=== PATIENT | female | born 1960 | race Caucasian/White ===

== ENCOUNTER 2018-01-21 18:16 | Outpatient (REF) | payer OTHER, SELFPAY ==
[2018-01-21 20:45] LABS: HCT 40.7 % (36.0-46.0); HGB 13.5 g/dL (12.0-15.5)
[2018-01-21 21:31] LABS: ALT 74 U/L (12-78); AST 50 U/L (15-37); Albumin 3.4 g/dL (3.4-5.0); Alkaline Phosphatase 134 U/L (46-116); Anion Gap 12.1 mmol/L (3-11); BUN 15 mg/dL (7-18); Bilirubin, Total 0.3 mg/dL (0.2-1.0); CO2 22.9 mmol/L (21.0-32.0); CREATININE 0.81 mg/dL (0.55-1.02); Calcium 9.1 mg/dL (8.5-10.1); Chloride 105 mmol/L (98-107); Glucose 96 mg/dL (70-100); Magnesium 1.9 mg/dL (1.8-2.4); Potassium 4.1 mmol/L (3.5-5.1); Sodium 140 mmol/L (136-145); TSH (W/Ref FT4) 0.01 uIU/mL (0.358-3.74); Total Protein 7.2 g/dL (6.4-8.2)
[2018-01-21 22:15] LABS: FREE T4 1.67 ng/dL (0.76-1.46)
[2018-01-21 22:29] LABS: Cholesterol 142 mg/dL (50-200); HDL Cholesterol 44 mg/dL (40-60); LDL CHOLESTEROL 87 mg/dL (<100); Triglyceride 107 mg/dL (30-150)
== END 2018-01-21 18:17 ==
LOC: NCHCN 18:16
PROVIDERS: PCP Specialist/Technologist Athletic Trainer; Visit Provider Specialist/Technologist Athletic Trainer
DX: R10.13 Epigastric pain (principal); K21.9 Gastro-esophageal reflux disease without esophagitis
CPT/HCPCS: 80053; 80061; 83721; 83735; 84439; 84443; 85014; 85018

== ENCOUNTER 2018-02-04 15:07 | Outpatient (REF) | payer OTHER, SELFPAY ==
[2018-02-09 14:08] LABS: Helicobacter pylori Ag, Feces Positive (NEGAT)
== END 2018-02-04 15:27 ==
LOC: NCHCN 15:07
PROVIDERS: PCP Specialist/Technologist Athletic Trainer; Visit Provider Specialist/Technologist Athletic Trainer
DX: K21.9 Gastro-esophageal reflux disease without esophagitis (principal)
CPT/HCPCS: 87338

== ENCOUNTER 2018-03-09 00:46 | Outpatient (CLI) | payer OTHER, SELFPAY ==
--- NOTE | 2018-03-09 12:30 | DI.MAMMO_ITS ---
SYMPTOM/DIAGNOSIS: SCREENING, [facility], Z00.00 MAMMOGRAMS: Mammograms were interpreted according to the usual protocol including computer analysis with CAD system, tomosynthesis and C view imaging. Comparison is with the prior examinations. No masses or microcalcifications are seen. There is nothing to suggest malignancy. IMPRESSION: Negative mammogram. Routine screening is recommended. Category 1 , breast density A. MQSA ASSESSMENT OF FINDINGS: Negative. Category 1. Patient will receive a letter notifying them of these results. BI-RAD category A. The breasts are almost entirely fatty.
--- NOTE | 2018-03-09 13:05 | DI.DEXA_ITS ---
SYMPTOM/DIAGNOSIS: [facility], Z00.00, SCREENING FOR OSTEOPOROSIS DEXA SCAN: Routine examination. Evaluation of the spine shows no compression deformities. Evaluation of the left hip shows a total T score of -1.3 and a Z score of -0.4 , this is consistent with osteopenia and an increased fracture risk. Evaluation of the lumbar spine shows a total T score of -0.5 and a Z score of 1.0 which is within normal limits. No evidence of osteoporosis is seen. IMPRESSION: No evidence of osteoporosis.
== END 2018-03-09 01:06 ==
PROVIDERS: PCP Specialist/Technologist Athletic Trainer; Visit Provider Specialist/Technologist Athletic Trainer
DX: Z12.31 Encounter for screening mammogram for malignant neoplasm of breast (principal); Z00.00 Encounter for general adult medical examination without abnormal findings; M85.88 Other specified disorders of bone density and structure, other site
CPT/HCPCS: 77063; 77067; 77080

== ENCOUNTER 2018-11-12 19:35 | Outpatient (REF) | payer OTHER, SELFPAY ==
[2018-11-12 20:12] LABS: TSH 0.04 uIU/mL (0.358-3.74)
== END 2018-11-12 19:55 ==
LOC: NCHCN 19:35
PROVIDERS: PCP Specialist/Technologist Athletic Trainer; Visit Provider Family Medicine
DX: E03.9 Hypothyroidism, unspecified (principal)
CPT/HCPCS: 84443

== ENCOUNTER 2018-12-22 22:42 | Outpatient (REF) | payer OTHER, SELFPAY | END 2018-12-22 23:02 | LOC: NCHCN 22:42 | PROVIDERS: PCP Specialist/Technologist Athletic Trainer; Visit Provider Physician Assistant Medical | DX: R10.9 Unspecified abdominal pain (principal) | CPT/HCPCS: 87086 ==

== ENCOUNTER 2019-02-03 09:55 | Outpatient (REF) | payer OTHER, SELFPAY ==
[2019-02-03 19:47] LABS: Hemoglobin A1C 6.1 % (4.5-6.2)
[2019-02-03 20:01] LABS: ALT 41 U/L (14-59); AST 31 U/L (15-37); FREE T4 1.03 ng/dL (0.76-1.46); TSH 0.78 uIU/mL (0.36-3.74)
[2019-02-07 11:24] LABS: Hepatitis C Ab w Rflx HCV PCR Negative (NEGAT)
== END 2019-02-03 10:15 ==
LOC: NCHCN 09:55
PROVIDERS: PCP Specialist/Technologist Athletic Trainer; Visit Provider Family Medicine
DX: Z00.00 Encounter for general adult medical examination without abnormal findings (principal); R73.09 Other abnormal glucose; E03.9 Hypothyroidism, unspecified; R79.89 Other specified abnormal findings of blood chemistry; Z11.59 Encounter for screening for other viral diseases
CPT/HCPCS: 86803; 83036; 84439; 84443; 84450; 84460

== ENCOUNTER 2019-04-20 00:37 | Outpatient (CLI) | payer OTHER, SELFPAY ==
--- NOTE | 2019-04-20 17:04 | DI.MAMMO_ITS ---
EXAM: MG MAMMO SCREENING CLINICAL HISTORY: [facility], Z00.00, SCREENING TECHNIQUE: Bilateral full field digital CC and MLO mammographic images were obtained with 3D tomosyn thesis and utilizing computer aided detection (CAD). COMPARISON: Available for comparison. FINDINGS: Masses/Architectural Distortion: None seen. Microcalcifications: No suspicious pleomorphic-type are seen. Skin Thickening/Nipple Retraction: None. IMPRESSION: 1. No significant interval change with no specific features of malignancy noted. 2. Unless there is more urgent need, screening mammography is recommended, as per [place] [employer] guidelines. ACR BI-RAD Category- 1 Negative Breast Density - Category A - Almost entirely fatty A negative radiographic report should not delay biopsy if a dominant or clinically suspicious mass is present. Up to ten percent of cancers are not identified on mammography. A negative report may reinforce clinical impression. Adenosis and dense breasts may obscure an underlying neoplasm. False positive reports average 6 to 10%. Patient will receive a letter notifying them of these results.
== END 2019-04-20 00:57 ==
PROVIDERS: PCP Family Medicine; Visit Provider Family Medicine
DX: Z00.00 Encounter for general adult medical examination without abnormal findings (principal); Z12.31 Encounter for screening mammogram for malignant neoplasm of breast
CPT/HCPCS: 77063; 77067

== ENCOUNTER 2020-01-13 12:35 | Outpatient (REF) | payer OTHER, SELFPAY ==
[2020-01-13 19:21] LABS: Hemoglobin A1C 6.4 % (3.8-5.6)
[2020-01-13 19:30] LABS: ALT 42 U/L (14-59); AST 35 U/L (15-37); Albumin 3.6 g/dL (3.4-5.0); Alkaline Phosphatase 143 U/L (46-116); Anion Gap 8.1 mmol/L (3-11); BUN 10 mg/dL (7-18); Bilirubin, Total 0.3 mg/dL (0.2-1.0); CO2 26.9 mmol/L (21.0-32.0); CREATININE 0.88 mg/dL (0.55-1.02); Calcium 9.1 mg/dL (8.5-10.1); Chloride 105 mmol/L (98-107); Glucose 112 mg/dL (74-106); Potassium 4.3 mmol/L (3.5-5.1); Sodium 140 mmol/L (136-145); TSH (W/Ref FT4) 1.05 uIU/mL (0.36-3.74); Total Protein 7.4 g/dL (6.4-8.2)
[2020-01-13 20:02] LABS: Calculated LDL 102 mg/dL (<100); Cholesterol 181 mg/dL (<200); HDL Cholesterol 49 mg/dL (40-60); Triglyceride 152 mg/dL (<150)
== END 2020-01-13 12:55 ==
LOC: NCHCN 12:35
PROVIDERS: PCP Family Medicine; Visit Provider Family Medicine
DX: Z00.00 Encounter for general adult medical examination without abnormal findings (principal); R79.89 Other specified abnormal findings of blood chemistry; C73 Malignant neoplasm of thyroid gland
CPT/HCPCS: 80053; 80061; 83036; 84443; 87086

== ENCOUNTER 2020-01-30 02:18 | Outpatient (CLI) | payer OTHER, SELFPAY ==
--- NOTE | 2020-01-30 | DI.US_ITS ---
EXAM: US ABDOMEN CLINICAL HISTORY: ELEVATED LFT'S, R79.89 TECHNIQUE: Ultrasound abdomen performed using standard protocol. COMPARISON: No exams were available for comparison FINDINGS: ABDOMINAL AORTA AND IVC: Visualized portions normal caliber. PANCREAS: Normal where visualized. LIVER: Limited visualization. Increased echogenicity consistent with fatty infiltration. 17 cm in l ength. Hepatopedal flow in the Portal Vein. GALLBLADDER: No evidence of cholelithiasis. No evidence of wall thickening. No pericholecystic fluid identified. BILIARY SYSTEM: Common bile duct measures 3.5 mm. No intrahepatic biliary ductal dilation. ROSSI'S SIGN: Negative. KIDNEYS: Kidneys are symmetric in size. Mild bilateral renal cortical atrophy. No evidence of renal calculi. No evidence of hydronephrosis. No renal mass or cyst identified. SPLEEN: Not enlarged. ASCITES: None seen. IMPRESSION: 1. Fatty liver. 2. Mild bilateral renal cortical atrophy. DATA REPOSITORY:
== END 2020-01-30 02:38 ==
PROVIDERS: PCP Family Medicine; Visit Provider Family Medicine
DX: K76.0 Fatty (change of) liver, not elsewhere classified (principal); N26.1 Atrophy of kidney (terminal)
CPT/HCPCS: 76700

== ENCOUNTER 2020-02-10 08:13 | Outpatient (REF) | payer OTHER, SELFPAY ==
[2020-02-10 10:53] LABS: Creatinine,Urine 84.58 mg/dL
[2020-02-10 10:55] LABS: Creatinine,24hr Ur 1.27 g/24hr (0.60-1.80); Total Volume 1560 ml
== END 2020-02-10 08:33 ==
LOC: NCHCN 08:13
PROVIDERS: PCP Family Medicine; Visit Provider Family Medicine
DX: N26.1 Atrophy of kidney (terminal) (principal)
CPT/HCPCS: 81050; 82570; 84155

== ENCOUNTER 2020-04-23 01:26 | Outpatient (CLI) | payer OTHER, SELFPAY ==
--- NOTE | 2020-04-23 | DI.MAMMO_ITS ---
EXAM: MAMMO SCREENING CLINICAL HISTORY: [facility], [facility] TECHNIQUE: Mammograms were interpreted according to the usual protocol including computer analysis w [employer] CAD system, tomosynthesis and C-view imaging. COMPARISON: 2012 through 2018 FINDINGS: The breasts are composed of mainly fatty density , Breast Density category A. No suspicious masses or suspicious microcalcifications are seen. No skin thickening or abnormal axillary lymph nodes are seen. There has been no significant change from prior exams. IMPRESSION: BI-RADS Category 1, Negative mammogram Yearly screening mammography is recommended. Breast Density - Category A, fatty density. A negative radiographic report should not delay biopsy if a dominant or clinically suspicious mass is present. Up to ten percent of cancers are not identified on mammography. A negative report may reinforce clinical impression. Adenosis and dense breasts may obscure an underlying neoplasm. False positive reports average 6 to 10%. Patient will receive a letter notifying them of these results.
== END 2020-04-23 01:46 ==
PROVIDERS: PCP Family Medicine; Visit Provider Family Medicine
DX: Z00.00 Encounter for general adult medical examination without abnormal findings (principal); Z12.31 Encounter for screening mammogram for malignant neoplasm of breast
CPT/HCPCS: 77063; 77067

== ENCOUNTER 2020-07-13 13:26 | Outpatient (REF) | payer OTHER, SELFPAY ==
[2020-07-13 17:07] LABS: Hemoglobin A1C 6.5 % (<5.7)
[2020-07-13 17:08] LABS: BUN 14 mg/dL (7-18); CREATININE 0.9 mg/dL (0.55-1.02); Chloride 106 mmol/L (98-107); Glucose 89 mg/dL (74-106); Potassium 4.1 mmol/L (3.5-5.1); Sodium 141 mmol/L (136-145); TSH 0.87 uIU/mL (0.36-3.74)
== END 2020-07-13 13:27 | disposition home or self-care (01) ==
LOC: NCHCN 13:26
PROVIDERS: PCP Family Medicine; Visit Provider Family Medicine
DX: E03.9 Hypothyroidism, unspecified (principal); R73.03 Prediabetes; N26.1 Atrophy of kidney (terminal)
CPT/HCPCS: 80048; 83036; 84439; 84443

== ENCOUNTER 2020-09-10 03:18 | Outpatient (CLI) | payer OTHER, SELFPAY ==
[2020-09-10 11:47] LABS: Source Nasal/Nares
[2020-09-10 19:02] LABS: COVID-19 PCR Negative (Negative)
== END 2020-09-10 03:19 | disposition home or self-care (01) ==
LOC: LBO 03:18
PROVIDERS: PCP Family Medicine; Visit Provider Student in an Organized Health Care Education/Training Program
DX: Z20.822 Contact with and (suspected) exposure to COVID-19 (principal); Z01.818 Encounter for other preprocedural examination
CPT/HCPCS: 87635

== ENCOUNTER 2020-09-11 12:25 | Day surgery (SDC) | payer OTHER, SELFPAY ==
[2020-09-11 12:56] VITALS: BP 133/89; PULSE 74; RESP 16; TEMP 36.9; O2SAT 100
[2020-09-11] MEDS: Lactated Ringers 1,000 ML 80 ML IV (13:24)
[2020-09-11] MEDS: CLINDAMYCIN 900 MG/50 ML BAG 50 MG IVPB (13:36)
--- NOTE | 2020-09-11 13:38 | W.PM.DSUDISC ---
Discharge Plan Disposition Patient Disposition: HOME Condition: Good Discharge Details Reason For Visit: Right Ganglion Cyst Excision Attending Provider: Sebas Lindsey Primary Care Provider: Génesis Mann V Home Meds and New Rx's Prescriptions: New acetaminophen [Tylenol Extra Strength] 500 mg tablet 500 mg PO Q6H PRNQty: 90 RF: 0 ibuprofen 600 mg tablet 600 mg PO TID Qty: 90 RF: 0 Continued methocarbamol 500 mg tablet 500 mg PO DAILY PRNRF: 0 levothyroxine 175 mcg tablet 175 mcg PO DAILY RF: 0 omeprazole 40 mg capsule,delayed release(DR/EC) 40 mg PO DAILY RF: 0 losartan 25 mg tablet 25 mg PO DAILY RF: 0 gabapentin 300 mg capsule 300 mg PO BID RF: 0 estradiol 0.5 mg tablet 0.5 mg PO DAILY RF: 0 bupropion HCl 150 mg tablet extended release 24 hr 150 mg PO DAILY RF: 0 Victoza 2-Wali 0.6 mg/0.1 mL (18 mg/3 mL) pen injector 1.2 mg SUBCUT DAILY RF: 0 loratadine [Claritin] 10 mg Tablet 10 mg PO DAILY RF: 0 Discharge Instructions Additional Instructions: Wrist Instructions Activity: You should keep the hand/wrist elevated as much as possible for the first few days. You may use the other fingers as tolerated but avoid trying to do too much too soon. You may perform light activities with the dressing in place. Dressing/Cast: Your dressing should stay in place for 72 hours. Do NOT get it wet. You may loosen the HIMA wrap if you feel it is too tight and then rewrap more loosely. Medications: - You should take Tylenol and Ibuprofen for baseline pain control. - You may apply ice over the wrist, just double bag so it doesn't get wet. Follow-up: 10-14 days Referrals: Sebas Lindsey MD [ [facility] STAFF PHYSICIAN] - Activity:: Activity as Tolerated Remove Dressings/Wound Care:: 72 hours Shower/Bathe:: 72 hours Diet:: As Tolerated Discharge Orders Discharge Orders: Discharge Order (Routine); Ordered 09/11/20 Ordered By: Génesis Doty DS: Diagnosis Discharge Diagnosis (1) Ganglion cyst of volar aspect of right wrist: Status: Acute
[2020-09-11] MEDS: Sodium Bicarbonate 50 MEQ/50 ML VIAL (14:19)
[2020-09-11 14:56] VITALS: BP 126/81; PULSE 86; RESP 18; TEMP 36.3; O2SAT 94
--- NOTE | 2020-09-11 20:01 | W.PM.OP ---
Date of service: 09/11/20 Time of Service: 13:36 Operative Note Operative Note DATE OF PROCEDURE: 09/11/20 PRE-OP DIAGNOSIS: Right Volar Wrist Ganglion Cyst POST-OP DIAGNOSIS: same PROCEDURE: Excision of Right Volar Wrist Ganglion Cyst SURGEON: Sebas Lindsey ANESTHESIA TYPE: MAC Refer to Anesthesia Record ESTIMATED BLOOD LOSS: 0 PATHOLOGY: none sent TOURNIQUET TIME: 0 COMPLICATIONS: None Patient was transported to: PACU Patient's condition: stable Indications: Marcelina is a 60 year old female who I have seen for a volar wrist ganglion cyst. It has continued to be bothersome despite some conservative options. Its size and interference with activities continues to cause problems. Therefore, I offered excision of the volar wrist cyst. I discussed the risks to include bleeding, infection, pain, stiffness, damage to nerve and vessels, recurrence. Despite these risks, she elects to proceed. Findings: There was an ellipitical ganglion cyst (approximately [id number]) arising from the radio-scaphoid joint between FCR and radial artery. Some inflammatory capsule was adhesed to an arterial branch. Procedure Description: Marcelina was greeted in the preoperative holding area. Identity was confirmed and the correct site was identified and marked. Consent was reviewed the patient and signed. History and physical was updated. The patient to take not to the operating room placed in supine position. All bony prominences were well-padded. A nonsterile tourniquet was placed high up onto the right arm but not used. The arm was prepped with ChloraPrep and draped in a standard fashion. The surgical site was marked on the skin and injected with 1% lidocaine with epinephrine buffered with sodium bicarbonate. The skin was incised sharply. Deeper dissection was carried out with tenotomy scissors and careful attention to vascular branches in this area. The mass was identified and protected with dissection carried around. The cyst capsul was entered easily on the proximal and ulnar aspect. However, there was notable adherence between the radial aspect of the cyst and the radial artery brance. I had difficulty teasing it off completely, so I deflated the cyst leaving a small aspect of capsul from the cyst attached. I then identified the stalk and followed down to the carpus. The cyst structure was resected and its origin from the carpus was opened with tenotomy scissors and rongeur. The wound was then thoroughly irrigated. There is no major arterial bleeding. The wound was dry. The deep layer was reapproximated with a 3-0 Vicryl. The skin was closed with a running 4-0 Monocryl followed by skin glue, gauze, and Feliciano wrap. The wrist was placed into a removable wrist brace. At the end the case all counts were correct. The patient was awakened from anesthesia and taken to the PACU in stable condition. There were no noted complications.
== END 2020-09-11 15:40 | disposition home or self-care (01) ==
PROVIDERS: PCP Family Medicine; Visit Provider Student in an Organized Health Care Education/Training Program
PROC: (CPT 25111; principal; 2020-09-11 14:45)
DX: M67.431 Ganglion, right wrist (principal); E11.9 Type 2 diabetes mellitus without complications; K21.9 Gastro-esophageal reflux disease without esophagitis
CPT/HCPCS: 25111; J1885; J2001; J2704

== ENCOUNTER 2020-10-25 13:32 | Outpatient (CLI) | payer OTHER, SELFPAY ==
--- NOTE | 2020-10-25 11:30 | DI.RAD_ITS ---
Exam(s) XR WRIST RT COMPL NAVICULAR EXAM: XR WRIST RT COMPL NAVICULAR CLINICAL HISTORY: eval R thumb pain. TECHNIQUE: 2D digital imaging was performed. COMPARISON: No exams were available for comparison FINDINGS: There is no evidence of fracture or carpal dislocation. No significant ulnar variance. Scaphoid vie ws unremarkable. Small benign bone island is noted in the distal radius. Bone density is normal. IMPRESSION: No fracture evident. DATA REPOSITORY: RADIATION DOSE DELIVERED:
== END 2020-10-25 13:33 | disposition home or self-care (01) ==
LOC: DIORS 13:32
PROVIDERS: PCP Family Medicine; Referring Provider Family Medicine; Visit Provider Student in an Organized Health Care Education/Training Program
DX: M79.644 Pain in right finger(s) (principal); M89.8X3 Other specified disorders of bone, forearm
CPT/HCPCS: 73110

== ENCOUNTER 2020-11-19 12:12 | Outpatient (REF) | payer OTHER, SELFPAY ==
[2020-11-20 12:47] LABS: Helicobacter pylori Ag, Feces Positive (Negative)
== END 2020-11-19 12:13 | disposition home or self-care (01) ==
LOC: LBN 12:12
PROVIDERS: PCP Family Medicine; Visit Provider Family Medicine
DX: A04.8 Other specified bacterial intestinal infections (principal)
CPT/HCPCS: 87338

== ENCOUNTER 2020-12-05 01:57 | Outpatient (CLI) | payer OTHER, SELFPAY ==
--- NOTE | 2020-12-05 | DI.CT_ITS ---
Exam(s) CT NECK W EXAM: CT NECK W CLINICAL HISTORY: RT SIDED NECK MASS, R22.1, H/O THYROID CA. TECHNIQUE: Imaging Protocol: Axial computed tomography images with coronal and sagittal reformatted images were created and reviewed CONTRAST MATERIAL: Intravenous: Omnipaque 350 Contrast volume:structured data in ml Contrast route:I V - Oral: yes / no COMPARISON: No exams were available for comparison FINDINGS: Parotids/submandibular/: Normal. Thyroid: Status post thyroidectomy. No recurrence mass. Lymphadenopathy: There are scattered lymph nodes seen along the level one to level three all measuri ng less than 8 mm in short axis diameter which are physiologic in nature. Carotids/Jugular: Within normal limits. Soft tissues: The epiglottis and vocal cords are within normal limits. Images through both lung apic es are unremarkable. Orbits are unremarkable where visualized. Bones: Degenerative disc changes at C5-6. Facet degenerative changes are also present. Sinuses: Visualized portions of the sinuses and mastoid air cells appear clear. IMPRESSION: Status post thyroidectomy. No visible neck mass or evidence of adenopathy. RADIATION DOSE DELIVERED: 457.01mGy.cm Total DLP DATA REPOSITORY: All CT scans at this facility are submitted to the National Radiology Data Registry (NRDR) Dose Index Registry (DIR) with the [employer] (ACR). RADIATION OPTIMIZATION: All CT scans at this facility use at least one of these dose optimization te chniques: automated exposure control; mA and/or kV adjustment per patient size (includes targeted exa ms where dose is matched to clinical indication); or iterative reconstruction.
[2020-12-05 15:03] LABS: CREATININE 0.9 mg/dL (0.55-1.02)
[2020-12-05] MEDS: Normal Saline - Diluent 50 ML VIAL IV (15:33)
[2020-12-05] MEDS: Omnipaque 350 MG/ML 100 ML BTL IJ (15:34)
[2020-12-06 18:47] LABS: Thyroglobulin Antibody <1.8 IU/mL (<1.8); Thyroglobulin Tumor Marker <0.1 ng/mL
== END 2020-12-05 02:17 ==
PROVIDERS: PCP Family Medicine; Visit Provider Family Medicine
DX: Z85.850 Personal history of malignant neoplasm of thyroid (principal); Z90.89 Acquired absence of other organs
CPT/HCPCS: 70491; 82565; 84432; 86800; J3490

== ENCOUNTER 2021-03-04 13:33 | Outpatient (CLI) | payer OTHER, SELFPAY ==
[2021-03-04 15:41] LABS: Source Nasal/Nares
[2021-03-04 18:57] LABS: COVID-19 PCR Negative (Negative)
== END 2021-03-04 13:34 | disposition home or self-care (01) ==
LOC: LBO 13:33
PROVIDERS: PCP Family Medicine; Visit Provider Nurse Practitioner Family
DX: Z20.822 Contact with and (suspected) exposure to COVID-19 (principal); Z01.818 Encounter for other preprocedural examination
CPT/HCPCS: 87635

== ENCOUNTER 2021-03-05 02:33 | Outpatient (CLI) | payer OTHER, SELFPAY ==
--- NOTE | 2021-03-05 | DI.RAD_ITS ---
Exam(s) XR KNEE LT 3V AP,LAT,ASH EXAM: XR KNEE LT 3V AP,LAT,ASH CLINICAL HISTORY: LT KNEE PAIN, M25.562. TECHNIQUE: 2D digital imaging was performed of the left knee. Three images were obtained. AP, late ral and AP tunnel views were obtained. COMPARISON: No exams were available for comparison FINDINGS: BONES: No acute fracture is present. No bony destructive lesion is seen. There is a small enthesophy te at the superior patella. JOINTS: The knee is normally aligned. No joint effusion is seen. SOFT TISSUE: Normal. IMPRESSION: Normal radiographs of the left knee. DATA REPOSITORY: RADIATION DOSE DELIVERED:
== END 2021-03-05 02:53 ==
PROVIDERS: PCP Family Medicine; Visit Provider Family Medicine
DX: M25.562 Pain in left knee (principal)
CPT/HCPCS: 73562

== ENCOUNTER 2021-05-03 00:11 | Outpatient (CLI) | payer OTHER, SELFPAY ==
--- NOTE | 2021-05-03 07:40 | DI.MAMMO_ITS ---
Exam(s) MAMMO SCREENING EXAM: MAMMO SCREENING CLINICAL HISTORY: [facility] Z00.00. SCREENING MAMMO FOR BREAST CANCER TECHNIQUE: Bilateral full field digital CC and MLO mammographic images were obtained with 3D tomosyn thesis and utilizing computer aided detection (CAD). COMPARISON: Available for comparison. FINDINGS: Masses/Architectural Distortion: None seen. Microcalcifications: No suspicious pleomorphic-type are seen. Skin Thickening/Nipple Retraction: None. IMPRESSION: 1. No significant interval change with no specific features of malignancy noted. 2. Unless there is more urgent need, screening mammography is recommended, as per [place] [employer] guidelines. BI-RADS Category 1 - Negative Breast Density - Category A - Almost entirely fatty Breast density category C or D implies that the patient has dense breast tissue. Dense breast tissue is very common and is not abnormal but dense breast tissue can make it harder to find cancer on a ma mmogram. Also, dense breast tissue may increase their breast cancer risk. This information about the result of the mammogram report was provided to the patient to raise their awareness. Use this report when you speak with the patient about their risks for breast cancer, which includes their family hist ory. At that time, you may recommend for more screening tests (Ultrasound or MRI) as they might be us eful based on their risk. A negative radiographic report should not delay biopsy if a dominant or clinically suspicious mass is present. Up to ten percent of cancers are not identified on mammography. A negative report may reinforce clinical impression. Adenosis and dense breasts may obscure an underlying neoplasm. False positive reports average 6 to 10%. Patient will receive a letter notifying them of these results.
--- NOTE | 2021-05-03 08:00 | DI.DEXA_ITS ---
Exam(s) XR DEXA BONE DENSITY W/WO BENITO EXAM: XR DEXA BONE DENSITY W/WO BENITO CLINICAL HISTORY: [facility] Z00.00, SCREENING FOR OSTEOPOROSIS TECHNIQUE: COMPARISON: Comparison examination is 03/09/2018. FINDINGS: Lateral Spine Image: Unremarkable. No compression deformities identified. Left hip: Total T-Score: -1.2. This compares to -1.3 on the prior examination. Total Z-Score: -0.1 T- and Z-scores: Findings consistent with osteopenia. Lumbar Spine: Total T-Score: -0.4. This compares to -0.5 on the prior examination. Total Z-Score: 1.3 T- and Z-scores: Within normal limits. IMPRESSION: 1. No evidence of osteoporosis. 2. Osteopenia in the left hip.
== END 2021-05-03 00:31 ==
PROVIDERS: PCP Family Medicine; Visit Provider Family Medicine
DX: Z12.31 Encounter for screening mammogram for malignant neoplasm of breast (principal); Z13.820 Encounter for screening for osteoporosis; M85.88 Other specified disorders of bone density and structure, other site
CPT/HCPCS: 77063; 77067; 77080

== ENCOUNTER 2021-08-21 02:41 | Outpatient (CLI) | payer OTHER, SELFPAY ==
[2021-08-21 10:22] LABS: Hemoglobin A1C 6.3 % (<5.7)
[2021-08-21 11:05] LABS: Anion Gap 8.6 mmol/L (3-11); BUN 13 mg/dL (7-18); CO2 27.4 mmol/L (21.0-32.0); CREATININE 0.8 mg/dL (0.55-1.02); Calcium 8.8 mg/dL (8.5-10.1); Calculated LDL 105 mg/dL (<100); Chloride 106 mmol/L (98-107); Cholesterol 186 mg/dL (<200); Glucose 100 mg/dL (74-106); HDL Cholesterol 59 mg/dL (40-60); Potassium 4.3 mmol/L (3.5-5.1); Sodium 142 mmol/L (136-145); TSH 2.37 uIU/mL (0.36-3.74); Triglyceride 113 mg/dL (<150)
== END 2021-08-21 02:42 | disposition home or self-care (01) ==
LOC: LBO 02:43
PROVIDERS: PCP Family Medicine; Visit Provider Family Medicine
DX: E03.9 Hypothyroidism, unspecified (principal); R73.03 Prediabetes
CPT/HCPCS: 36415; 80048; 80061; 83036; 84443

== ENCOUNTER → 2021-12-03 00:41 | Outpatient (CLI) | payer OTHER, SELFPAY ==
--- NOTE | 2021-12-03 08:45 | DI.NM_ITS ---
APPROVED REPORT Exam: Exercise Treadmill Patient Location: Out-Patient Room/Bed: Stress Nurse: Екатерина Patel RN Ordering Provider:DARYL DAVIES, Contact Number: [phone] BMI: 30.86 Baseline Rhythm: Sinus Bradycardia Indications: DYSPNEA ON EXERTION Medical History Medical History: Peripheral neuropathy, BALBIR, GERD, Hiatal hernia, HTN, Carcinoma of thyroid gland, hy pothyroidism, PCOS, pre DM Cardiac Medications: Losartan, Omeprazole Allergies: PCN, Keflex, Belladonna, Lactose, Gluten, Flagyl, Tape, Teluin Cardiac Risk Factors: FHX of CAD, HTN, DM Previous Cardiac Procedures: None Pretest Chest Pain Characteristics: None Exercise History: Physically active Physical Disabilities: None Lung Sounds: Clear to auscultation Heart Sounds: Regular Stress Test Details Test: Exercise stress testing was performed using a Manuelito protocol, modified in stage 4. Nuclear Acquisition: Rest Tc-99m/Stress Tc-99m 1 day Rest Isotope: Tc-99m Sestamibi. Dose: 11.5 Date: 12/03/2021 Injection Time: 0850 Stress Isotope: Tc-99m Sestamibi. Dose: 36.0 Date: 12/03/2021 Injection Time: 1031 HR Resting HR Supine: 57 bpm Max Heart Rate (APMHR): 157.493057 bpm Resting HR Standin bpm Target HR (85% APMHR): 133.253711 bpm Max HR Achieved: 145 bpm % of APMHR: 92.36 Recovery HR: 77 bpm HR response to stress: Normal HR response to stress BP Resting BP Supine: 168/90 mmHg Resting BP Standin/88 mmHg Max BP: 170/82 mmHg Recovery BP: 150/80 mmHg BP response to stress: Normal blood pressure response to stress. ECG Resting ECG: Sinus Bradycardia Ectopy: None Stress ECG: Sinus Tachycardia ST Change: No significant ST segment changes noted Arrhythmia: None Recovery ECG: Sinus Rhythm Recovery ST Change: No significant ST segment changes noted Recovery Arrhythmia: None Clinical Reason for Termination: Fatigue, Dyspnea Stress Symptoms: Dyspnea, General Fatigue Exercise duration: 10 min20 sec Highest Stage Reached: Stage 4: 4.2 mph at 16% grade. Exercise capacity: 11.23 METs Elliott Treadmill Score: 9.7 Rate Pressure Product: 18405 Stress ECG Conclusion 1. Resting electrocardiogram was within normal limits 2. Patient exercised on the Manuelito protocol and completed a workload of 11.23 METS, limited by fatigue 3. Normal heart rate and blood pressure response to exercise. The patient achieved 92 percent of pre dicted heart rate for age 4. There was no electrocardiographic evidence of myocardial ischemia 5. There were no significant dysrhythmias 6. See MPI report Elliott Treadmill Score is 9.7 which is Low risk. Stress Test Summary STAGE Time (mins) Speed (mph) Grade (%) HR BP SYMPTOMS METS Supine 57 168/90 SpO2 98% Standing 75 158/88 1 3 1.7 10 92 158/88 4.6 2 6 2.5 12 106 164/84 7 3 9 3.4 14 132 170/82 10.2 1 min recovery 120 160/60 SpO2 96% 3 min recovery 86 170/80 6 min recovery 77 150/80 Speed modified in the fourth stage to encourage continuation of exercise following tracer injection. MPI Conclusion Normal myocardial perfusion without evidence of ischemia or prior infarction EF is 55%, normal wall motion Radiologist Interpretation Radiologist agrees with Commercial Real Estate Agent's Interpretation. Radiologist Interpretation by: Miguel Angel Jean Baptiste MD Interpretation Date/Time: 12/05/2021 15:33:18
== END ==
PROVIDERS: PCP Family Medicine; Visit Provider Family Medicine
DX: R06.09 Other forms of dyspnea (principal)
CPT/HCPCS: 78452; 93017

== ENCOUNTER 2022-04-01 15:01 | Outpatient (REF) | payer OTHER, SELFPAY ==
--- NOTE | 2022-04-01 11:00 | PAPFT_PTH ---
PATIENT: Marcelina Hanna LOC: [facility]#:[id number] AGE/SX: 61/F ROOM: RE04/01/[address]: Génesis Mann V : 1960 BED: DIS: 04/01/2022 SPEC #: [id number] RECD: 04/01/22 17:50 STATUS: KATHERIN REBarbara #: [id number] ISATU: 04/01/22 11:[address]: Génesis Mann V DEPT: [facility] Cytology RECD BY: Izzy Green Tissues: 1 - CX/ENDOCX FOR PAP SMEARS Procedures: PAP THIN PREP/[facility] Screening HPV DNA PROBE Comments: [id number]
[2022-04-01 15:55] LABS: ALT 44 U/L (14-59); AST 39 U/L (15-37); Alkaline Phosphatase 121 U/L (46-116); Anion Gap 7.4 mmol/L (3-11); BUN 17 mg/dL (7-18); Bilirubin, Total 0.3 mg/dL (0.2-1.0); CO2 27.6 mmol/L (21.0-32.0); Calcium 9.2 mg/dL (8.5-10.1); Chloride 105 mmol/L (98-107); FREE T4 1.27 ng/dL (0.76-1.46); Glucose 108 mg/dL (74-106); Magnesium 2.3 mg/dL (1.8-2.4); Potassium 4.4 mmol/L (3.5-5.1); Sodium 140 mmol/L (136-145); TSH 3.91 uIU/mL (0.36-3.74); Total Protein 8.3 g/dL (6.4-8.2)
== END 2022-04-01 15:02 | disposition home or self-care (01) ==
LOC: NCHCN 15:01
PROVIDERS: PCP Family Medicine; Visit Provider Family Medicine
DX: Z12.4 Encounter for screening for malignant neoplasm of cervix (principal); Z11.51 Encounter for screening for human papillomavirus (HPV); R25.2 Cramp and spasm; E03.9 Hypothyroidism, unspecified; Z00.00 Encounter for general adult medical examination without abnormal findings
CPT/HCPCS: 80053; 88142; 83735; 84439; 84443; 87624

== ENCOUNTER → 2022-05-05 03:23 | Outpatient (CLI) | payer OTHER, SELFPAY ==
--- NOTE | 2022-05-05 | DI.MAMMO_ITS ---
Exam(s) MAMMO SCREENING EXAM: MAMMO SCREENING CLINICAL HISTORY: SCREENING, Z12.31 TECHNIQUE: Mammograms were interpreted according to the usual protocol including computer analysis w [employer] CAD system, tomosynthesis and C-view imaging. COMPARISON: 2012 through 2020 FINDINGS: The breasts are composed of mainly fatty density , Breast Density category A. No suspicious masses or suspicious microcalcifications are seen. No skin thickening or abnormal axillary lymph nodes are seen. There has been no significant change from prior exams. IMPRESSION: BI-RADS Category 1, Negative mammogram Yearly screening mammography is recommended. Breast Density - Category A, fatty density. A negative radiographic report should not delay biopsy if a dominant or clinically suspicious mass is present. Up to ten percent of cancers are not identified on mammography. A negative report may reinforce clinical impression. Adenosis and dense breasts may obscure an underlying neoplasm. False positive reports average 6 to 10%. Patient will receive a letter notifying them of these results.
== END ==
PROVIDERS: PCP Family Medicine; Visit Provider Family Medicine
DX: Z12.31 Encounter for screening mammogram for malignant neoplasm of breast (principal)
CPT/HCPCS: 77063; 77067

== ENCOUNTER 2022-10-01 15:56 | Outpatient (REF) | payer OTHER, SELFPAY ==
[2022-10-02 09:46] LABS: Lyme Ab w Rflx to Lyme Confirm Negative (Negative)
[2022-10-04 16:22] LABS: Anaplasma phagocytophilum Negative (Negative); B. miyamotoi PCR Negative (Negative); Babesia divergens/MO-1 Negative (Negative); Babesia duncani Negative (Negative); Babesia microti Negative (Negative); Ehrlichia chaffeensis Negative (Negative); Ehrlichia ewingii/canis Negative (Negative); Ehrlichia muris eauclairensis Negative (Negative)
== END 2022-10-01 15:57 | disposition home or self-care (01) ==
LOC: LBN 15:56
PROVIDERS: PCP Family Medicine; Visit Provider Physician Assistant Medical
DX: R50.9 Fever, unspecified (principal); Z11.8 Encounter for screening for other infectious and parasitic diseases
CPT/HCPCS: 87798; 86618

== ENCOUNTER 2023-04-13 20:54 | Outpatient (CLI) | payer OTHER, SELFPAY ==
[2023-04-13 09:30] LABS: Hemoglobin A1C 6.1 % (<5.7)
[2023-04-13 10:07] LABS: ALT 54 U/L (14-59); AST 49 U/L (15-37); Albumin 3.6 g/dL (3.4-5.0); Alkaline Phosphatase 128 U/L (46-116); Anion Gap 10.7 mmol/L (3-11); BUN 14 mg/dL (7-18); Bilirubin, Total 0.3 mg/dL (0.2-1.0); CO2 26.3 mmol/L (21.0-32.0); CREATININE 0.9 mg/dL (0.55-1.02); Calcium 9.2 mg/dL (8.5-10.1); Calculated LDL 139 mg/dL (<100); Chloride 104 mmol/L (98-107); Cholesterol 225 mg/dL (<200); Estimated GFR 71.39 (mL/min/1.73m2); Glucose 114 mg/dL (74-106); HDL Cholesterol 56 mg/dL (40-60); Potassium 4.2 mmol/L (3.5-5.1); Sodium 141 mmol/L (136-145); TSH (W/Ref FT4) 2.09 uIU/mL (0.36-3.74); Total Protein 7.7 g/dL (6.4-8.2); Triglyceride 154 mg/dL (<150)
== END 2023-04-13 20:55 | disposition home or self-care (01) ==
LOC: LBO 20:54
PROVIDERS: PCP Family Medicine; Visit Provider Family Medicine
DX: R79.89 Other specified abnormal findings of blood chemistry (principal); Z00.00 Encounter for general adult medical examination without abnormal findings; R73.03 Prediabetes; E03.9 Hypothyroidism, unspecified
CPT/HCPCS: 36415; 80053; 80061; 83036; 84443

== ENCOUNTER → 2023-05-07 02:55 | Outpatient (CLI) | payer OTHER, SELFPAY ==
--- NOTE | 2023-05-07 | DI.MAMMO_ITS ---
Exam(s) MAMMO SCREENING EXAM: MAMMO SCREENING CLINICAL HISTORY: Z12.31 Screening TECHNIQUE: Mammograms were interpreted according to the usual protocol including computer analysis w [employer] CAD system, tomosynthesis and C-view imaging. COMPARISON: 2013 through 2021 FINDINGS: The breasts are composed of mainly fatty density , Breast Density category A. No suspicious masses or suspicious microcalcifications are seen. No skin thickening or abnormal axillary lymph nodes are seen. There has been no significant change from prior exams. IMPRESSION: BI-RADS Category 1, Negative mammogram Yearly screening mammography is recommended. Breast Density - Category A, fatty density. A negative radiographic report should not delay biopsy if a dominant or clinically suspicious mass is present. Up to ten percent of cancers are not identified on mammography. A negative report may reinforce clinical impression. Adenosis and dense breasts may obscure an underlying neoplasm. False positive reports average 6 to 10%. Patient will receive a letter notifying them of these results.
== END ==
PROVIDERS: PCP Family Medicine; Visit Provider Family Medicine
DX: Z12.31 Encounter for screening mammogram for malignant neoplasm of breast (principal); R92.313 Mammographic fatty tissue density, bilateral breasts
CPT/HCPCS: 77063; 77067

== ENCOUNTER 2023-09-08 04:34 | Outpatient (CLI) | payer OTHER, SELFPAY ==
[2023-09-08 08:07] LABS: ALT 39 U/L (14-59); AST 29 U/L (15-37); Calculated LDL 91 mg/dL (<100); Cholesterol 167 mg/dL (<200); HDL Cholesterol 54 mg/dL (40-60); Triglyceride 113 mg/dL (<150)
[2023-09-08 08:21] LABS: Creatine Kinase 130 U/L (26-192)
== END 2023-09-08 04:35 | disposition home or self-care (01) ==
LOC: LBO 04:34
PROVIDERS: PCP Family Medicine; Visit Provider Family Medicine
DX: R79.89 Other specified abnormal findings of blood chemistry (principal); Z00.00 Encounter for general adult medical examination without abnormal findings; E03.9 Hypothyroidism, unspecified; R73.03 Prediabetes
CPT/HCPCS: 36415; 80061; 82550; 84450; 84460

== ENCOUNTER 2024-02-15 15:04 | Outpatient (REF) | payer OTHER, SELFPAY ==
--- OUTSIDE RECORDS SUMMARY | 2024-02-15 15:06 | XMS_ITS | Encounter Summary ---
Author Organization [facility] [place] [address] Care Team Providers Care Animal Sitter Name Role Phone Génesis Mann MD Primary Care Provider [phone] Encounter Details Date Type Department Care Team (Latest Contact Info) Description 09/22/2023 1:00 PM EDT [place] [address] Teodora Churchill MD [facility] [address] [facility] [place] [address] Penicillin allergy; Adverse effect of penicillin, initial encounter; Angioedema, initial encounter; Allergy to cephalosporin Social History Tobacco Use Types Packs/Day Years Used Date Smoking Tobacco: Former Cigarettes Q uit: 09/26/1986 Smokeless Tobacco: Never Comments:quit 1986 Alcohol Use Standard Drinks/Week Comments Yes 7 (1 standard drink = 0.6 oz pur e alcohol) Sex and Gender Information Value Date Recorded Sex Assigned at Not on file Gender Identity Not on file Sexual Orientation Not on file documented as of this encounter Last Filed Vital Signs Vital Sign Reading Time Taken Comments Blood Pressure 132/88 09/22/2023 3:54 PM EDT Pulse 65 09/22/2023 3:54 PM EDT Temperature - - Respiratory Rate - - Oxygen Saturation 98% 09/22/2023 3:54 PM EDT Inhaled Oxygen Concentration - - Weight 96.3 kg (212 lb 6.4 oz) 09/22/2023 1:10 P M EDT Height - - Body Mass Index 31.35 04/24/2021 1:56 PM EST documented in this encounter Progress Notes * Cait Romero RN - 09/22/2023 1:00 PM EDT Patient in clinic for skin testing. Prior to skin test assessment lungs clear to ausculation, HR WNL, no rash, hives noted. Patient denies use of antihistamine in last week. Procedure explained to patient. No signs and symptoms of allergic reaction present. Consent signed. SPT placed by nurse at 13:30. Post 15 minutes observation. Results read by provider. Proceeded to next dose. IDT first set placed by nurse at 14:00. Post 15 minutes observation. Results read by provider. Proceeded to oral drug challenge. Patient in Clinic for Oral Drug Challenge to Amoxicillin 500 mg. Medication provided by office. Oral Drug challenge procedure reviewed with patient. Patient verbalized understanding. Prior to onset of challenge, the patient is well appearing with normal vital signs and without rhinorrhea, conjunctival injection, oropharyngeal angioedema, or rash. Lungs are clear to auscultation and heart has regular rate and rhythm. VSS : BP: 122/80 HR: 80 bpm spO2: 96% RA At 14:23, Amoxicillin 50 mg given, post 30 mins observation no report or symptoms of reaction. Proceeded to next dose. At 14:53, Amoxicillin 450 mg given, post 60 mins observation no report or symptoms of reaction. VSS : BP: 132/88 HR: 65 bpm spO2: 98% RA Post observation no report of reaction, nursing observation completed at 15:57. Patient awaiting tosee provider. At completion of challenge, the patient is stable, well appearing with VSS. No rash/hives noted andwithout rhinorrhea, conjunctival injection, oropharyngeal angioedema. The patient left the clinic without signs or symptoms of allergic. * Teodora Churchill MD - 09/22/2023 1:00 PM EDT CC: allergy testing HPI: Marcelina Hanna is a 63 y.o. female with PMH hearing loss presenting for follow up of penicillin allergy. 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 pylori resistant to treatment requiring penicillin allergy testing or desensitization. I initially saw her on August 10, 2023 at which time we discussed her history of angioedema with penicillin, which was a remote reaction at 15 years of age with swelling of her throat and face and she also had facial swelling and hives with oral cephalosporins in 1990 when she was treated for endometritis. PENICILLIN TESTING SPT: Saline (-) Histamine (-) PCN G 10,000 units/mL (-) PRE PEN full strength (-) Cefazolin 2mg/mL (-) ID: Saline (-) Histamine (13, 40) PCN G 10,000 units/mL (-) PRE PEN full strength (-) Cefazolin 2mg/mL Amoxicillin Challenge: 50mg amoxicillin given at 1423. Reaction after 30 minutes: none 450mg amoxicillin given at 1453. Reaction after 60 minutes: none Total dose of 500mg amoxicillin given. No evidence of a Type I (immediate) reaction to amoxicillin. Time of discharge: 1601 ASSESSMENT/PLAN: 63 y.o. female with remote history of angioedema with penicillin and oral cephalosporins in need ofaccess to penicillins for treatment of H. pylori. Allergy skin testing today was negative to penicillin and cefazolin. This was followed up with a drug challenge to amoxicillin which the patient passed. PENICILLIN ALLERGY The patient had penicillin skin testing today which was negative, showing the likelihood of an IgE mediated reaction is less than 2%. The patient was then given amoxicillin in the clinic and monitored. The patient had no evidence of a Type I (immediate reaction) to amoxicillin. Patient is no longerconsidered allergic to penicillins and this was removed from the allergy list. Patient was counseled that passing the challenge today rules out an immediate, life- threatening reaction, such as anaphylaxis. Patient was counseled that delayed reactions can still occur, and may appear 24-48h after their challenge. These reactions are typically characterized by an itchy rash, most commonly on the torso. These are not considered life-threatening and typically resolve on their own without treatment. Patient was counseled to call in the event that a delayed rash occurs so the drug can be added back to their allergy list. Patient required amoxicillin therapy for H. pylori. She was counseled that she can start this therapy right away after passing the challenge today. CEPHALOSPORIN ALLERGY: We are unable to do skin testing to oral cephalosporins and I do not know which cephalosporin she specifically received that caused her reaction. We tested her today to an alternative agent, cefazolin. This testing was negative so she can receive cefazolin in the future if she needs it. Teodora Churchill MD documented in this encounter Plan of Treatment Upcoming Encounters Date Type Department Care Team (Late st Contact Info) Description 03/25/2024 9:30 AM EDT Office [place] [address] Inga Jameson MD [facility] [place] [address] documented as of this encounter Visit Diagnoses Diagnosis Penicillin allergy Other drug allergy Adverse effect of penicillin, initial encounter Angioedema, initial encounter Allergy to cephalosporin Other drug allergy documented in this encounter Administered Medications Inactive Administered Medications - up to 3 most recent administrations Medication Order MAR Action Action Date Dose Rate Site amoxicillin (Amoxil) capsule 500 mg 500 mg, Oral, ONCE, 1 dose, On Thu09/22/23 at 1630, Routine, Indication for (Active or Suspected): Other (See comment) / allergy testing Given 09/22/2023 2:23 PM EDT 500 mg benzylpenicilloyl polylysine (Pre-pen) injection 0.02 mL 0.02 mL, Intradermal, ONCE, 1 dose, On Thu09/22/23 at 1630, Pre-pen must be administered by a credentialed provider. A filter needle is required to withdraw dose from ampule., Routine Given 09/22/2023 2:00 PM EDT 0.02 mLs documented in this encounter Care Teams Animal Sitter Relationship Specialty Start Date End Date Génesis Mann MD [address] [place] [address] PCP - General Family Medicine 02/07/19 documented as of this encounter
--- OUTSIDE RECORDS SUMMARY | 2024-02-15 15:06 | XMS_ITS | Encounter Summary ---
Author [facility] [address] Care Team Providers Care Real Estate Transaction Manager Name Role Phone Génesis Mann MD Primary Care Provider [phone] Encounter Details Date Type Department Care Team (Latest Contact Info) Description 09/22/2023 Travel Social History Tobacco Use Types Packs/Day Years [...] on file documented as of this encounter Plan of Treatment Upcoming Encounters Date Type Department Care Team (Late st Contact Info) Description 03/25/2024 9:30 AM EDT Office [place] [address] Inga Jameson MD [facility] [place] [address] documented as of this encounter Visit Diagnoses Not on filedocumented in this encounter Care Teams Real Estate Transaction Manager Relationship Specialty Start Date End Date Génesis Mann MD [address] [place] [address] PCP - General Family Medicine 02/07/19 documented as of this encounter
--- OUTSIDE RECORDS SUMMARY | 2024-02-15 15:06 | XMS_ITS | Clinical Summary ---
Author Organization [facility] [place] [address] Care Team Providers Care Boiling Off Winder Name Role Phone Génesis Mann MD Primary Care Provider [phone] Allergies Active Allergy Reactions Criticality Noted Date Comments Adhesive 09/26/2016 Adhesive Tape Medium 11/08/2014 Other Reaction(s): hives, other Belladonna Alkaloids Rash High 11/08/2014 Cephalexin Rash High 11/06/2014 Other Reaction(s): angioedema Negative skin testing to cefazolin on 09/22/2023. ??Okay to try cefazolin in a monitored setting. Gluten Medium 11/08/2021 Other Reaction(s): other Lactose 12/13/2020 Other Reaction(s): Not available Metronidazole Nausea Only 05/11/2016 Other Reaction(s): Not available Pentazocine Lactate Other (See Comments) 2015 delerium Other Reaction(s): Not available Medications Medication Sig Dispensed Refills Start Date End Date Status levothyroxine (SYNTHROID) 175 mcg Tablet Take 175 mcg by mouth daily. Active losartan (Cozaar) 25 mg Tablet Take 25 mg by mouth daily. Active cholecalciferol, Vitamin D3, (Vitamin D3) 400 unit Tablet Take 400 Units by mouth daily. Active gabapentin (Neurontin) 300 mg Capsule Take 300 mg by mouth 2 times daily. Active omeprazole (PriLOSEC) 40 mg Capsule, Delayed Release(E.C.) Take 40 mg by mouth daily. Active loratadine (Claritin) 10 mg Tablet Take 10 mg by mouth daily. Active ibuprofen (Advil;Motrin) 200 mg Tablet ibuprofen Active cyclobenzaprine (Flexeril) 10 mg Tablet cyclobenzaprine 10 mg tablet Take 1 tablet as needed by oral route. Active methocarbamoL (Robaxin) 500 mg Tablet methocarbamol 500 mg tablet Take 2 tablets as needed by oral route. Active semaglutide (Ozempic) 0.25 mg or 0.5 mg(2 mg/1.5 mL) Pen Injector Inject 0.25 mg subcutaneously once a week. Active DULoxetine DR (Cymbalta) [address] capsule Take 30 mg by mouth 2 times daily. Active Active Problems Patient Care Coordination No te Formatting of this note migh t be different from the original. Please call patient at [phone] - this is her cell which connects to her [employer] hearing aid. Cannot talk on the phone otherwise Problem Noted Date Diagnosed Date Microscopic hematuria 04/02/2020 Hx of total hysterectomy 03/05/2020 Gastroesophageal reflux 03/05/2020 Carcinoma of thyroid 03/05/2020 Metabolic syndrome 03/05/2020 Hypothyroidism 03/05/2020 Depression 03/05/2020 Hx of streptococcal infection 03/05/2020 Radiculopathy of lumbosacral region 03/05/2020 History of Helicobacter pylori infection 020 Hearing loss 03/05/2020 Sleep apnea 03/05/2020 Hiatal hernia 03/05/2020 Encounters Date Type Department Care Team Description 12/29/2023 Telephone [place] [phone] Eula Malloy RN 12/10/2023 8:30 AM EDT TH Visit (TeleHealth) [place] [phone] Inga Jameson MD History of Helicobacter pylori infection 12/09/2023 Travel from Last 3 Months Immunizations Name Administration Dates Next Due Covid-19 Monovalent (Moderna Spikevax) 12yrs+ () 04/15/2021,07/17/2020,06/19/2020 Family History Medical History Relation Comments Pancreatic Cancer Father Breast Cancer Maternal Aunt Breast Cancer Maternal Cousin neg 47 gene anal ysis 2019 Ovarian Cancer Mother Colorectal Cancer Other 1 MGM's brother Stomach Cancer Other 2 MGM's sister, li ruchi to 85 Cancer Other 3 MGM's brother - bone cancer Prostate Cancer Paternal Uncle 1 at 65 from other causes Colorectal Cancer Paternal Uncle 2 Allergic Rhinitis Neg Hx Asthma Neg Hx Relation Status Comments Father Maternal Aunt Maternal Cousin Mother Other 1 Other 2 Other 3 Paternal Uncle 1 Paternal Uncle 2 Social History Tobacco Use Types Packs/Day Years Used Date Smoking Tobacco: Former Cigarettes Q uit: 09/26/1986 Smokeless Tobacco: Never Comments:quit 1986 Alcohol Use Standard Drinks/Week Comments Yes 7 (1 standard drink = 0.6 oz pur e alcohol) Sex and Gender Information Value Date Recorded Sex Assigned at Not on file Gender Identity Not on file Sexual Orientation Not on file Last Filed Vital Signs Vital Sign Reading Time Taken Comments Blood Pressure 132/88 09/22/2023 3:54 PM EDT Pulse 65 09/22/2023 3:54 PM EDT Temperature 35.8 ??C (96.4 ??F) 04/24/2021 1:56 PM ES T Respiratory Rate 16 04/24/2021 1:56 PM EST Oxygen Saturation 98% 09/22/2023 3:54 PM EDT Inhaled Oxygen Concentration - - Weight 96.3 kg (212 lb 6.4 oz) 09/22/2023 1:10 P M EDT Height 175.3 cm (5' 9.02) 04/24/2021 1:56 PM ES T Body Mass Index 31.35 04/24/2021 1:56 PM EST Plan of Treatment Upcoming Encounters Date Type Department Care Team (Late st Contact Info) Description 03/25/2024 9:30 AM EDT Office [place] [phone] Inga Jameson MD [facility] [place] [address] Health Maintenance Due Date Last Done Comments CT Colonography 1958 FIT DNA 1958 FIT 1958 Sigmoidoscopy 1958 HIV screen 1976 Hepatitis C Screening 1976 Lipid Screening 1976 Tdap adult 1977 Tetanus vaccine 1977 HPV test 1988 PAP Smear 1988 Breast Cancer Share Decision Needed 1998 Breast Cancer screening 1998 Diabetes Screening (HgbA1C o r Glucose) 1998 Zoster vaccine (1 of 2) 2008 Advance Directive 2013 Bone Density Scan 2023 Pneumoccocal Vaccine: 65+ (1 of 1 - PCV) 2023 Covid-19 Vaccine (4 - season) 2024 04/15/2021, 07/17/2020, 06/19/2020 Influenza (Flu) vaccine (1 o f 1 - Influenza standard series) 01/31/2024 Colonoscopy 10/24/2025 10/24/2020, 10/24/2020 Colorectal Cancer Screening 10/24/2025 Sigmoidoscopy (10 year) with FIT yearly 10/24/2030 10/24/2020, 10/24/2020 Procedures Procedure Name Priority Date/Time Associated Diagnosis Comments COLONOSCOPY Routine 10/24/2020 10:25 AM EDT from Last 3 Months or Most Recently Relevant to Health Maintenance Results * COLONOSCOPY (10/24/2020 10:25 AM EDT) COLONOSCOPY [facility] Endoscopy Procedure Date: 10/24/2020 10:25 AM ? Patient Name: Marcelina Hanna ? Date of : 1960 ? Age: 60 ? Order #: [id number] ? Instrument Name: [id number] ? Procedure: ? Colonoscopy Indications: ? Screening for colorectal malignant ? neoplasm Providers: ? Inga Jameson MD, Annita Pastor RN, ? Sotero Alejandro Referring : ?Génesis Mann MD Medicines: ? Midazolam 4 mg IV, Fentanyl 200 ? micrograms IV Complications: ? No immediate complications. Procedure: ? Pre-Anesthesia Assessment: ? - Prior to the procedure, a History ? and Physical was performed, and ? patient medications and allergies ? were reviewed. The patient's ? tolerance of previous anesthesia was ? also reviewed. The risks and benefits ? of the procedure and the sedation ? options and risks were discussed with ? the patient. All questions were ? answered, and informed consent was ? obtained. Prior Anticoagulants: The ? patient has taken no previous ? anticoagulant or antiplatelet agents. ? ASA Grade Assessment: II - A patient ? with mild systemic disease. After ? reviewing the risks and benefits, the ? patient was deemed in satisfactory ? condition to undergo the procedure. ? The procedure, indications, benefits, ? risks and alternatives were explained ? to the patient. Specifically ? discussed were potential ? complications including, but not ? limited to, bleeding, perforation, ? infection, missing a cancer, and ? adverse medication reactions. The ? patient was placed in the left ? lateral decubitus position, and a ? digital rectal exam was performed. ? The Colonoscope was inserted in the ? anus and under direct visualization, ? advanced to the cecum, identified by ? appendiceal orifice and ileocecal ? valve. Careful inspection was made as ? the colonoscope was withdrawn. The ? colonoscopy was performed without ? difficulty. The patient tolerated the ? procedure well. The quality of the ? bowel preparation was evaluated using ? the BBPS (Kinsman Bowel Preparation ? Scale) with scores of: Right Colon = ? 3, Transverse Colon = 3 and Left ? Colon = 3 (entire mucosa seen well ? with no residual staining, small ? fragments of stool or opaque liquid). ? The total BBPS score equals 9. ? Withdrawal time was 11 minutes. ? Findings: ? The perianal and digital rectal examinations were ? normal. ? The terminal ileum appeared normal. ? A 3 mm polyp was found in the transverse colon. The ? polyp was sessile. The polyp was removed with a cold ? snare. Resection and retrieval were complete. ? Estimated blood loss: none. ? The descending colon, ascending colon and cecum ? appeared normal. ? A few medium-mouthed diverticula were found in the ? sigmoid colon. ? Internal hemorrhoids were found during retroflexion. ? Moderate Sedation: ? I was present during the intraservice time as ? documented by the sedation RN. Impression: ?- The examined portion of the ileum ? was normal. ? - One 3 mm polyp in the transverse ? colon, removed with a cold snare. ? Resected and retrieved. ? - The descending colon, ascending ? colon and cecum are normal. ? - Diverticulosis in the sigmoid colon. ? - Internal hemorrhoids. Recommendation: ?- Await pathology results. ? - Repeat colonoscopy date to be ? determined after pending pathology ? results are reviewed for surveillance. ? - Return to referring physician. ? Procedure Code(s): ?? --- Professional --- ? 62349, Colonoscopy, flexible; with ? removal of tumor(s), polyp(s), or ? other lesion(s) by snare technique CPT copyright 2019 [employer]. All rights reserved. The codes documented in this report are preliminary and upon protection manager review may be revised to meet current compliance requirements. Attending Participation: ? I personally performed the entire procedure. ? Inga Jameson MD Inga Jameson MD 10/24/2020 11:17:24 AM This report has been signed electronically. Number of Addenda: 0 Note Initiated On: 10/24/2020 10:25 AM PROVATION 10/24/2020 10:2 5 AM EDT Génesis Mann MD GENERAL SURGICAL ORD ERABLES PROVATION from Last 3 Months or Most Recently Relevant to Health Maintenance Care Teams Boiling Off Winder Relationship Specialty Start Date End Date Génesis Mann MD [address] [place] [address] PCP - General Family Medicine 02/07/19
--- OUTSIDE RECORDS SUMMARY | 2024-02-15 15:06 | XMS_ITS | Encounter Summary ---
Author Organization [facility] [place] [address] Care Team Providers Care Printer Maintainer Name Role Phone Génesis Mann MD Primary Care Provider [phone] Encounter Details Date Type Department Care Team (Late st Contact Info) Description 12/29/2023 Telephone [place] [address] Eula Malloy RN Social History Tobacco Use Types Packs/Day Years [...] on file documented as of this encounter Miscellaneous Notes * Telephone Encounter - Eula Malloy RN - 12/29/2023 10:53 AM EDT Pt calls, has finished treatment for H.Pylori. Would like order sent to [facility] for f/u testing. [facility] message sent with instructions. documented in this encounter Plan of Treatment Upcoming Encounters Date Type Department Care Team (Late st Contact Info) Description 03/25/2024 9:30 AM EDT Office [place] [phone] Inga Jameson MD [facility] [place] [address] documented as of this encounter Visit Diagnoses Not on filedocumented in this encounter Care Teams Printer Maintainer Relationship Specialty Start Date End Date Génesis Mann MD [address] [place] [address] PCP - General Family Medicine 02/07/19 documented as of this encounter
--- OUTSIDE RECORDS SUMMARY | 2024-02-15 15:06 | XMS_ITS | Encounter Summary ---
Author Organization [facility] [place] [address] Care Team Providers Care Paper Cup Machine Tender Name Role Phone Génesis Mann MD Primary Care Provider Encounter Details Date Type Department Care Team (Latest Contact Info) Description 12/09/2023 Travel Social History Tobacco Use Types Packs/Day [...] 9:30 AM EDT Office [place] [address] Inga Jameson MD [facility] [place] [address] documented as of this encounter Visit Diagnoses Not on filedocumented in this encounter Care Teams Paper Cup Machine Tender Relationship Specialty Start Date End Date Génesis Mann MD [address] [place] [address] PCP - General Family Medicine 02/07/19 documented as of this encounter
--- OUTSIDE RECORDS SUMMARY | 2024-02-15 15:06 | XMS_ITS | Encounter Summary ---
[place] [address] Care Team Providers Care Mental Health Aide Name Role Phone Génesis Mann MD Primary Care Provider [phone] Encounter Details Date Type Department Care Team (Late st Contact Info) Description 09/22/2023 3:00 PM EDT [place] [phone] Penicillin allergy Social History Tobacco Use Types Packs/Day Years [...] on file documented as of this encounter Progress Notes * Cait Romero RN - 09/22/2023 3:00 PM EDT See alternative encounter dated 09/22/23. documented in this encounter Plan of Treatment Upcoming Encounters Date Type Department Care Team (Late st Contact Info) Description 03/25/2024 9:30 AM EDT Office Visit [place] [phone] Inga Jameson MD [facility] [place] [address] documented as of this encounter Procedures Procedure Name Priority Date/Time Associated Diagnosis Comments ALLERGY SCAN 09/22/2023 12:00 AM EDT documented in this encounter Results * Scan Doc: Allergy (09/22/2023 12:00 AM EDT) Narrative 09/22/2023 12:00 AM EDT Ordered by an unspecified provider. Scanning Provider MEDIA MGR SCAN EXT O RDR/RSLT documented in this encounter Visit Diagnoses Diagnosis Penicillin allergy Other drug allergy documented in this encounter Care Teams Mental Health Aide Relationship Specialty Start Date End Date Génesis Mann MD [address] [place] [address] PCP - General Family Medicine 02/07/19 documented as of this encounter
--- OUTSIDE RECORDS SUMMARY | 2024-02-15 15:06 | XMS_ITS | Encounter Summary ---
Author Organization [facility] [place] [address] Care Team Providers Care School Operations Manager Name Role Phone Génesis Mann MD Primary Care Provider [phone] Encounter Details Date Type Department Care Team (Late st Contact Info) Description 10/08/2023 Telephone [place] [phone] Ruth Teresa Social History Tobacco Use Types Packs/Day Years [...] encounter Miscellaneous Notes * Telephone Encounter - Ruth Teresa - 10/08/2023 10:56 AM EDT Called pt and unable to LVM. Scheduled pt for 's next avail and added to wait list. Also sent pt a [employer] message. documented in this encounter Plan of Treatment Upcoming Encounters Date Type Department Care Team (Late st Contact Info) Description 03/25/2024 9:30 AM EDT Office [place] [phone] Inga Jameson MD [facility] [place] [address] documented as of this encounter Visit Diagnoses Not on filedocumented in this encounter Care Teams School Operations Manager Relationship Specialty Start Date End Date Génesis Mann MD [address] [place] [address] PCP - General Family Medicine 02/07/19 documented as of this encounter
--- OUTSIDE RECORDS SUMMARY | 2024-02-15 15:06 | XMS_ITS | Encounter Summary ---
Author Organization [facility] [place] [address] Care Team Providers Care Armature Straightener Name Role Phone Génesis Mann MD Primary Care Provider [phone] Encounter Details Date Type Department Care Team (Latest Contact Info) Description 12/10/2023 8:30 AM EDT TH Visit (TeleHealth) [place] [address] Inga Jameson MD [facility] [place] [address] History of Helicobacter pylori infection Social History Tobacco Use Types Packs/Day Years [...] as of this encounter Progress Notes * Inga Jameson MD - 12/10/2023 8:30 AM EDT GASTROENTEROLOGY TELEMEDICINE PROGRAM - ESTABLISHED PATIENT VISIT Chief Complaint: Marcelina Hanna is a 63 y.o. patient of Génesis Mann MD here for follow-upof H pylori. Detailed history: 1. GERD -EGD 09/30/16; Schatzki ring, H. Pylori -01/16/17; Improved- continue omeprazole 40mg once daily. 2. NCCP -01/16/17; Improved 3. Dysphagia -09/18/16 barium swallow; moderate sized hatus hernia beneat a non-obstructing lower esophageal ring. Evidence of GERD. Otherwise unremarkable. -01/16/17; less frequent symptoms. Deferred HREM. 4. Bloating/Constipation -Squatty potty/foot stool. Smooth move tea at night. Low-FODMAP diet. -01/16/17; Improved. Continue with senna lax tea. 5. H. Pylori infection 09/30/16 -10/06/16 1. Clarithromycin 500mg twice daily x 14 days, Metronidazole 500mg twice daily x 14 days, Omeprazole 40mg twice daily 30-60 minutes before eating. Ondansetron ODT 4-8mg every 8 hours as needed nausea. Kefir as often as desired. Probiotic twice daily at least two hours apart from antibiotics. H. Pylori stool antigen prior to follow up Appointment. -01/16/17- improved symptoms. H. Pylori stool antigen. Ordered for external lab. - 11/19/2020 - H pylori stool antigen positive - 03/19/2021 gastric biopsy with H pylori, culture with sensitivity to amoxicillin, tetracycline and rifampin, resistant to levofloxacin, clarithromycin, metronidazole - 04/24/2021: seen in ID, allergy testing for penicillin recommended, if negative Bismuth potassiumcitrate 220 mg twice daily + Amoxicillin 1g three times daily + tetracycline 500mg four times daily+ PPI twice daily recommended - 09/22/2023: seen in allergy: skin testing for penicillin negative making the likelihood of an IgE mediated reaction <2% All parties consented to the use of MITUL to document this visit. Subjective History of Present Illness The patient is a 63-year-old female who presents via virtual visit for follow-up of H. pylori. She sought an allergy consultation for the first time in 2021 but was unable to attend the next appointment. Her brother's in 06/2023 from liver failure has exacerbated her stress. She is seeking follow-up after her H. pylori treatment and to address other gastrointestinal issues. Her liver enzymes were previously checked by her primary care physician. She requires Pepto-Bismol for her H. pylori treatment, which she has been unable to complete due to diarrhea in the past. Currently retired, she plans to complete her H. pylori treatment. She is currently taking omeprazole 40 mg once daily and requires a prescription to increase to twice daily. She must discontinue PPI for 2 weeks priorto H. pylori testing to confirm eradication. She started taking Ozempic 0.25 mg 3 weeks ago, which she will increase to 0.5 mg after another week. She is currently taking docusate and Metamucil daily, and is unsure if she should continue these medications. Her alkaline phosphatase has been elevatedher entire life, first noticed in her early 20s. She is unsure why this has not been addressed. Objective Physical exam: No Physical Examination performed during this telemedicine visit Results Laboratory Studies H. pylori was resistant to levofloxacin, clarithromycin, and metronidazole, sensitive to amoxicillin, tetracycline, and rifampin. Alkaline phosphatase was 143. Total bilirubin was 0.3. AST was 35, ALT was 42. Imaging FibroScan showed no fibrosis or scarring. Testing Skin testing was negative for penicillin allergy. Assessment & Plan The patient is a 63-year-old woman here for follow-up of H. pylori. 1. H. pylori. Starting bismuth quadruple therapy for 14 days followed by single dose PPI for an additional 4 weeks. We will repeat H. pylori stool antigen 2 weeks after completing a PPI. Agreed with probiotic while on antibiotic therapy. 2. IBS-C. I will readdress her symptoms in 01/2024. Discussed that her symptoms may significantly change after the bismuth quadruple therapy for H. pylori. 3. Metabolic acidassociated steatohepatitis. She will gather records of lab testing over the last 3 years from her primary care provider. We will repeat FibroScan in 01/2024 when she returns for follow- up visit. Follow-up The patient will follow up in mid 01/2024. I spent 30 minutes face to face with the patient. 30 minutes were spent on counseling and discussion as of the above during this telemedicine visit. The patient was located in [place] at the time of their visit. Approximate time in review of records and documentation 5 minutes. Approximate total time devoted to this single encounter on the day of the encounter: 35 minutes Inga Jameson MD [facility] [place] [address] documented in this encounter Plan of Treatment Upcoming Encounters Date Type Department Care Team (Late st Contact Info) Description 03/25/2024 9:30 AM EDT Office [place] [address] Inga Jameson MD [facility] [place] [address] Scheduled Orders Name Type Priority Associated Diagnoses Orde r Schedule Helicobacter pylori Antigen Stool Microbiology Routine History of Helicobacter pylori infection Expected: 02/08/2024 (Approximate), Expires: 08/09/2024 documented as of this encounter Visit Diagnoses Diagnosis History of Helicobacter pylori infection Personal history of other infectious and parasitic disease documented in this encounter Care Teams Armature Straightener Relationship Specialty Start Date End Date Génesis Mann MD [address] [place] [address] PCP - General Family Medicine 02/07/19 documented as of this encounter
--- OUTSIDE RECORDS SUMMARY | 2024-02-15 15:07 | XMS_ITS | Encounter Summary ---
Author Organization [facility] [place] [address] [place] [address] Care Team Providers Care Contract Negotiation Manager Name Role Phone Génesis Mann MD Primary Care Provider [phone] Reason for Visit * Reason Onset Date Comments Results 04/17/2020 Encounter Details Date Type Department Care Team (Late st Contact Info) Description 04/17/2020 Telephone Hematology [place] [address] [facility] [address] Results Social History Tobacco Use Types Packs/Day Years [...] encounter Miscellaneous Notes * Telephone Encounter - Lindsay Myrick [facility] - 04/17/2020 4:57 PM EST This test result was discussed with the patient by phone. A copy of the test results have been scanned in the medical record and sent to Marcelina. A summary of the results is provided below. Please be advised that [place] law requires that all health care workers respect the confidentiality of this information and not pass it along to other health care providers, insurance companies, or indivi duals without the written permission of the patient. The [facility]amil[facility] Cancer [facility] welcomes any questions about these matters. Our phone number is: [phone]. On 04/05/2020, Marcelina underwent genetic testing for a hereditary predisposition to cancers in eight major organ systems including breast, gynecologic, gastrointestinal, endocrine, genitourinary, skin,brain/nervous system, sarcoma and hematologic. Following are the results of this test. Result: [facility]'s Multi-Cancer Panel showed no mutation was detected. This means that Marcelina does not carrya mutation in the genes detectable by this test. The following 84 genes were evaluated for sequencechanges and exonic deletions/duplications: AIP, ALK, APC, HORACIO, AXIN2, BAP1, BARD1, BLM, BMPR1A, BRCA1, BRCA2, BRIP1, CASR, CDC73, CDH1, CDK4, CDKN1B, CDKN1C, CDKN2A (p14ARF), CDKN2A (f23CKA1U), CEBPA, CHEK2, CTNNA1, DICER1, DIS3L2, EGFR, EPCAM (Deletion/duplication testing only), FH, FLCN, GATA2, GPC3, GREM1 (Promoter region deletion/duplication testing only), HOXB13, HRAS, KIT, MAX, MEN1, MET, NM TF, (c.952G>A,P.Nmt435Oej variant only), MLH1, MSH2, MSH3, MSH6, MUTYH, NBN, NF1, NF2, NTHL1, PALB2, PDGFRA, PHOX2B, PMS2, POLD1, POLE, POT1, DLMXP5A, PTCH1, PTEN, RAD50, RAD51C, RAD51D, RB1, RECQL4, RET, RUNX1, SDHA, SDHAF2, SDHB, SDHC, SDHD, SMAD4, SMARCA4, SMARCB1, SMARCE1, STK11, SUFU, TERC,TERT, TTPE769, TP53, TSC1, TSC2, VHL, WRN, and WT1. A variant of uncertain significance (VUS) was detected in the following genes: MET c.1421C>A (p.Cog713Gym). Mutations in this gene are associated with an increased risk for renal cancer. If an individual inherits a mutation in this gene from BOTH parents it may cause deafness. Marcelina reported that she has hearing loss. Marcelina only has one copy of the MET VUS, her other copy is normal, therefore even if this is eventually found to be a deleterious mutation, it is NOT related to her hearing loss. A brief review of the literature indicates this has been described in just a few families with young children who are deaf. PALB2 c.1814C>T (p.Vor095Ism) . Mutations in this gene are associated with increased risk for breast, pancreatic and ovarian cancers. I reviewed the genetic test report from Marcelina's cousin who had breast cancer and testing with [facility] 47 gene Common Hereditary Cancers Panel in 2019. There isno mention of this PALB2 VUS in her report making it less likely that this could be related to the breast cancer in the family. Interpretation: This test did not identify an underlying genetic cause for the personal and family history of cancer. Possible explanations for this negative test result include: ?? Abdiels cancer and the cancer in her family may be due to non genetic, environmental causes. ?? There could be a mutation in Marcelina's family that Marcelina did not inherit. ?? There could be mutations in other cancer genes not included in this test, or in genes yet to be discovered. ?? There is a very small chance that a pathogenic variant/mutation could be missed due to limitations in the testing. Additional genetic testing for Marcelina is not recommended at this time. It is unclear at this time whether either the MET or PALB2 VUS identified in Marcelina is a cancer-associated mutation or a benign change in the gene with no increased cancer risks. [facility] is continually collecting and analyzing their data, in an effort to reclassify these variants as either cancer-causing mutations or benign changes. It is important to remember that a vast majority of variants of uncertain significance are normal, benign changes in the gene. We will be contacted by the laboratory, in the future, if a reclassification is made and we would then notify Marcelina. It is important that Marcelina's phone number and mailing address stay updated in the [facility] system, in order for us to reach her in the future, should an amended report be issued. Family members should NOT be tested for the variant of uncertain significance identified in Marcelina in order to find out their own cancer risks. Screening Recommendations Based on genetic test results and personal and/or family history, we recommend: Breast cancer screening ?? Be aware of any breast changes and share concerns with primary care provider ?? Annual clinical breast exams ?? Annual mammograms Ovarian cancer risk management Ovarian cancers (and related serous cancers of the fallopian tube and peritoneum) occur in about 1.5% of women in the general population. Women with a 1st degree relative (mother, sister, or daughter) with ovarian cancer have a 2- 3X higher risk than the general population or about a 3-5% chance of developing ovarian cancer. These cancers are very difficult to detect early due to a lack of symptoms. Additionally, there are no reliable means to screen women to detect these cancers early, when there is a good chance for a cure. For this reason, surgical removal of the at-risk organs is an optionfor those at increased risk. This is outlined below: ??? Risk reducing surgery to remove ones ovaries and fallopian tubes, a bilateral salpingo-oophorectomy, is an option. Marcelina had a ROCÍO/BSO at age 42. Colon cancer screening ?? Periodic colonoscopy screening as recommended by Marcelina's nurse wound. Skin cancer screening ?? Dermatologic/skin exams, as recommended by Marcelina's primary home care manager rn or director corporate sales. documented in this encounter Plan of Treatment Upcoming Encounters Date Type Department Care Team (Late st Contact Info) Description 03/25/2024 9:30 AM EDT Office [place] [address] Inga Jameson MD [facility] [place] [address] documented as of this encounter Visit Diagnoses Not on filedocumented in this encounter Care Teams Contract Negotiation Manager Relationship Specialty Start Date End Date Génesis Mann MD [address] [place] [address] PCP - General Family Medicine 02/07/19 documented as of this encounter
--- OUTSIDE RECORDS SUMMARY | 2024-02-15 15:07 | XMS_ITS | Encounter Summary ---
Author Organization [facility] [place] [address] Care Team Providers Care E Commerce Developer Name Role Phone Génesis Mann MD Primary Care Provider [phone] Encounter Details Date Type Department Care Team (Late st Contact Info) Description 03/19/2021 10:00 AM EDT - 03/19/2021 10:30 AM EDT [place] [address] Inga Jameson MD [facility] [place] [address] EGD WITH BIOPSY (WRVU 2.39) Social History Tobacco Use Types Packs/Day Years [...] Sign Reading Time Taken Comments Blood Pressure 149/87 03/19/2021 10:30 AM EDT Pulse 76 03/19/2021 10:30 AM EDT Temperature 36.5 ??C (97.7 ??F) 03/19/2021 9:06 AM ED T Respiratory Rate 13 03/19/2021 10:30 AM EDT Oxygen Saturation 97% 03/19/2021 10:30 AM EDT Inhaled Oxygen Concentration - - Weight 93.9 kg (207 lb) 03/19/2021 9:06 AM EDT Height 175.3 cm (5' 9) 03/19/2021 9:06 AM EDT Body Mass Index 30.57 03/19/2021 9:06 AM EDT documented in this encounter Discharge Instructions * Discharge Instructions* Tiff Herring, RN - 03/19/2021 10:56 AM EDT Upper GI Endoscopy: What to Expect at Home Your Recovery You will be able to go home after your doctor or nurse checks to make sure you are not having any problems. You may have to stay overnight if you had treatment during the test. You may have a sore throat fora day or two after the test. This care sheet gives you a general idea about what to expect after the test. How can you care for yourself at home? Activity Rest when you feel tired. ?? You can do your normal activities when it feels okay to do so. Diet ?? Follow your doctor's directions for eating. ?? Unless your doctor has told you not to, drink plenty of fluids. This helps to replace the fluidsthat were lost during the prep. ?? Do not drink alcohol. Medicines ?? Your doctor will tell you if and when you can restart your medicines. He or she will also give you instructions about taking any new medicines. ?? If you take blood thinners, such as warfarin (Coumadin), clopidogrel (Plavix), or aspirin, be sure to talk to your doctor. He or she will tell you if and when to start taking those medicines again. Make sure that you understand exactly what your doctor wants you to do. ?? If polyps were removed or a biopsy was done during the test, your doctor may tell you not to take aspirin or other anti-inflammatory medicines for a few days. These include ibuprofen (Advil, Motrin) and naproxen (Aleve). ?? If you have a sore throat the day after the procedure, use an bhfi-vnx-cdgjwhr spray to numb your throat. Sucking on throat lozenges and gargling with warm salt water may also help relieve your symptoms. Other instructions ?? For your safety, do not drive or operate machinery until the medicine wears off and you can think clearly. Your doctor may tell you not to drive or operate machinery until the day after your test. ?? Do not sign legal documents or make major decisions until the medicine wears off and you can think clearly. The anesthesia can make it hard for you to fully understand what you are agreeing to. Additional Information for Sedation Patients For patients who received sedation: ?? You may have received medications before and/or during your procedure which effects your judgement and reaction time. ?? Do not drive, operate machinery, drink alcoholic beverages or make important decisions for 24 hours. ?? Be careful on stairs as you may be unsteady on your feet. ?? You may eat a regular diet as tolerated. ?? Do not smoke if you are alone. ?? IV site: Slight redness or tenderness is normal, you can use a warm compress if you would like. If tenderness and/or redness increase or if foul drainage occurs, please contact your Doctor. Please call [phone] before 8pm Mon-Fri with problems, questions or concerns. If you call after 8pm or on weekends, call the Hospital at [phone] and ask to speak to the Jukebox Operator sanitation worker cleaning equipment and the utilities operator will contact that person for you. When should you call for help? Call [phone] anytime you think you may need emergency care. For example, call if: ?? You passed out (lost consciousness). ?? You pass maroon or bloody stools. ?? You have trouble breathing. Call your doctor now or seek immediate medical care if: ?? You have pain that does not get better after you take pain medicine. ?? You are sick to your stomach or cannot drink fluids. ?? You have new or worse belly pain. ?? You have blood in your stools. ?? You have a fever. ?? You cannot pass stools or gas. Watch closely for changes in your health, and be sure to contact your doctor if you have any problems. Where can you learn more? [facility] View your After Visit Summary and more online at [email or web address] If you would like to provide feedback about your hospital experience, please call the Office of Patient and Family Relations at . If you have received this After Visit Summary in error, please immediately return it in person to the department, or notify the [facility] Privacy Office by calling toll free at between the hours of 8AM and 5PM to arrange for our retrieval of the documents at no cost to you. Content Version: 12.2 ?? [id number] [employer]. Care instructions adapted under license by [facility]. If you have questions about a medical condition or this instruction, always ask your healthcare professional. [employer] disclaims any warranty or liability for your use of this information. documented in this encounter Medications at Time of Discharge Medication Sig Dispensed Refills Start Date End Date ibuprofen (Advil;Motrin) 200 mg Tablet ibuprofen cyclobenzaprine (Flexeril) 10 mg Tablet cyclobenzaprine 10 mg tablet Take 1 tablet as needed by oral route. methocarbamoL (Robaxin) 500 mg Tablet methocarbamol 500 mg tablet Take 2 tablets as needed by oral route. levothyroxine (SYNTHROID) 175 mcg Tablet Take 175 mcg by mouth daily. losartan (Cozaar) 25 mg Tablet Take 25 mg by mouth daily. cholecalciferol, Vitamin D3, (Vitamin D3) 400 unit Tablet Take 400 Units by mouth daily. gabapentin (Neurontin) 300 mg Capsule Take 300 mg by mouth 2 times daily. omeprazole (PriLOSEC) 40 mg Capsule, Delayed Release(E.C.) Take 40 mg by mouth daily. loratadine (Claritin) 10 mg Tablet Take 10 mg by mouth daily. OneTouch Verio test strips Strip 07/17/2020 12/10/2023 buPROPion XL (Wellbutrin XL) 150 mg Tablet Extended Release 24 hr Take 150 mg by mouth daily. 01/02/2020 12/10/2023 Victoza 2-Wali 0.6 mg/0.1 mL (18 mg/3 mL) Pen Injector daily. 01/13/2020 12/10/2023 estradiol (ESTRACE) 0.5 mg Tablet Take 0.5 mg by mouth daily. 08/13/2016 08/08/2021 documented as of this encounter H&P Notes * Inga Jameson MD - 03/19/2021 9:54 AM EDT Patient Name: Marcelina Hanna Patient Age: 60 y.o. Birthdate: 1960 Admit date: 03/19/2021 Attending Physician: Inga Jameson MD Gastroenterology and Hepatology Pre-Procedure History and Physical Exam Procedure: EGD: Indication: H pylori Patient Active Problem List Diagnosis Code ??? Hx of total hysterectomy Z90.710 ??? Gastroesophageal reflux K21.9 ??? Carcinoma of thyroid C73 ??? Metabolic syndrome E88.81 ??? Hypothyroidism E03.9 ??? Depression F32.A ??? Hx of streptococcal infection Z86.19 ??? Radiculopathy of lumbosacral region M54.17 ??? History of Helicobacter pylori infection Z86.19 ??? Hearing loss H91.90 ??? Sleep apnea G47.30 ??? Hiatal hernia K44.9 ??? Microscopic hematuria R31.29 EXAM: HEENT: Airway examined, oropharynx clear Mallampati Score: I (soft palate, uvula, fauces, tonsillar pillars visible) LUNGS: Clear to auscultation HEART: Regular rate and rhythm, normal S1, S2 ABDOMEN: Normal bowel sounds, soft, non tender, non distended, A/P Proceed with the planned endoscopic procedure. ASA 2 - Patient with mild systemic disease with no functional limitations Sedation Plan: moderate (conscious sedation) Risks and benefits of the procedure explained to the patient. Consent signed. documented in this encounter Plan of Treatment Upcoming Encounters Date Type Department Care Team (Late st Contact Info) Description 03/25/2024 9:30 AM EDT Office [place] [address] Inga Jameson MD [facility] [place] [address] documented as of this encounter Procedures Procedure Name Priority Date/Time Associated Diagnosis Comments MISCELLANEOUS LAB REQUEST Routine 03/19/2021 10:35 AM EDT [facility] Routine 03/19/2021 1 0:35 AM EDT Upper Gi Endoscopy, Biopsy ([id number]) 03/19/2021 10:14 AM EDT H. pylori infection UPPER GI ENDOSCOPY Routine 03/19/2021 10 :06 AM EDT POCT GLUCOSE Routine 03/19/2021 9:23 AM EDT documented in this encounter Results * (ABNORMAL) [facility] (03/19/2021 10:35 AM EDT) [facility] Test ? Result ?Flag ??Unit ??RefValue Helicobacter pylori Culture + Susc ? SEE COMMENTS ? @ ?SOURCE: GASTRIC BIOPSY, gastric biopsies in sterile saline ?HELICOBACTER PYLORI CULTURE + SUSC ? FINAL ?HELICOBACTER PYLORI ??Isolated ?Organism ? HELICOBACTER PYLORI ?Antibiotic ?CAROL (mcg/mL) ??Interpretation ?Amoxicillin ?<=0.008 ? S ?Levofloxacin ?>1 ? R ?Clarithromycin ?>0.5 ? R ?Metronidazole ? 64 ? R ?Tetracycline ? 1 ? S ?Rifampin ? 1 ? S ?Rifampin: Rifampin should not be used as monotherapy ?S=SUSCEPTIBLE ??I=INTERMEDIATE ??R=RESISTANT ?NS=NONSUSCEPTI BLE ??SDD=SUSCEPTIBL E DOSE DEPENDENT ?Test Performed by: ?[facility] ?[address] [place] [address] ?Surveyor Mine: Sharath Holley M.D. Ph.D.; CLIA# [id number] [facility] Other Other / Unknown 03/19/2021 1 0:35 AM EDT 03/19/2021 1:49 PM EDT Narrative Resulting Agency Comment Spec In Lab Inga Jameson MD LAB SEND OUT ORDERAB LES Performing Organization Address [facility] Co de Phone Number [facility] [place] [address] * Miscellaneous Lab request (03/19/2021 10:35 AM EDT) Label Request received in lab. [facility] Other 03/19/2021 10:3 5 AM EDT 03/19/2021 10:45 AM EDT Narrative Resulting Agency Comment Spec In Lab Inga Jameson MD LAB SEND OUT ORDERAB LES Performing Organization Address [facility] de Phone Number [facility] [place] [address] * UPPER GI ENDOSCOPY (03/19/2021 10:06 AM EDT) UPPER GI ENDOSCOPY [facility] Endoscopy Procedure Date: 03/19/2021 10:06 AM ? Patient Name: Marcelina Hanna ? Date of : 1960 ? Age: 60 ? Order #: [id number] ? Instrument Name: [id number] ? Procedure: ? Upper GI endoscopy Indications: ? Helicobacter pylori Providers: ? Inga Jameson MD, Nomi Leos, ? RN, Husam Kaba MD: ?Génesis Mann MD Medicines: ? Midazolam 3.5 mg IV, Fentanyl 100 ? micrograms IV, Benzocaine spray Complications: ? No immediate complications. Procedure: ? [...] and ? adverse medication reactions. The ? Endoscope was introduced through the ? mouth, and advanced to the second ? part of duodenum. The patient ? tolerated the procedure well. The ? upper GI endoscopy was accomplished ? without difficulty. The patient ? tolerated the procedure well. ? Findings: ? Esophagogastric landmarks were identified: the Z-line ? was found at 36 cm, the upper extent of the gastric ? folds was found at 37 cm and the site of hiatal ? narrowing was found at 38 cm from the incisors. ? The examined esophagus was normal. ? A 2 cm hiatal hernia was present. ? The entire examined stomach was normal. Biopsies were ? taken with a cold forceps for Helicobacter pylori ? cultures. Estimated blood loss: none. ? The examined duodenum was normal. ? Moderate Sedation: ? I was present during the intraservice time as ? documented by the sedation RN. Impression: ?- Esophagogastric landmarks ? identified. ? - Normal esophagus. ? - 2 cm hiatal hernia. ? - Normal stomach. Biopsied. ? - Normal examined duodenum. Recommendation: ?- Await pathology results. ? - Return to referring physician. ? Attending Participation: ? I personally performed the entire procedure. ? Inga Jameson MD Inga Jameson MD 03/19/2021 10:34:30 AM This report has been signed electronically. Number of Addenda: 0 Note Initiated On: 03/19/2021 10:06 AM PROVATION 03/19/2021 10:0 6 AM EDT Génesis Mann MD GENERAL SURGICAL ORD ERABLES PROVATION * POCT Glucose (03/19/2021 9:23 AM EDT) Glucose, POC 114 65 - 199 mg/dL [facility] Comment: Supplemental ranges: <140 mg/dL before meals <180 mg/dL all other times of the day Blood 03/19/2021 9:23 AM EDT 03/18/2021 12:00 PM EDT Inga Jameson MD POINT OF CARE TEST O RDERABLES [facility] [place] [address] documented in this encounter Visit Diagnoses Diagnosis H. pylori infection Helicobacter pylori (H. pylori) documented in this encounter Administered Medications Inactive Administered Medications - up to 3 most recent administrations Medication Order MAR Action Action Date Dose Rate Site benzocaine (Hurricane One) 20% spray (restricted to rosangela-procedural use) ONCE PRN, Starting on Thu03/19/21 at 1017, Until Thu03/19/21 at 1406, Intra-Operative (Intra-Procedure) Given 03/19/2021 10:17 AM EDT 1 spray fentaNYL (pf) (50 mcg/mL) multi-dose injection ONCE PRN, Starting on Thu03/19/21 at 1016, Until Thu03/19/21 at 1406, Intra-Operative (Intra-Procedure), Routine Given 03/19/2021 10:21 AM EDT 25 mcg Given 03/19/2021 10:19 AM EDT 25 mcg Given 03/19/2021 10:16 AM EDT 50 mcg lactated ringers infusion 100 mL/hr, Intravenous, CONTINUOUS, Starting on Thu03/19/21 at 0930, Until Thu03/19/21 at 1058, Endoscopy (Day of Procedure) New Bag 03/19/2021 9:27 AM EDT 100 mL/hr 100 mL/hr midazolam (pf) (Versed) (1 mg/mL) multi-dose injection ONCE PRN, Starting on Thu03/19/21 at 1016, Until Thu03/19/21 at 1406, Intra-Operative (Intra-Procedure), Routine Given 03/19/2021 10:24 AM EDT 0.5 mg Given 03/19/2021 10:21 AM EDT 1 mg Given 03/19/2021 10:19 AM EDT 1 mg documented in this encounter Active and Recently Administered Medications Times are shown in EDT. Continuous Medication Order 03/17/2021 03/18/2021 03/19/2021 lactated ringers infusion (CANCELED) 100 mL/hr, Intravenous, CONTINUOUS, Starting on Thu03/19/21 at 0930, Until Thu03/19/21 at 1058, Endoscopy (Day of Procedure) 0927 ([facility] ider: Jessica Cedeno RN) PRN Medication Order 03/17/2021 03/18/2021 03/19/2021 benzocaine (Hurricane One) 20% spray (restricted to rosangela-procedural use) (CANCELED) ONCE PRN, Starting on Thu03/19/21 at 1017, Until Thu03/19/21 at 1406, Intra-Operative (Intra-Procedure) 1017 (Given - Provid er: Nomi Leos RN) fentaNYL (pf) (50 mcg/mL) multi-dose injection (CANCELED) ONCE PRN, Starting on Thu03/19/21 at 1016, Until Thu03/19/21 at 1406, Intra-Operative (Intra-Procedure), Routine 1016 (Given - Provid er: Nomi Leos RN)1019 (Given - Provider: Nomi Leos RN)1021 (Given - Provider: Nomi Leos RN) midazolam (pf) (Versed) (1 mg/mL) multi-dose injection (CANCELED) ONCE PRN, Starting on Thu03/19/21 at 1016, Until Thu03/19/21 at 1406, Intra-Operative (Intra-Procedure), Routine 1016 (Given - Provid er: Nomi Leos RN)1019 (Given - Provider: Nomi Leos RN)1021 (Given - Provider: Nomi Leos RN)1024 (Given - Provider: Nomi Leos RN) documented in this encounter Care Teams E Commerce Developer Relationship Specialty Start Date End Date Berrian, Génesis M, MD [address] [place] [address] PCP - General Family Medicine 02/07/19 documented as of this encounter
--- OUTSIDE RECORDS SUMMARY | 2024-02-15 15:07 | XMS_ITS | Encounter Summary ---
[place] [address] Care Team Providers Care Burn Nurse Name Role Phone Génesis Mann MD Primary Care Provider [phone] Reason for Referral * Allergy Testing (Routine) - Closed Specialty Diagnoses / Procedures Referred By Contac t Referred To Contact Allergy Diagnoses Encounter for allergy testing Génesis Mann MD [address] [place] [address] [facility] [address] [place] [address] Referral ID Status Reason Start Date Expiration Date V isits Requested Visits Authorized [id number] Closed Consult, Test & Treat PCP Updated and/or Approved 04/14/2022 04/14/2023 12 12 Encounter Details Date Type Department Care Team (Latest Contact Info) Description 04/14/2022 Transcribe Orders eDH Incoming Referrals [phone] Génesis Mann MD [address] [place] [address] Encounter for allergy testing Social History Tobacco Use Types Packs/Day Years [...] 9:30 AM EDT Office [place] [address] Inga Jameson MD [facility] [place] [address] Scheduled Referrals Name Type Priority Associated Diagnoses Orde r Schedule Referral to Allergy Outpatient Referral Routine Encounter for allergy testing Ordered: 04/14/2022 documented as of this encounter Visit Diagnoses Diagnosis Encounter for allergy testing Diagnostic skin and sensitization tests documented in this encounter Care Teams Burn Nurse Relationship Specialty Start Date End Date Génesis Mann MD [address] [place] [address] PCP - General Family Medicine 02/07/19 documented as of this encounter
--- OUTSIDE RECORDS SUMMARY | 2024-02-15 15:07 | XMS_ITS | Encounter Summary ---
Author Organization [facility] [place] [address] Care Team Providers Care Insurance Business Analyst Name Role Phone Génesis Mann MD Primary Care Provider [phone] Encounter Details Date Type Department Care Team (Late st Contact Info) Description 02/28/2021 Telephone [place] [address] Phylicia Tyler Social History Tobacco Use Types Packs/Day Years [...] encounter Miscellaneous Notes * Telephone Encounter - Phylicia Tyler - 02/28/2021 8:53 AM EDT Called patient to set up upper endoscopy on a Thursday with Dr. Jameson. [place] of the [place] and asked to have a call back on ThursdayMar 04. documented in this encounter Plan of Treatment Upcoming Encounters Date Type Department Care Team (Late st Contact Info) Description 03/25/2024 9:30 AM EDT Office [place] [address] Inga Jameson MD [facility] [place] [address] documented as of this encounter Visit Diagnoses Not on filedocumented in this encounter Care Teams Insurance Business Analyst Relationship Specialty Start Date End Date Génesis Mann MD [address] [place] [address] PCP - General Family Medicine 02/07/19 documented as of this encounter
--- OUTSIDE RECORDS SUMMARY | 2024-02-15 15:07 | XMS_ITS | Encounter Summary ---
Author Organization [facility] [place] [address] Care Team Providers Care Ski Technician Name Role Phone Génesis Mann MD Primary Care Provider [phone] Encounter Details Date Type Department Care Team (Late st Contact Info) Description 10/24/2020 Orders [place] [phone] Inga Jameson MD [facility] [place] [address] H. pylori infection Social History Tobacco Use Types [...] 9:30 AM EDT Office [place] [phone] Inga Jameson MD [facility] [place] [address] documented as of this encounter Visit Diagnoses Diagnosis H. pylori infection Helicobacter pylori (H. pylori) documented in this encounter Care Teams Ski Technician Relationship Specialty Start Date End Date Berrian, Génesis M, MD [address] [place] [address] PCP - General Family Medicine 02/07/19 documented as of this encounter
--- OUTSIDE RECORDS SUMMARY | 2024-02-15 15:07 | XMS_ITS | Encounter Summary ---
Author Organization [facility] [place] [address] Care Team Providers Care Metal Coater Name Role Phone Génesis Mann MD Primary Care Provider [phone] Encounter Details Date Type Department Care Team (Latest Contact Info) Description 10/24/2020 9:11 AM EDT - 10/24/2020 12:02 PM EDT Hospital Encounter [place] [address] Inga Jameson MD [facility] [place] [address] Discharge Disposition: Home Social History Tobacco Use Types Packs/Day Years [...] Sign Reading Time Taken Comments Blood Pressure 109/71 10/24/2020 11:40 AM EDT Pulse 75 10/24/2020 11:17 AM EDT Temperature 36.6 ??C (97.9 ??F) 10/24/2020 10:04 AM E DT Respiratory Rate 18 10/24/2020 11:40 AM EDT Oxygen Saturation 94% 10/24/2020 11:40 AM EDT Inhaled Oxygen Concentration - - Weight 98 kg (216 lb) 10/24/2020 10:04 AM EDT Height 175.3 cm (5' 9) 10/24/2020 10:04 AM EDT Body Mass Index 31.9 10/24/2020 10:04 AM EDT documented in this encounter Discharge Instructions * Discharge Instructions* Tiff Herring, RN - 10/24/2020 11:19 AM EDT Colonoscopy and polyp removal What to expect after the procedure You may feel a little more gassy or bloated than usual, this is normal. You should expect the return of normal bowel function in the next 2 to 3 days. Because some polyps were removed, you may see a little blood with the next few bowel movements, this should be a small amount ( less than a few tablespoons) and will resolve on it's own. ACTIVITY Because of the sedation that you received Your judgement and reaction time are effected ?? Go home and rest for the remainder for the day. You may resume your normal activities tomorrow ?? Change from one position to the next slowly because you may lose your balance unexpectedly. ?? Be careful on stairs, as you may be unsteady. FOR THE NEXT 24 HRS ?? DO NOT DRIVE OR OPERATE MACHINERY ?? DO NOT DRINK ALCOHOLIC BEVERAGES ?? DO NOT SIGN LEGAL DOCUMENTS ?? If you are a smoker: DO NOT SMOKE WHILE YOU ARE ALONE Diet ?? Start by eating small portions of foods that ordinarily will not upset your stomach, avoid gas producing foods for the next few days. ?? Be gentle with what you choose to start with ?? Drink plenty of fluids ( unless your doctor has told you not to). Medicines Avoid medicines that influence the way your blood clots for the next week. These would include anti-inflammatory medicine, such as ibuprofen( Advil, Motrin) and naproxen ( Aleve). If you need something for discomfort, Tylenol (Acetaminophen) is safe if used as directed. Your Doctor will tell you when to restart your prescribed blood thinners The IV site-- slight tenderness, or redness is normal, you can use warm compresses if you get concerned. If the tenderness +/or redness increases or foul drainage and a red streak occurs, please contact your PCP immediately. When should you call for help? Call 911 anytime you think you may need emergency care. For example If you pass out (loss of consciousness) If you pass maroon or bloody stools If you have severe belly pain Call your healthcare provider or seek immediate medical care if: Your stools are black or tar like Your stools have streaks of blood that is more pronounced with each BM You have belly pain, or your belly is swollen and firm You vomit You have a fever You are very dizzy Watch closely for changes in your health, and be sure to contact your doctor if you have any problems. Your Doctor will let you know when you will need your next colonoscopy. The results of your test and your risk for colorectal cancer will help your doctor decide how often you need to be checked. Thursday-Thursday Same Day Endo [phone] [id number]-8p Otherwise contact [phone] and ask to speak to the interactive designer construction superintendent Follow up care is a mustafa part of your treatment and safety. Be sure to make and go to all appointments, and call your doctor if you are having problems. Discharge instructions reviewed with patient who expresses understanding documented in this encounter Medications at Time [...] of this encounter H&P Notes * Inga aJmeson MD - 10/24/2020 10:35 AM EDT Patient Name: Marcelina Hanna Patient Age: 60 y.o. Birthdate: 1960 Admit date: 10/24/2020 Attending Physician: Inga Jameson MD Gastroenterology and Hepatology Pre-Procedure History and Physical Exam Procedure: Colonoscopy: Indication: Average risk screening Patient Active Problem List Diagnosis Code ??? Hx of total hysterectomy Z90.710 ??? Gastroesophageal reflux K21.9 ??? Carcinoma of thyroid C73 ??? Metabolic syndrome E88.81 ??? Hypothyroidism E03.9 ??? Depression F32.9 ??? Hx of streptococcal infection Z86.19 ??? Radiculopathy of lumbosacral region M54.17 ??? History of Helicobacter pylori infection Z86.19 ??? Hearing loss H91.90 ??? Sleep apnea G47.30 ??? Hiatal hernia K44.9 ??? Microscopic hematuria R31.29 EXAM: HEENT: Airway examined, oropharynx clear Mallampati Score: II (soft palate, uvula, fauces visible) LUNGS: Clear to auscultation HEART: Regular [...] 9:30 AM EDT Office [place] [address] Inga Jameson MD [facility] [place] [address] documented as of this encounter Procedures Procedure Name Priority Date/Time Associated Diagnosis Comments SPECIMEN TO PATHOLOGY Routine 10/24/2020 11:11 AM EDT SURGICAL PATHOLOGY REPORT Routine 10/24/2020 11:05 AM EDT COLONOSCOPY, DIAGNOSTIC (WRVU 3.26) 10/24/2020 10:38 AM EDT Encounter for screening for malignant neoplasm of colon COLONOSCOPY Routine 10/24/2020 10:25 AM EDT documented in this encounter Results * Specimen to Pathology (10/24/2020 11:11 AM EDT) AP Specimen 10/24/2020 11:1 1 AM EDT 10/24/2020 11:[address] [facility] - 10/24/2020 11:11 AM EDT Specimen requisition ordered. ??Separate Pathology report to follow Inga Jameson MD PATHOLOGY/CYTOLOGY O RDERABLES [facility] [place] [address] * Surgical Pathology Report (10/24/2020 11:05 AM EDT) Final Diagnosis [id number] ? Location: 4T; EA10; A The signing pathologist has (i) examined the relevant preparation(s) for the specimen(s) and (ii) rendered or confirmed the diagnosis(es). . ?Surgical Pathology DIAGNOSIS A - 3mm transverse colon polyp, excision: Tubular adenoma. Electronically signed by: ?Angelica HAMILTON PhD, Colette Verified: ??11/01/2020 10:49 ??Pathologist Performed at: ??-[facility] Dept. of Pathology, [place], [place] SPECIMEN(S) SUBMITTED A - 3mm transverse colon polyp, excision (1) CLINICAL INFORMATION Screening colonoscopy SPECIMEN PROCESSING A - Labeled/Fixativ e: 3 mm transverse colon polyp, formalin. Quantity/Size: Two, 0.2 and 0.3 cm. Tissue Description: Soft, san-pink tissues. Sections/Proces sing: Submitted en toto ??in 1 cassette labeled A1. ??ajw 11/01/2020 10:[address] [facility] GI Biopsy 10/24/2020 11:0 5 AM EDT 10/24/2020 11:05 AM EDT Inga Jameson MD PATHOLOGY/CYTOLOGY O RDERABLES [facility] [place] [address] * COLONOSCOPY (10/24/2020 10:25 AM EDT) COLONOSCOPY [facility] Endoscopy Procedure Date: 10/24/2020 10:25 AM ? Patient Name: Marcelina Hanna ? Date of : 1960 ? Age: 60 ? Order #: [id number] ? Instrument Name: [id number] ? Procedure: ? Colonoscopy Indications: ? Screening [...] preparation was evaluated using ? the BBPS (Coden Bowel Preparation ? Scale) with scores of: [...] Procedure Code(s): ?? --- Professional --- ? 06962, Colonoscopy, flexible; with ? removal of tumor(s), polyp(s), or ? other lesion(s) by snare technique CPT copyright 2019 [employer]. All rights reserved. The codes documented in this report are preliminary and upon gas derrick operator review may be revised to meet current compliance requirements. Attending Participation: ? I personally performed the entire procedure. ? Inga Jameson MD Inga Jameson MD 10/24/2020 11:17:24 AM This report has been signed electronically. Number of Addenda: 0 Note Initiated On: 10/24/2020 10:25 AM PROVATION 10/24/2020 10:2 5 AM EDT Génesis Mann MD GENERAL SURGICAL ORD ERABLES [employer]ATION documented in this encounter Visit Diagnoses Not on filedocumented in this encounter Active and Recently Administered Medications Times are shown in EDT. PRN Medication Order 10/22/2020 10/23/2020 10/24/2020 fentaNYL (pf) (50 mcg/mL) multi-dose injection (CANCELED) ONCE PRN, Starting on Thu10/24/20 at 1042, Until Thu10/24/20 at 1402, Intra-Operative (Intra-Procedure), Routine 1042 (Given - Provid er: Annita Pastor RN)1045 (Given - Provider: Annita Pastor, RN)1048 (Given - Provider: Annita Pastor RN)1056 (Given - Provider: Annita Pastor RN) midazolam (pf) (Versed) (1 mg/mL) multi-dose injection (CANCELED) ONCE PRN, Starting on Thu10/24/20 at 1042, Until Thu10/24/20 at 1402, Intra-Operative (Intra-Procedure), Routine 1042 (Given - Provid er: Annita Pastor RN)1045 (Given - Provider: Annita Pastor RN)1048 (Given - Provider: Annita Pastor RN)1056 (Given - Provider: Annita Pastor RN) documented in this encounter Care Teams Metal Coater Relationship Specialty Start Date End Date Génesis Mann MD [address] [place] [address] PCP - General Family Medicine 02/07/19 documented as of this encounter
--- OUTSIDE RECORDS SUMMARY | 2024-02-15 15:07 | XMS_ITS | Encounter Summary ---
[place] [address] Care Team Providers Care Marketing Administrative Assistant Name Role Phone Clive Shi Primary Care Provider [phone] Encounter Details Date Type Department Care Team (Late st Contact Info) Description 10/06/2016 Telephone [place] [id number] Yessy Casillas, SOCK KNITTER [address] [place] [address] Social History Tobacco Use Types Packs/Day Years [...] encounter Miscellaneous Notes * Telephone Encounter - Yessy Casillas, SOCK KNITTER - 10/06/2016 3:07 PM EDT We discussed the following plan for treatment of her H. Pylori infection: 1. Clarithromycin 500mg twice daily x 14 days 2. Metronidazole 500mg twice daily x 14 days 3. Omeprazole 40mg twice daily 30-60 minutes before eating. 4. Ondansetron ODT 4-8mg every 8 hours as needed nausea 5. My use loperamide prn, but has been advised to watch for fever or signs of C. Diff infection. 6. Kefir as often as desired 7. Probiotic twice daily at least two hours apart from antibiotics. 8. H. Pylori stool antigen. Patient will bring in and drop off at the lab on November 28, right before her follow up appointment. 9. Follow up appointment as scheduled. documented in this encounter Plan of Treatment Upcoming Encounters Date Type Department Care Team (Late st Contact Info) Description 03/25/2024 9:30 AM EDT Office [place] [address] Inga Jameson MD [facility] [place] [address] documented as of this encounter Visit Diagnoses Diagnosis H. pylori infection Helicobacter pylori (H. pylori) documented in this encounter Care Teams Marketing Administrative Assistant Relationship Specialty Start Date End Date Clive Shi [address] [place] [address] PCP - General General Internal Medicine 09/10/1602/06 documented as of this encounter
--- OUTSIDE RECORDS SUMMARY | 2024-02-15 15:07 | XMS_ITS | Encounter Summary ---
Author Organization [facility] [place] [address] Care Team Providers Care Valuation Consultant Name Role Phone Génesis Mann MD Primary Care Provider [phone] Encounter Details Date Type Department Care Team (Late st Contact Info) Description 12/31/2020 12:00 PM EDT Office [place] [address] Inga Jameson MD [facility] [place] [address] H. pylori infection; MANTILLA (nonalcoholic steatohepatitis) Social History Tobacco Use Types Packs/Day Years [...] Sign Reading Time Taken Comments Blood Pressure 132/86 12/31/2020 11:25 AM EDT Pulse 82 12/31/2020 11:25 AM EDT Temperature - - Respiratory Rate - - Oxygen Saturation - - Inhaled Oxygen Concentration - - Weight 98.8 kg (217 lb 14.4 oz) 021 11:25 AM EDT Height 175.3 cm (5' 9) 12/31/2020 11:2 5 AM EDT Body Mass Index 32.18 12/31/2020 11:25 AM EDT documented in this encounter Progress Notes * Inga Jameson MD - 12/31/2020 12:00 PM EDT Gastroenterology and Hepatology Follow Up Note Patient: Marcelina Hanna : 1960 Provider: Inga Jameson MD Problem List: 1. GERD -EGD 09/30/16; Schatzki ring, H. [...] 11/19/2020 - H pylori stool antigen positive Interval History: She has been treated for H pylori three times. She has not been able tolerate petobismul as it causes diarrhea for her. Last treatment was in 2017 with clarithromycin, metronidazoleand omeprazole. She is allergic to penicillins (anaphylaxis in the 1970's). She had her first treatment for H pylori in ~1998. She reports the treatments have always avoid penicillins. She has history of non-celiac gluten sensitivity and lactulose intolerance. She reports being on a low-FODMAP diet which has helped. She does alternative between constipation (treated with MirALAX and senna tea) and gets cyclic bloating. She has a history of fatty on on ultrasound in 12/2019. She report normal liver enzymes. She is on metformin and liraglutide. Current Outpatient Medications Medication Sig Dispense Refill ??? ibuprofen (Advil;Motrin) 200 mg Tablet ibuprofen ??? OneTouch Verio test strips Strip ??? cyclobenzaprine (Flexeril) 10 mg Tablet cyclobenzaprine 10 mg tablet Take 1 tablet as needed by oral route. ??? methocarbamoL (Robaxin) 500 mg Tablet methocarbamol 500 mg tablet Take 2 tablets as needed by oral route. ??? levothyroxine (SYNTHROID) 175 mcg Tablet Take 175 mcg by mouth daily. ??? losartan (Cozaar) 25 mg Tablet Take 25 mg by mouth daily. ??? cholecalciferol, Vitamin D3, (Vitamin D3) 400 unit Tablet Take 400 Units by mouth daily. ??? gabapentin (Neurontin) 300 mg Capsule Take 300 mg by mouth 2 times daily. ??? omeprazole (PriLOSEC) 40 mg Capsule, Delayed Release(E.C.) Take 40 mg by mouth daily. ??? loratadine (Claritin) 10 mg Tablet Take 10 mg by mouth daily. ??? buPROPion XL (Wellbutrin XL) 150 mg Tablet Extended Release 24 hr Take 150 mg by mouth daily. ??? Victoza 2-Wali 0.6 mg/0.1 mL (18 mg/3 mL) Pen Injector daily. ??? estradiol (ESTRACE) 0.5 mg Tablet Take 0.5 mg by mouth daily. No current facility-administered medications for this visit. Vitals: 12/31/20 1125 BP: 132/86 BP Location ([facility]): Left arm Patient Position: Sitting BP Cuff Sizes: Large Adult (32-43 cm) Pulse: 82 Weight: 98.8 kg (217 lb 14.4 oz) Height: 175.3 cm (5' 9) Body mass index is 32.18 kg/m??. Exam: Looks well Fibroscan Results: Mean kPa: 6.1 Mean IQR: 16% (goal is <30 %) Success rate: 100% (goal is >60%) Predicted fibrosis stage: F0-1 CAP: 360 Assessment and Plan: #1 H pylori We reviewed that her history of H. pylori suggest clarithromycin resistance. Reviewed the options of either try quadruple therapy with this mass and levofloxacin versus repeating an upper endoscopy with biopsies for H. pylori culture. She would like to undergo upper endoscopy with biopsy for H. pylori culture in January. We will plan on a follow-up visit to discuss options for therapy based on culture results in March 2021. #2 IBS We discussed that her history does sound consistent with irritable bowel syndrome. We will defer any changes in management until after her next round of therapy for H. pylori as we discussed that thecourse of antibiotics may alter her GI symptoms. #3 MANTILLA Her outside ultrasound does show hepatic steatosis. FibroScan today was negative for significant fibrosis. Recommend continual monitoring with her primary care provider with annual CBC and liver enzymes. This will allow for calculation of her FIB-4 score. A repeat FibroScan should be performed if the FIB-4 score is ever greater than 1.3. Inga Jameson MD Section of Gastroenterology & Hepatology [address] [place], [place] [id number] Time spent reviewing records prior to this encounter: 5 minutes Time spent during encounter with patient including counselin minutes Time spent documenting encounter after office visit: 5 minutes Approximate total time devoted to this single encounter on the day of the encounter: 40 minutes This is exclusive of the time spent performing the Fibroscan procedure. Cc: Génesis Mann MD documented in this encounter Procedure Notes * Inga Jameson MD - 12/31/2020 12:00 PM EDTAssociated Order(s): FIBROSCAN Procedure(s): FIBROSCAN Pre-Procedure Diagnose(s): MANTILLA (nonalcoholic steatohepatitis) [facility] Liver Fibrosis Assessment Report Indication: MANTILLA Performed by: Inga Jameson MD Procedure: Vibration Controlled Transient Elastography (VCTE) or Fibroscan [place] Protocol: Patient's identity, procedure and site were verified, confirmatory pause performed. Discussed procedure including risks and potential complications. Questions answered. Patient verbalizes understanding and wishes to proceed with Fibroscan assessment. Patient was placed in the supine position with right arm in maximum abduction to allow optimal exposure of right lateral abdomen. Patient was briefly assessed. Testing was performed in the mid-axillary location. 50Hz Shear Wave pulses were applied and the resulting Shear Wave and Propagation Speed was detected with a 3.5MHz ultrasonic signal, using the Fibroscan probe. Skin to liver capsule distance and liver parenchyma were accessed during the entire examination with the Fibroscan probe. Patient was instructed to breathe normally and abstain from sudden movements during the procedure. At least ten Sheer Waves were produced; individual measurements of each Shear Wave were calculated. Patient tolerated the procedure well with no complications. Fibroscan Results: Median kPa: 6.1 Mean IQR: 16% (goal is <30 %) Number of valid measurements: 12 (at least 10 required) Number of invalid measurements: 0 Predicted fibrosis stage: F0-1 CAP (dB/m): 360 Estimated steatosis grade: 3/3 % hepatocytes affected: >66% Interpretation: Based on this Fibroscan result, history, clinical examination and review of laboratory and radiological data, this patient likely has stage F0-1 liver fibrosis. documented in this encounter Plan of Treatment Upcoming Encounters Date Type Department Care Team (Late st Contact Info) Description 03/25/2024 9:30 AM EDT Office [place] [address] Inga Jameson MD [facility] [address] Scheduled Orders Name Type Priority Associated Diagnoses Orde r Schedule ENDOSCOPY CASE REQUEST: EGD, UPPER GI ENDOSCOPY Procedures Routine H. pylori infection Ordered: 12/31/2020 documented as of this encounter Procedures Procedure Name Priority Date/Time Associated Diagnosis Comments [id number] Routine 12/31/2020 12:00 PM EDT MANTILLA (nonalcoholic steatohepatitis) documented in this encounter Results * [id number] (12/31/2020 12:00 PM EDT) Narrative Inga Jameson MD - 12/31/2020 12:00 PM EDT Inga Jameson MD ? 12/31/2020 12:50 PM [facility] Liver Fibrosis Assessment Report Indication: ?? MANTILLA Performed by: ??Inga Jameson MD Procedure: Vibration Controlled Transient Elastography (VCTE) or Fibroscan [place] Protocol: Patient's identity, procedure and site were verified, confirmatory pause performed. Discussed procedure including risks and potential complications. Questions answered. Patient verbalizes understanding and wishes to proceed with Fibroscan assessment. Patient was placed in the supine position with right arm in maximum abduction to allow optimal exposure of right lateral abdomen. Patient was briefly assessed. Testing was performed in the mid-axillary location. 50Hz Shear Wave pulses were applied and the resulting Shear Wave and Propagation Speed was detected with a 3.5MHz ultrasonic signal, using the Fibroscan probe. Skin to liver capsule distance and liver parenchyma were accessed during the entire examination with the Fibroscan probe. Patient was instructed to breathe normally and abstain from sudden movements during the procedure. At least ten Sheer Waves were produced; individual measurements of each Shear Wave were calculated. Patient tolerated the procedure well with no complications. Fibroscan Results: Median kPa: 6.1 Mean IQR: 16% (goal is <30 %) Number of valid measurements: 12 (at least 10 required) Number of invalid measurements: 0 Predicted fibrosis stage: F0-1 CAP (dB/m): 360 Estimated steatosis grade: 3/3 % hepatocytes affected: >66% Interpretation: Based on this Fibroscan result, history, clinical examination and review of laboratory and radiological data, this patient likely has stage F0-1 liver fibrosis. Inga Jameson MD PROCEDURE/MINOR SURG ICAL ORDERABLES documented in this encounter Visit Diagnoses Diagnosis H. pylori infection Helicobacter pylori (H. pylori) MANTILLA (nonalcoholic steatohepatitis) Other chronic nonalcoholic liver disease documented in this encounter Care Teams Valuation Consultant Relationship Specialty Start Date End Date Génesis Mann MD [address] [place] [address] PCP - General Family Medicine 02/07/19 documented as of this encounter
--- OUTSIDE RECORDS SUMMARY | 2024-02-15 15:07 | XMS_ITS | Encounter Summary ---
[facility] [place] [address] Care Team Providers Care Product Development Engineer Name Role Phone Génesis Mann MD Primary Care Provider [phone] Encounter Details Date Type Department Care Team (Late st Contact Info) Description 01/18/2021 Tele[place] [phone] Kranthi Chambers Social History Tobacco Use Types Packs/Day Years [...] encounter Miscellaneous Notes * Telephone Encounter - Kranthi Chambers - 01/18/2021 8:45 AM EDT Marcelina Hanna [id number] Diagnosis/Indication: biopsy for H pylori culture, please schedule in 01/2021 1. Have you ever had a/an Upper Endoscopy before? Yes: Date 09/30/2016 If yes, did you have any problems with the procedure? No What type of sedation was used: IV Conscious Sedation 2. Do you take any blood thinners or have you been diagnosed with a bleeding disorder that increases your risk of bleeding with procedures? No 3. Do you have a Pacemaker or Defibrillator device? No 4. Are you a diabetic? Yes: Controlled by diet or medication? Both 5. Do you have any Allergies to Eggs, Latex or Medications? Yes: See chart 6. Do you take any Oral Iron Supplements (Including multi-vitamins)? No 7. Do you have a history of three or more abdominal surgeries? Yes 8. Have you had a problem with sedation or anesthesia? No 9. Do you use a c-pap machine or oxygen tank? C-Pap 10. Do you take prescription narcotic pain medications, including suboxone or methodone? No 11. Do you have a preference regarding the gender of your provider? No Preference 12. Is there any other information you would like to us to note for the provider and nursing team who will perform your case? No 13. Say to patient: You must have a responsible democrat who will drive you to your procedure, stay oncampus for the entire duration of your procedure, and drive you home from your procedure? *Please Verify the height and weight, and adjust if height and/or weight have changed* Estimated body mass index is 32.18 kg/m?? as calculated from the following: Height as of 12/31/20: 175.3 cm (5' 9). Weight as of 12/31/20: 98.8 kg (217 lb 14.4 oz). Age:60 y.o. documented in this encounter Plan of Treatment Upcoming Encounters Date Type Department Care Team (Late st Contact Info) Description 03/25/2024 9:30 AM EDT Office [place] [address] Inga Jameson MD [facility] [place] [address] documented as of this encounter Visit Diagnoses Not on filedocumented in this encounter Care Teams Product Development Engineer Relationship Specialty Start Date End Date Génesis Mann MD [address] [place] [address] PCP - General Family Medicine 02/07/19 documented as of this encounter
--- OUTSIDE RECORDS SUMMARY | 2024-02-15 15:07 | XMS_ITS | Encounter Summary ---
Author Organization [facility] [place] [address] Care Team Providers Care Lumber Tying Machine Operator Name Role Phone Génesis Mann MD Primary Care Provider [phone] Encounter Details Date Type Department Care Team (Late st Contact Info) Description 03/30/2020 Notes Only Hematology [place] [address] Yaakov Caballero MD [facility] DR HEMATOLOGY/[place] [address] Social History Tobacco Use Types Packs/Day Years [...] as of this encounter Progress Notes * Yaakov Caballero MD - 03/30/2020 12:29 PM EDT I have reviewed the patient's record and given personal and/or family history of cancer she should be seen by genetic counselor. This is scheduled for next week. documented in this encounter Plan of Treatment Upcoming Encounters Date Type Department Care Team (Late st Contact Info) Description 03/25/2024 9:30 AM EDT Office [place] [address] Inga Jameson MD [facility] [place] [address] documented as of this encounter Visit Diagnoses Not on filedocumented in this encounter Care Teams Lumber Tying Machine Operator Relationship Specialty Start Date End Date Génesis Mann MD [address] [place] [address] PCP - General Family Medicine 02/07/19 documented as of this encounter
--- OUTSIDE RECORDS SUMMARY | 2024-02-15 15:07 | XMS_ITS | Encounter Summary ---
Author Organization [facility] [place] [address] Care Team Providers Care Cut Off Sawyer [employer] Name Role Phone Génesis Mann MD Primary Care Provider Encounter Details Date Type Department Care Team (Latest Contact Info) Description 08/10/2023 Travel Social History Tobacco Use Types Packs/Day [...] 9:30 AM EDT Office [place] [address] Inga Jameson MD [facility] [place] [address] documented as of this encounter Visit Diagnoses Not on filedocumented in this encounter Care Teams Cut [employer] Relationship Specialty Start Date End Date Génesis Mann MD [address] [place] [address] PCP - General Family Medicine 02/07/19 documented as of this encounter
--- OUTSIDE RECORDS SUMMARY | 2024-02-15 15:07 | XMS_ITS | Encounter Summary ---
Author Organization [facility] [place] [address] Care Team Providers Care Electorate Officer Name Role Phone Génesis Mann MD Primary Care Provider [phone] Encounter Details Date Type Department Care Team (Late st Contact Info) Description 07/12/2020 Tele[place] [address] Sammi Palmer Social History Tobacco Use Types Packs/Day Years [...] encounter Miscellaneous Notes * Telephone Encounter - Sammi Palmer - 07/12/2020 11:56 AM EST Marcelina Hanna [id number] Diagnosis/Indication: [place] 1. Have you ever had a/an Colonoscopy before? Yes- [facility] in [place] If yes, did you have any problems with the procedure? No What type of sedation was used: Other: Unknown 2. Do you take any Blood Thinners? No 3. Do you have a Pacemaker or Defibrillator device? No 4. Are you a diabetic? Yes: Controlled by diet or medication? Diet 5. Do you have any Allergies to Eggs, Latex or Medications? Yes: SEE EDH 6. Do you take any Oral Iron Supplements (Including multi-vitamins)? No 7. Do you have a history of three or more abdominal surgeries? No 8. Have you had a problem with sedation or anesthesia? Yes Slow waking up 9. Do you have a c-pap machine or oxygen tank? C-Pap 10. Do you take prescription narcotic pain medications, including suboxone or methodone? No 11. Do you have a preference regarding the gender of your provider? No Preference 12. Is there any other information you would like to give us to aid in scheduling? No 13. Say to patient: You must have a responsible constitution party who will drive you to your procedure, stay oncampus for the entire duration of your procedure, and drive you home from your procedure? *Please Verify the height and weight, and adjust if height and/or weight have changed* Estimated body mass index is 31.31 kg/m?? as calculated from the following: Height as of 03/05/20: 175.3 cm (5' 9). Weight as of 03/05/20: 96.2 kg (212 lb). *Delete if not needed* Height: 5'9 Weight: 212 BMI: 31.3 Age:60 y.o. documented in this encounter Plan of Treatment Upcoming Encounters Date Type Department Care Team (Late st Contact Info) Description 03/25/2024 9:30 AM EDT Office Visit [place] [address] Inga Jameson MD [facility] [place] [address] documented as of this encounter Visit Diagnoses Not on filedocumented in this encounter Care Teams Electorate Officer Relationship Specialty Start Date End Date Génesis Mann MD [address] [place] [address] PCP - General Family Medicine 02/07/19 documented as of this encounter
--- OUTSIDE RECORDS SUMMARY | 2024-02-15 15:07 | XMS_ITS | Encounter Summary ---
Author Organization [facility] [place] [address] Care Team Providers Care Repair Clerk Name Role Phone Génesis Mann MD Primary Care Provider Encounter Details Date Type Department Care Team (Late st Contact Info) Description 01/30/2020 Ancillary Procedure Radiology Library at [facility] [place] [address] Génesis Mann MD [address] [place] [address] Social History Tobacco Use Types Packs/Day Years [...] 9:30 AM EDT Office Visit Gastroenterology at [facility] [place] [phone] Inga Jameson MD [facility] [place] [address] documented as of this encounter Procedures Procedure Name Priority Date/Time Associated Diagnosis Comments FILM LIBRARY STORAGE ONLY ULTRASOUND STUDY Routine 01/30/2020 12:00 AM EDT documented in this encounter Results * Film Library- Storage Only Ultrasound Study (01/30/2020 12:00 AM EDT) Narrative [facility] - 03/01/2020 4:51 PM EDT This exam is auto-finalizing. It's purpose is for storage only. Génesis Mann MD IMG FILM LIBRARY ORD ERABLES Performing Organization Address City/State/[facility] Co de Phone Number [place], [place] documented in this encounter Visit Diagnoses Not on filedocumented in this encounter Care Teams Repair Clerk Relationship Specialty Start Date End Date Génesis Mann MD [address] [place] [address] PCP - General Family Medicine 02/07/19 documented as of this encounter
--- OUTSIDE RECORDS SUMMARY | 2024-02-15 15:07 | XMS_ITS | Encounter Summary ---
Author Organization [facility] [place] [address] Care Team Providers Care Business Assistant Name Role Phone Génesis Mann MD Primary Care Provider [phone] Reason for Visit * Consultation (Routine) - Specialty Diagnoses / Procedures Referred By Contac t Referred To Contact Nephrology Diagnoses Atrophy of kidney (terminal) Génesis Mann MD [address] [place] [address] [facility] [address] [place] [phone] Referral ID Status Reason Start Date Expiration Date V isits Requested Visits Authorized [id number] Consult, Test & Treat [facility] PCP Updated and/or Approved 02/09/2020 02/08/2021 3 3 Encounter Details Date Type Department Care Team (Latest Contact Info) Description 03/05/2020 1:00 PM EDT Office Visit Nephrology [place] [address] William Sharif MD [facility] [place] [address] Abnormal radiologic findings on diagnostic imaging of renal pelvis, ureter, or bladder; Microscopic hematuria Social History Tobacco Use Types Packs/Day Years [...] Sign Reading Time Taken Comments Blood Pressure 136/88 03/05/2020 1:14 PM EDT Pulse 84 03/05/2020 1:14 PM EDT Temperature - - Respiratory Rate - - Oxygen Saturation - - Inhaled Oxygen Concentration - - Weight 96.2 kg (212 lb) 03/05/2020 1:14 PM EDT Height 175.3 cm (5' 9) 03/05/2020 1:14 PM EDT Body Mass Index 31.31 03/05/2020 1:14 PM EDT documented in this encounter Progress Notes * William Sharif MD - 03/05/2020 1:00 PM EDT Hypertension/Nephrology Consultation Marcelina Swan [id number] 1960 ID: [id number] y.o. old female seen at the request of Dr. Mann for evaluation of cortical atrophy. Past Medical History: Patient Active Problem List Diagnosis Code ??? [...] Hiatal hernia K44.9 ??? Microscopic hematuria R31.29 History of Present Illness: Mrs. 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 She has a long historyof GERD, persistent H pylori infection, and gluten sensitivity. Abdominal US was performed in December for elevated LFTs and showed mild bilateral renal cortical atrophy. She has been asymptomatic froma standpoint, with no dysuria or flank pain, but does report a 29 year history of microscopic hematuria. Urologic workup of this years ago was unrevealing. She is unaware of any history of renal dysfunction. She uses prn ibuprofen and has a longstanding history of type 2 DM and peripheral neuropathy. No dysuria, associated symptoms, or modifying factors. DM has been well controlled with a recent A1c of 6.4. A 24 hour urine collection was done in January which showed 156mg protein/d and a creatinine clearance of 104cc/min. Medications: Outpatient Encounter Medications as of 03/05/2020 Medication Sig Dispense Refill ??? levothyroxine (SYNTHROID) 175 mcg Tablet Take [...] Take 150 mg by mouth daily. ??? estradiol (ESTRACE) 0.5 mg Tablet Take 0.5 mg by mouth daily. ??? Victoza 2-Wali 0.6 mg/0.1 mL (18 mg/3 mL) Pen Injector daily. ??? [DISCONTINUED] ondansetron (ZOFRAN-ODT) 4 mg Tablet, Rapid Dissolve Take 1 tablet by mouth every 8 hours as needed for Nausea (dissolve). (Patient not taking: Reported on 01/16/2017) 20 tablet 0 ??? [DISCONTINUED] cyclobenzaprine (FLEXERIL) 10 mg Tablet as needed. ??? [DISCONTINUED] DULoxetine (CYMBALTA) 30 mg Capsule, Delayed Release(E.C.) ??? [DISCONTINUED] gabapentin (NEURONTIN) 300 mg Capsule ??? [DISCONTINUED] ibuprofen (ADVIL;MOTRIN) 800 mg Tablet take 1 tablet by mouth three times a day if needed 0 ??? [DISCONTINUED] SYNTHROID 200 mcg Tablet ??? [DISCONTINUED] metFORMIN (GLUCOPHAGE-XR) 500 mg Tablet Sustained Release 24 hr ??? [DISCONTINUED] omeprazole (PRILOSEC) 40 mg Capsule, Delayed Release(E.C.) No facility-administered encounter medications on file as of 03/05/2020. Allergies / ADRs: Allergies Allergen Reactions ??? Adhesive ??? Belladonna Alkaloids ??? Cephalosporins ??? Penicillins ??? 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 + microscopic hematuria Skin No rashes Allergy No allergies Endocrine No polydipsia/polyuria Neurologic + peripheral neuropathy Musculoskeletal + back pain Lymph No edema Psych No lethargy/confusion Y N All other systems reviewed and negative. Physical Examination: Vitals: 03/05/20 1314 BP: 136/88 Pulse: 84 Weight: 96.2 kg (212 lb) Height: 175.3 cm (5' 9) General: NAD Eye: PERRL, conjunctivae clear ENT: TMs clear Neck: S/NT CV: reg Resp: CTA Abd: S/NT Ext: No edema Skin: Warm/dry Neuro: PRESTON well, EOMI, speech intact Psych: A&O, affect appropriate Labs: See scanned docs; Cr clearance 104cc/min UA (performed by me): SG 1.010, pH 5, 1+ blood, o/w negative dipstick. Urine microscopy shows 3-4 rbc/hpf and occasional squamous epithelial cells Results for MARCELINA SWAN ( ) as of 04/02/2020 20:41 Ref. Range 03/05/2020 16:24 U Protein Ran Latest Ref Range: 0 - 12 mg/dL <6 Prot/Cre Ratio Latest Units: ratio <0.1 U Creatinine Latest Units: mg/dL 48 Renal US viewed personally and discussed with patient: right kidney 12.36cm, left kidney 11.47cm. No hydronephrosis. The kidneys are of normal echotexture. The cortices do appear somewhat thin in places but in others is of normal thickness. The kidneys are not lobulated. A/P: 1. Renal: longstanding microscopic hematuria with normal renal function. Considerations include idiopathic hematuria, mild IgA nephropathy, or thin basement membrane disease. Whatever the cause, the hematuria appears to be following a very benign course. The renal US appears normal to my eye and I s uspect the areas of thin cortex are related to the windows of view. There is borderline proteinuriaon 24 hour collection but undetectable urine protein/Cr ratio. She has never had hypertension to her knowledge, but was started on losartan when her DM was diagnosed. This could theoretically mask early diabetic nephropathy, but her renal function is excellent in any event. - target BP < 140/90 - target A1c < 7 as tolerated - if she develops elevated blood pressure readings, would titrate losartan upward as needed - no indication for further renal imaging at this time - would monitor renal function and urine protein/Cr ratio q 6-12 months - I would be happy to see her in followup if I can be of any assistance, but at this time she exhibits no evidence of renal disease, risk factors are well controlled, and I can add nothing further toher care. Thank you for allowing me to participate in the care of this interesting patient. Please CC to: Génesis Mann MD @[email or web address]@ documented in this encounter Plan of Treatment Upcoming Encounters Date Type Department Care Team (Late st Contact Info) Description 03/25/2024 9:30 AM EDT Office Visit [place] [address] Inga Jameson MD [facility] [place] [address] documented as of this encounter Procedures Procedure Name Priority Date/Time Associated Diagnosis Comments HC CREATININE - NON BLOOD Routine 03/05/2020 4:24 PM EDT Abnormal radiologic findings on diagnostic imaging of renal pelvis, ureter, or bladder documented in this encounter Results * Protein/Creatinine Ratio, urine (03/05/2020 4:24 PM EDT) Creatinine, Urine 48 mg/dL [facility] Protein, Urine <6 0 - 12 mg/dL [facility] Protein / Creatinine Ratio, Urine <0.1 ratio [facility] Urine specimen (specimen) 03/05/2020 4:24 PM EDT 03/05/2020 4:24 PM EDT Narrative Resulting Agency Comment Spec In Lab William Sharif MD URINE ORDERABLES Performing Organization Address City/State/[facility] Co de Phone Number [facility] [place] [address] documented in this encounter Visit Diagnoses Diagnosis Abnormal radiologic findings on diagnostic imaging of renal pelvis, ureter, or bladder Microscopic hematuria documented in this encounter Care Teams Business Assistant Relationship Specialty Start Date End Date Génesis Mann MD [address] [place] [address] PCP - General Family Medicine 02/07/19 documented as of this encounter
--- OUTSIDE RECORDS SUMMARY | 2024-02-15 15:07 | XMS_ITS | Encounter Summary ---
Author Organization [facility] [place] [address] Care Team Providers Care Gastroenterology Technician Name Role Phone Génesis Mann MD Primary Care Provider [phone] Encounter Details Date Type Department Care Team (Late st Contact Info) Description 03/08/2021 Tele[place] [address] Esperanza Kruger Social History Tobacco Use Types Packs/Day Years [...] encounter Miscellaneous Notes * Telephone Encounter - Esperanza Kruger - 03/08/2021 4:10 PM EDT Patient called to cancel her TH follow-up with Dr. Jameson scheduled for 03/12/21. Patient saidthat she is having her EGD done again on 03/19/21 because her H-Pylori biopsy from recent EGD did not get sent to [place]. I offered to reschedule the TH follow-up. Patient declined and asked that we check with Dr. Jameson to see when she should follow-up after her procedure. documented in this encounter Plan of Treatment Upcoming Encounters Date Type Department Care Team (Late st Contact Info) Description 03/25/2024 9:30 AM EDT Office [place] [address] Inga Jameson MD [facility] [place] [address] documented as of this encounter Visit Diagnoses Not on filedocumented in this encounter Care Teams Gastroenterology Technician Relationship Specialty Start Date End Date Génesis Mann MD [address] [place] [address] PCP - General Family Medicine 02/07/19 documented as of this encounter
--- OUTSIDE RECORDS SUMMARY | 2024-02-15 15:07 | XMS_ITS | Encounter Summary ---
Author Organization [facility] [place] [address] Care Team Providers Care [employer] Law Clerk Name Role Phone Génesis Mann MD Primary Care Provider Reason for Visit * Reason Onset Date Comments Results 04/17/2020 Encounter Details Date Type Department Care Team (Late st Contact Info) Description 04/17/2020 Telephone Hematology [place] [address] Lindsay Myrick LGC [facility] HEMATOLOGY/[place] [address] Results Social History Tobacco Use Types Packs/Day [...] Notes * Telephone Encounter - Lindsay Myrick LGC - 04/17/2020 3:40 PM EST Left message asking Marcelina to call me back to go over her genetic test results. documented in this encounter Plan of Treatment Upcoming Encounters Date Type Department Care Team (Late st Contact Info) Description 03/25/2024 9:30 AM EDT Office [place] [address] Inga Jameson MD [facility] [place] [address] documented as of this encounter Visit Diagnoses Not on filedocumented in this encounter Care Teams [employer] Law Clerk Relationship Specialty Start Date End Date Génesis Mann MD [address] [place] [address] PCP - General Family Medicine 02/07/19 documented as of this encounter
--- OUTSIDE RECORDS SUMMARY | 2024-02-15 15:07 | XMS_ITS | Encounter Summary ---
Author Organization [facility] [place] [address] Care Team Providers Care Director Recreation Center Name Role Phone Clive Shi Primary Care Provider [phone] Reason for Visit * Auth/Cert Specialty Diagnoses / Procedures Referred By Contac t Referred To Contact Diagnoses GERD, esophageal ring, hx H. pylori. Dilation and biopsies please. Procedures PRO UPPER GI ENDOSCOPY, DIAGNOSTIC EGD, UPPER GI ENDOSCOPY Referral ID Status Reason Start Date Expiration Date Visits Re quested Visits Authorized [id number] 1 1 Encounter Details Date Type Department Care Team (Late st Contact Info) Description 09/30/2016 10:00 AM EDT - 09/30/2016 11:00 AM EDT [place] [address] Christiano Kidd MD [facility] [place] [address] EGD WITH BIOPSY (WRVU 2.39) Social History [...] Sign Reading Time Taken Comments Blood Pressure 113/78 09/30/2016 11:00 AM EDT Pulse 74 09/30/2016 10:30 AM EDT Temperature - - Respiratory Rate 16 09/30/2016 11:00 AM EDT Oxygen Saturation 96% 09/30/2016 11:00 AM EDT Inhaled Oxygen Concentration - - Weight - - Height - - Body Mass Index - - documented in this encounter Discharge Instructions * Attachments The following attachments cannot be sent through Care Everywhere. * ESOPHAGEAL DILATION: POST-OP (GHANAIAN) documented in this encounter Medications at Time of Discharge Medication Sig Dispensed Refills Start Date End Date cyclobenzaprine (FLEXERIL) 10 mg Tablet as needed. 09/04/201609/2019 DULoxetine (CYMBALTA) 30 mg Capsule, Delayed Release(E.C.) 08/06/2016 03/05/2020 estradiol (ESTRACE) 0.5 mg Tablet Take 0.5 mg by mouth daily. 08/13/2016 08/08/2021 gabapentin (NEURONTIN) 300 mg Capsule 08/13/2016 03/05/2020 ibuprofen (ADVIL;MOTRIN) 800 mg Tablet take 1 tablet by mouth three times a day if needed 0 05/05/2016 03/05/2020 SYNTHROID 200 mcg Tablet 06/05/201609/2019 metFORMIN (GLUCOPHAGE-XR) 500 mg Tablet Sustained Release 24 hr 08/13/2016 03/05/2020 omeprazole (PRILOSEC) 40 mg Capsule, Delayed Release(E.C.) 08/13/2016 03/05/2020 documented as of this encounter H&P Notes * Christiano Kidd MD - 09/30/2016 9:41 AM EDT Gastroenterology and Hepatology Pre-Procedure History and Physical Exam Procedure: EGD: Indication: gerd dysphagia There is no problem list on file for this patient. EXAM: HEENT: Airway examined, oropharynx clear Mallampati Score: II (soft palate, uvula, fauces visible) LUNGS: Clear to auscultation HEART: Regular rate and rhythm, normal S1, S2 ABDOMEN: Normal bowel sounds, soft, non tender, non distended, A/P Proceed with the planned endoscopic procedure. ASA 1 - Normal health patient Sedation Plan: moderate (conscious sedation) Risks and benefits of the procedure explained to the patient. Consent signed. documented in this encounter Plan of Treatment Upcoming Encounters Date Type Department Care Team (Late st Contact Info) Description 03/25/2024 9:30 AM EDT Office [place] [address] Inga Jameson MD [facility] [place] [address] documented as of this encounter Procedures Procedure Name Priority Date/Time Associated Diagnosis Comments SURGICAL PATHOLOGY REPORT Routine 09/30/2016 10:37 AM EDT SPECIMEN TO PATHOLOGY Routine 09/30/2016 10:37 AM EDT SPECIMEN TO PATHOLOGY Routine 09/30/2016 10:37 AM EDT SPECIMEN TO PATHOLOGY Routine 09/30/2016 10:37 AM EDT EGD,WITH DILATION ESOPHAGUS WITH BALLOON,< 30 MM (WRVU 2.67) 09/30/2016 10:05 AM EDT Bloating Esophageal ring Gastroesophageal reflux disease, esophagitis presence not specified EGD WITH BIOPSY (WRVU 2.39) 09/30/2016 10:05 AM EDT Bloating Esophageal ring Gastroesophageal reflux disease, esophagitis presence not specified UPPER GI ENDOSCOPY Routine 09/30/2016 9: 47 AM EDT documented in this encounter Results * Surgical Pathology Report (09/30/2016 10:37 AM EDT) Final Diagnosis [id number] ?Location: 4T; EA09; A The signing pathologist has (i) examined the relevant preparation(s) for the specimen(s) and (ii) rendered or confirmed the diagnosis(es). . ?Surgical Pathology DIAGNOSIS A - Duodenum, ??biopsy: Duodenal mucosa within normal limits, including preserved villous architecture. B - Stomach, ??biopsy: Gastric antral and fundic gland mucosa with H. pylori gastritis. C - Esophagus, ??biopsy: Esophageal squamous mucosa within normal limits. Electronically signed by: ??Mirela Gonsales MD Verified: ??10/01/2016 ?Pathologist CLINICAL INFORMATION Specimen Submitted: A - Bx of the duodenum B - Bs of stomach r/o h pylori C - Bx of esophagus r/o eoE Clinical History: Patient with dyspepsia and dysphagia Clinical Diagnosis: Normal EGD, rule out H. Pylori, rule out EOE SPECIMEN PROCESSING A - Labeled/Fixativ e: Biopsy of duodenum, formalin. Quantity/Size: Five, averaging 0.2 cm. Tissue Description: Soft san tissue. Sections/Proces sing: (T1) B - Labeled/Fixativ e: Biopsy of stomach, formalin. Quantity/Size: Five, 0.2-0.4 cm. Tissue Description: Soft san tissue. Sections/Proces sing: (T1) C - Labeled/Fixativ e: Biopsy of esophagus, formalin. Quantity/Size: Four, 0.3-0.4 cm. Tissue Description: Soft white tissue. Sections/Proces sing: (T1) ??gregorio 10/01/2016 11:16 AM EDT [facility] GI Biopsy 09/30/2016 10:3 7 AM EDT 09/30/2016 10:37 AM EDT GI Biopsy 09/30/2016 10:3 7 AM EDT 09/30/2016 10:37 AM EDT GI Biopsy 09/30/2016 10:3 7 AM EDT 09/30/2016 10:37 AM EDT Christiano Kidd MD PATHOLOGY/CYTOLOGY O TRACIE [facility] [place] [address] * Specimen to Pathology (surgical or derm) (09/30/2016 10:37 AM EDT) AP Specimen 09/30/2016 10:3 7 AM EDT 09/30/2016 10:37 AM EDT Narrative [facility] - 09/30/2016 10:37 AM EDT Specimen requisition ordered. ??Separate Pathology report to follow Christiano Kidd MD PATHOLOGY/CYTOLOGY Tony HODGES Performing Organization Address [facility] [place] [address] * Specimen to Pathology (surgical or derm) (09/30/2016 10:37 AM EDT) AP Specimen 09/30/2016 10:3 7 AM EDT 09/30/2016 10:37 AM EDT Narrative [facility] - 09/30/2016 10:37 AM EDT Specimen requisition ordered. ??Separate Pathology report to follow Christiano Kidd MD PATHOLOGY/CYTOLOGY Tony HODGES Performing Organization Address [facility]/[place] [address] * Specimen to Pathology (surgical or derm) (09/30/2016 10:37 AM EDT) AP Specimen 09/30/2016 10:3 7 AM EDT 09/30/2016 10:37 AM EDT Narrative [facility] - 09/30/2016 10:37 AM EDT Specimen requisition ordered. ??Separate Pathology report to follow Christiano Kidd MD PATHOLOGY/CYTOLOGY Tony HODGES Performing Organization Address [facility] [place] [address] * UPPER GI ENDOSCOPY (09/30/2016 9:47 AM EDT) UPPER GI ENDOSCOPY [facility] Endoscopy ___ Procedure Date: 09/30/2016 9:47 AM ? Patient Name: Marcelina Hnana ? Date of : 1960 ? Age: 56 ? Order #: [id number] ? Instrument Name: [id number] ? ___ Procedure: ? Upper GI endoscopy Indications: ? Epigastric abdominal pain, Dyspepsia, ? Dysphagia, Heartburn, currently on qd ? PPI Providers: ? Christiano Kidd MD, Rosy Orr ? Hilda Bateman, Pulley Maintainer Referring MD: ?Clive Shi, Yessy Tellez ? Sieglinger Medicines: ? Midazolam 5 mg IV, Fentanyl 150 ? micrograms IV Complications: ? No immediate complications. ___ Procedure: ? The procedure, indications, benefits, ? risks and alternatives were explained ? to the patient. Specifically ? discussed were potential ? complications including, but not ? limited to, bleeding, perforation, ? infection, missing a cancer, and ? adverse medication reactions. The ? Endoscope was introduced through the ? mouth, and advanced to the third part ? of duodenum. The patient tolerated ? the procedure well. The upper GI ? endoscopy was accomplished without ? difficulty. The patient tolerated the ? procedure well. ? Findings: ? The examined esophagus was normal. Biopsies were ? taken with a cold forceps for histology to r/o EoE ? A medium-sized hiatal hernia was present from 36-40 ? cm. ? A non-obstructing Schatzki ring (acquired) was found ? at the gastroesophageal junction. A TTS 20 mm balloon ? was fully insufflated across the ring without ? dilation and could move freely across ring indicating ? that ring is wide open and nonobstructive. ? The Z line was normal at 36 cm ? The entire examined stomach was normal. Biopsies were ? taken with a cold forceps for Helicobacter pylori ? testing of both the antrum and fundus. ? The examined duodenum was normal. Biopsies were taken ? with a cold forceps for histology. ? Impression: ?- Normal esophagus. Biopsied. ? - Medium-sized hiatal hernia. ? - Non-obstructing Schatzki ring. ? - Normal stomach. Biopsied. ? - Normal examined duodenum. Biopsied. Recommendation: ?- Await pathology results. ? Attending Participation: ? I personally performed the entire procedure. I was ? present during the intraservice time as documented by ? the sedation RN. ? Christiano Kidd MD 09/30/2016 10:40:54 AM This report has been signed electronically. Number of Addenda: 0 Note Initiated On: 09/30/2016 9:47 AM PROVATION 09/30/2016 9:47 AM EDT Clive [facility] documented in this encounter Visit Diagnoses Diagnosis Bloating Flatulence, eructation, and gas pain Esophageal ring Congenital tracheoesophageal fistula, esophageal atresia and stenosis Gastroesophageal reflux disease, esophagitis presence not specified documented in this encounter Administered Medications Inactive Administered Medications - up to 3 most recent administrations Medication Order MAR Action Action Date Dose Rate Site fentaNYL 50 mcg/mL multi-dose injection ONCE PRN, Starting on Thu09/30/16 at 1014, Until Thu09/30/16 at 1411, Intra-Operative (Intra-Procedure), Routine Given 09/30/2016 10:26 AM EDT 25 mcg Right Arm Given 09/30/2016 10:23 AM EDT 25 mcg R ight Arm Given 09/30/2016 10:20 AM EDT 50 mcg R ight Arm midazolam (PF) (VERSED) 1 mg/mL multi-dose injection ONCE PRN, Starting on Thu09/30/16 at 1014, Until Thu09/30/16 at 1411, Intra-Operative (Intra-Procedure), Routine Given 09/30/2016 10:26 AM EDT 1 mg Righ t Arm Given 09/30/2016 10:23 AM EDT 1 mg R ight Arm Given 09/30/2016 10:20 AM EDT 1 mg R ight Arm documented in this encounter Active and Recently Administered Medications Times are shown in EDT. PRN Medication Order 09/28/2016 09/29/2016 09/30/2016 fentaNYL 50 mcg/mL multi-dose injection (CANCELED) ONCE PRN, Starting on Thu09/30/16 at 1014, Until Thu09/30/16 at 1411, Intra-Operative (Intra-Procedure), Routine 1014 (Given - Provid er: Rosy Bateman RN)1020 (Given - Provider: Rosy Bateman RN)1023 (Given - Provider: Rosy Bateman RN)1026 (Given - Provider: Rosy Bateman RN) midazolam (PF) (VERSED) 1 mg/mL multi-dose injection (CANCELED) ONCE PRN, Starting on Thu09/30/16 at 1014, Until Thu09/30/16 at 1411, Intra-Operative (Intra-Procedure), Routine 1014 (Given - Provid er: Rosy Bateman RN)1020 (Given - Provider: Rosy Bateman RN)1023 (Given - Provider: Rosy Bateman RN)1026 (Given - Provider: Rosy Bateman RN) documented in this encounter Care Teams Director Recreation Center Relationship Specialty Start Date End Date Clive Shi [place] [address] [place] [address] PCP - General General Internal Medicine 09/10/1602/06 documented as of this encounter
--- OUTSIDE RECORDS SUMMARY | 2024-02-15 15:07 | XMS_ITS | Encounter Summary ---
[place] [address] Care Team Providers Care Water Project Engineer Name Role Phone Génesis Mann MD Primary Care Provider [phone] Encounter Details Date Type Department Care Team (Late st Contact Info) Description 12/06/2020 Telephone [place] [phone] Dedra Kruger Social History Tobacco Use Types Packs/Day [...] encounter Miscellaneous Notes * Telephone Encounter - Dedra Kruger - 12/06/2020 4:03 PM EDT Called pt to schedule follow up visit per Dr. Jameson, either in clinic or telehealth. Pt answered but was in the car and asked if she could call back tomorrow to schedule when she has her calendar with her. documented in this encounter Plan of Treatment Upcoming Encounters Date Type Department Care Team (Late st Contact Info) Description 03/25/2024 9:30 AM EDT Office [place] [phone] Inga Jameson MD [facility] [place] [address] documented as of this encounter Visit Diagnoses Not on filedocumented in this encounter Care Teams Water Project Engineer Relationship Specialty Start Date End Date Génesis Mann MD [address] [place] [address] PCP - General Family Medicine 02/07/19 documented as of this encounter
--- OUTSIDE RECORDS SUMMARY | 2024-02-15 15:07 | XMS_ITS | Encounter Summary ---
Author Organization [facility] [place] [address] Care Team Providers Care Securities Analyst Name Role Phone Génesis Mann MD Primary Care Provider Reason for Visit * (Routine) - Closed Specialty Diagnoses / Procedures Referred By Contac t Referred To Contact Radiology Diagnoses Neck mass Procedures Request For 2nd Read CT Neck Génesis Mann MD [address] [place] [address] Referral ID Status Reason Start Date Expiration Date Visits Re quested Visits Authorized [id number] Closed 01/03/2021 01/03/2022 1 1 Encounter Details Date Type Department Care Team (Late st Contact Info) Description 01/03/2021 5:00 PM EDT Ancillary Procedure Radiology [facility] [place] [address] Génesis Mann MD [address] [place], [place] [address] Neck mass Social History Tobacco Use Types Packs/Day Years [...] 9:30 AM EDT Office Visit [place] [address] Inga Jameson MD [facility] [place] [address] documented as of this encounter Procedures Procedure Name Priority Date/Time Associated Diagnosis Comments REQUEST FOR 2ND READ CT NECK Routine 01/03/2021 4:53 PM EDT Neck mass documented in this encounter Results * Request For 2nd Read CT Neck (01/03/2021 4:53 PM EDT) Anatomical Region Laterality Modality Neck SO Impressions 01/03/2021 5:06 PM EDT Soft tissue nodules in the right paratracheal region in the region of prior thyroidectomy. 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 This could represent residual thyroid tissue versus recurrent neoplasm. No pathologically enlarged adenopathy. Thank you for letting us participate in the care of this patient. ??If you are a health care provider and have any questions regarding this report, please contact the number below. ??For patients who have questions please contact the health nurse healthcare manager that requested your imaging first. ? Narrative 01/03/2021 5:06 PM EDT EXAMINATION: REQUEST FOR 2ND READ CT NECK CLINICAL HISTORY: RT SIDED NECK MASS H/O THYROID CA. ? ENLARGED LT PARATID GLAND ON EXAM, SUBJECTIVE FULLNESS LT SIDE OF NECK WITH SOME ASSOCIATED SWALLOWING DIFFICULTY ; Sending Institution [facility]; Date of exam 20201205; I believe a reinterpretation of this exam may alter care of Patient. Yes TECHNIQUE: CT of the neck with contrast performed at [facility] on 12/05/2020 COMPARISON: None FINDINGS: There is no pathologic adenopathy in the neck. Scattered, nonpathologically enlarged nodes are present in the usual locations. No mass identified along the mucosal surfaces of the aerodigestive tract. The thyroid gland is absent. There is some nodularity in the operative bed on the right. Largest pretracheal soft tissue nodule measures approximately 1 cm in maximal size with a separate relatively hyperdense pretracheal nodular component to superior. The parotid glands appear symmetric. There are changes of cervical spondylosis. Procedure Note Yash Kemp MD - 01/03/2021 EXAMINATION: REQUEST FOR 2ND READ CT NECK CLINICAL HISTORY: RT SIDED NECK MASS H/O THYROID CA. ? ENLARGED LT PARATIDGLAND ON EXAM, SUBJECTIVE FULLNESS LT SIDE OF NECK WITH SOME ASSOCIATEDSWALLOWING DIFFICULTY ; Sending Institution [facility]; Date of exam 20201205; I believe a reinterpretation of this exam may alter care ofPatient. Yes TECHNIQUE: CT of the neck with contrast performed at [facility] on 12/05/2020 COMPARISON: None FINDINGS: There is no pathologic adenopathy in the neck. Scattered, nonpathologically enlarged nodes are present in the usual locations. Nomass identified along the mucosal surfaces of the aerodigestive tract. Thethyroid gland is absent. There is some nodularity in the operative bed on theright. Largest pretracheal soft tissue nodule measures approximately 1 cm inmaximal size with a separate relatively hyperdense pretracheal nodular componentto superior. The parotid glands appear symmetric. There are changes ofcervical spondylosis. IMPRESSION Soft tissue nodules in the right paratracheal region in the region ofprior thyroidectomy. Correlation with previous postoperative imaging, andbiochemical evidence of recurrent thyroid neoplasm is suggested. This couldrepresent residual thyroid tissue versus recurrent neoplasm. No pathologicallyenlarged adenopathy. Thank you for letting us participate in the care of this patient. If youare a health care provider and have any questions regarding this report,please contact the number below. For patients who have questions please contactthe health nurse healthcare manager that requested your imaging first. Génesis Mann MD IMG OUTSIDE INTERPRE TATION ORDERABLES documented in this encounter Visit Diagnoses Diagnosis Neck mass Swelling, mass, or lump in head and neck documented in this encounter Care Teams Securities Analyst Relationship Specialty Start Date End Date Génesis Mann MD [address] [place] [address] PCP - General Family Medicine 02/07/19 documented as of this encounter
--- OUTSIDE RECORDS SUMMARY | 2024-02-15 15:07 | XMS_ITS | Encounter Summary ---
Author Organization [facility] [place] [address] Care Team Providers Care Social Work Specialist Name Role Phone Génesis Mann MD Primary Care Provider Encounter Details Date Type Department Care Team (Latest Contact Info) Description 09/21/2023 Travel Social History Tobacco Use Types Packs/Day [...] 9:30 AM EDT Office [place] [address] Inga Jameson MD [facility] [place] [address] documented as of this encounter Visit Diagnoses Not on filedocumented in this encounter Care Teams Social Work Specialist Relationship Specialty Start Date End Date Génesis Mann MD [address] [place] [address] PCP - General Family Medicine 02/07/19 documented as of this encounter
--- OUTSIDE RECORDS SUMMARY | 2024-02-15 15:07 | XMS_ITS | Encounter Summary ---
Author Organization [facility] [place] [address] Care Team Providers Care Home Care Chaplain Name Role Phone Génesis Mann MD Primary Care Provider [phone] Encounter Details Date Type Department Care Team (Late st Contact Info) Description 08/25/2022 Telephone [place] [phone] [facility] [address] Social History Tobacco Use Types Packs/Day Years [...] encounter Miscellaneous Notes * Telephone Encounter - Joselo Gilmore [facility] - 08/25/2022 11:00 AM EDT Marcelina's spouse, Jarvis, called to ask about any potential updates to 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 At this time, [facility] has not issued a reclassification for either the MET or PALB2 VUS findings. 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 [facility] is continually collecting and analyzing their data, [...] and mailing address stay updated in the [facility] system, in order for us to reach her in the future, should an amended report be issued. Family members should NOT be tested for the variant of uncertain significance identified in Marcelina in order to find out their own cancer risks. documented in this encounter Plan of Treatment Upcoming Encounters Date Type Department Care Team (Late st Contact Info) Description 03/25/2024 9:30 AM EDT [place] [address] Inga Jameson MD [facility] [place] [address] documented as of this encounter Visit Diagnoses Not on filedocumented in this encounter Care Teams Home Care Chaplain Relationship Specialty Start Date End Date Génesis Mann MD [address] [place] [address] PCP - General Family Medicine 02/07/19 documented as of this encounter
--- OUTSIDE RECORDS SUMMARY | 2024-02-15 15:07 | XMS_ITS | Encounter Summary ---
Author Organization [facility] [place] [address] Care Team Providers Care Fleet Administrative Assistant Name Role Phone Génesis Mann MD Primary Care Provider [phone] Encounter Details Date Type Department Care Team (Latest Contact Info) Description 03/19/2021 8:55 AM EDT - 03/19/2021 12:04 PM EDT Hospital En[place] [address] Inga Jameson MD [facility] [place] [address] Discharge Disposition: Home Social History Tobacco Use [...] Sign Reading Time Taken Comments Blood Pressure 116/81 03/19/2021 11:10 AM EDT Pulse 65 03/19/2021 10:53 AM EDT Temperature 36.5 ??C (97.7 ??F) 03/19/2021 9:06 AM ED T Respiratory Rate 16 03/19/2021 11:10 AM EDT Oxygen Saturation 95% 03/19/2021 11:10 AM EDT Inhaled Oxygen Concentration - - [...] the day after the procedure, use an ukjq-gdw-dgnjzuz spray to numb your throat. Sucking on [...] occurs, please contact your Doctor. Please call [phone] before 8pm Mon-Fri with problems, questions or concerns. If you call after 8pm or on weekends, call the Hospital at [phone] and ask to speak to the Felled Seam Operator government relations manager and the tractor operator helper will contact that person for you. When [...] any problems. Where can you learn more? [facility] View your After Visit Summary and more online at [email or web address] If you would like to provide feedback about your hospital experience, please call the Office of Patient and Family Relations at . If you have received this After Visit Summary in error, please immediately return it in person to the department, or notify the [facility] Privacy Office by calling toll free at between the hours of 8AM and 5PM to arrange for our retrieval of the documents at no cost to you. Content Version: 12.2 ?? [id number] [facility]. Care instructions adapted under license by [facility]. If you have questions about a medical condition or this instruction, always ask your healthcare professional. [facility] disclaims any warranty or liability for your [...] 9:30 AM EDT Office [place] [address] Inga Jameson MD [facility] [place] [address] documented as of this encounter Procedures Procedure Name Priority Date/Time Associated Diagnosis Comments MISCELLANEOUS LAB REQUEST Routine 03/19/2021 10:35 AM EDT MISC PALMER TEST-PALMER Routine 03/19/2021 1 0:35 AM EDT Upper Gi Endoscopy, Biopsy ([id number]) 03/19/2021 10:14 AM EDT H. pylori infection UPPER GI ENDOSCOPY Routine 03/19/2021 10 :06 AM EDT POCT GLUCOSE Routine 03/19/2021 9:23 AM EDT documented in this encounter Results * (ABNORMAL) [facility] Palmer Test-Palmer (03/19/2021 10:35 AM EDT) [facility] Test ? Result ?Flag ??Unit ??RefValue [...] ??SDD=SUSCEPTIBL E DOSE DEPENDENT ?Test Performed by: ?[facility] ?[address] [id number] ?Shuttle Van Driver: Sharath Holley M.D. Ph.D.; CLIA# [id number]) [facility] Other Other / Unknown 03/19/2021 1 0:35 AM EDT 03/19/2021 1:49 PM EDT Narrative Resulting Agency Comment Spec In Lab Inga Jameson MD LAB SEND OUT ORDERAB LES Performing Organization Address [facility] de Phone Number [facility] [place] [address] * Miscellaneous Lab request (03/19/2021 10:35 AM EDT) Label Request received in lab. [facility] Other 03/19/2021 10:3 5 AM EDT 03/19/2021 10:45 AM EDT Narrative Resulting Agency Comment Spec In Lab Inga Jameson MD LAB SEND OUT ORDERAB LES Performing Organization Address [facility] de Phone Number [facility] [place] [address] * UPPER GI ENDOSCOPY (03/19/2021 10:06 AM EDT) UPPER GI ENDOSCOPY [facility] Procedure Date: 03/19/2021 10:06 AM ? Patient Name: Marcelina Hanna ? Date of : 1960 ? Age: 60 ? Order #: [id number] ? Instrument Name: [facility]-[id number] ? Procedure: ? Upper GI endoscopy Indications: [...] Glucose, POC 114 65 - 199 mg/dL [facility] Comment: Supplemental ranges: <140 mg/dL before meals <180 mg/dL all other times of the day Blood 03/19/2021 9:23 AM EDT 03/18/2021 12:00 PM EDT Inga Jameson MD POINT OF CARE TEST O RDERABLES [facility] [place] [address] documented in this encounter Visit Diagnoses Not on filedocumented in this encounter Administered Medications Inactive Administered Medications - up to 3 most recent administrations Medication Order MAR Action Action Date Dose Rate Site lactated ringers infusion 100 mL/hr, Intravenous, CONTINUOUS, Starting on Thu03/19/21 at 0930, Until Thu03/19/21 at 1058, Endoscopy (Day of Procedure) New Bag 03/19/2021 9:27 AM EDT 100 mL/hr 100 mL/hr documented in this encounter Active and Recently Administered Medications Times are shown in EDT. Continuous Medication Order 03/17/2021 03/18/2021 03/19/2021 lactated ringers infusion (CANCELED) 100 mL/hr, Intravenous, CONTINUOUS, Starting on Thu03/19/21 at 0930, Until Thu03/19/21 at 1058, Endoscopy (Day of Procedure) 0927 (New Bag - Prov ider: Jessica Cedeno RN) PRN Medication Order [...] er: Nomi Leos RN)1019 (Given - Provider: Nmoi Leos RN)1021 (Given - Provider: Nomi Leos RN) midazolam (pf) (Versed) (1 mg/mL) multi-dose injection (CANCELED) ONCE PRN, Starting on Thu03/19/21 at 1016, Until Thu03/19/21 at 1406, Intra-Operative (Intra-Procedure), Routine 1016 (Given - Provid er: Nomi Leos RN)1019 (Given - Provider: Nomi Leos RN)1021 (Given - Provider: Nomi Leos RN)1024 (Given - Provider: Nomi Leos RN) documented in this encounter Care Teams Fleet Administrative Assistant Relationship Specialty Start Date End Date Génesis Mann MD [address] [place] [address] PCP - General Family Medicine 02/07/19 documented as of this encounter
--- OUTSIDE RECORDS SUMMARY | 2024-02-15 15:07 | XMS_ITS | Encounter Summary ---
[place] [address] Care Team Providers Care Research Scientist Name Role Phone Génesis Mann MD Primary Care Provider [phone] Encounter Details Date Type Department Care Team (Late st Contact Info) Description 07/05/2020 [place] [address] Kranthi Chambers Social History Tobacco Use Types [...] * Telephone Encounter - Kranthi Chambers - 07/05/2020 3:45 PM EST Placed outgoing phone call to patient in order to schedule a procedure. Phone Call Outcome: Left voicemail asking for return call. This was the 2nd attempt If the call is returned, it can be handled by: [facility] Endoscopy Wax Pattern Repairer documented in this encounter Plan of Treatment Upcoming Encounters Date Type Department Care Team (Late st Contact Info) Description 03/25/2024 9:30 AM EDT Office [place] [phone] Inga Jameson MD [facility] [place] [address] documented as of this encounter Visit Diagnoses Not on filedocumented in this encounter Care Teams Research Scientist Relationship Specialty Start Date End Date Génesis Mann MD [address] [place] [address] PCP - General Family Medicine 02/07/19 documented as of this encounter
--- OUTSIDE RECORDS SUMMARY | 2024-02-15 15:07 | XMS_ITS | Encounter Summary ---
Author Organization [facility] [place] [address] Care Team Providers Care Suspender Cutter Name Role Phone Génesis Mann MD Primary Care Provider [phone] Encounter Details Date Type Department Care Team (Late st Contact Info) Description 12/05/2020 Ancillary Procedure Radiology Library at [facility] [place] [address] Génesis Mann MD [address] [place] [address] Social History Tobacco Use Types Packs/Day Years [...] 9:30 AM EDT Office Visit Gastroenterology at [facility] [place] [phone] Inga Jameson MD [facility] [place] [address] documented as of this encounter Procedures Procedure Name Priority Date/Time Associated Diagnosis Comments FILM LIBRARY - STORAGE ONLY CT NECK Routine 12/05/2020 12:00 AM EDT documented in this encounter Results * Film Library- Storage Only CT Neck (12/05/2020 12:00 AM EDT) Narrative [facility] - 12/21/2020 9:21 PM EDT This exam is auto-finalizing. It's purpose is for storage only. Génesis Mann MD G FILM LIBRARY ORD ERABLES Performing Organization Address City/State/[facility] Co de Phone Number [place], [place] documented in this encounter Visit Diagnoses Not on filedocumented in this encounter Care Teams Suspender Cutter Relationship Specialty Start Date End Date Génesis Mann MD [address] [place] [address] PCP - General Family Medicine 02/07/19 documented as of this encounter
--- OUTSIDE RECORDS SUMMARY | 2024-02-15 15:07 | XMS_ITS | Encounter Summary ---
Author Organization [facility] [place] [address] Care Team Providers Care Terrazzo Mechanic Helper Name Role Phone Génesis Mann MD Primary Care Provider Encounter Details Date Type Department Care Team (Late st Contact Info) Description 02/15/2021 1:00 PM EDT - 02/15/2021 1:30 PM EDT Surgery [place] [address]on MD [facility] [place] [address] EGD WITH BIOPSY (WRVU 2.39) Social History [...] Sign Reading Time Taken Comments Blood Pressure 148/125 02/15/2021 1:30 PM EDT Pulse 89 02/15/2021 1:30 PM EDT Temperature 36.7 ??C (98.1 ??F) 02/15/2021 12:30 PM E DT Respiratory Rate 25 02/15/2021 1:30 PM EDT Oxygen Saturation 89% 02/15/2021 1:30 PM EDT Inhaled Oxygen Concentration - - Weight 94.3 kg (208 lb) 02/15/2021 12:30 PM EDT Height 175.3 cm (5' 9) 02/15/2021 12:30 PM EDT Body Mass Index 30.72 02/15/2021 12:30 PM EDT documented in this encounter Medications at Time [...] H&P Notes * Inga Jameson MD - 02/15/2021 1:13 PM EDT Patient Name: Marcelina Hanna Patient Age: 60 y.o. Birthdate: 1960 Admit date: 02/15/2021 Attending Physician: Inga Jameson MD Gastroenterology and Hepatology Pre-Procedure History and Physical Exam Procedure: EGD: Indication: f/u H pylori Patient Active Problem List Diagnosis [...] 9:30 AM EDT Office [place] [address]on MD [facility] [place] [address] documented as of this encounter Procedures Procedure Name Priority Date/Time Associated Diagnosis Comments MISCELLANEOUS LAB REQUEST Routine 02/15/2021 1:59 PM EDT SPECIMEN TO PATHOLOGY Routine 02/15/2021 1:37 PM EDT SURGICAL PATHOLOGY REPORT Routine 02/15/2021 1:36 PM EDT Upper Gi Endoscopy, Biopsy ([id number]) 02/15/2021 1:21 PM EDT H. pylori infection UPPER GI ENDOSCOPY Routine 02/15/2021 1: 02 PM EDT documented in this encounter Results * Miscellaneous Lab request (02/15/2021 1:59 PM EDT) Label Request received in lab. [facility] Other 02/15/2021 1:59 PM EDT 02/15/2021 2:02 PM EDT Narrative Resulting Agency Comment Spec In Lab Inga Jameson MD LAB SEND OUT ORDERAB LES Performing Organization Address [facility] Co de Phone Number [facility] [address] * Specimen to Pathology (02/15/2021 1:37 PM EDT) AP Specimen 02/15/2021 1:37 PM EDT 02/15/2021 1:37 PM EDT Narrative [facility] - 02/15/2021 1:37 PM EDT Specimen requisition ordered. ??Separate Pathology report to follow Inga Jameson MD PATHOLOGY/CYTOLOGY O RDERABLES Performing Organization Address [facility] Co de Phone Number [facility] [address] [phone] * Surgical Pathology Report (02/15/2021 1:36 PM EDT) Final Diagnosis [id number] ? Location: 4T; EA08; A The signing pathologist has (i) examined the relevant preparation(s) for the specimen(s) and (ii) rendered or confirmed the diagnosis(es). . ?Surgical Pathology DIAGNOSIS A - Gastric, biopsy (Multiple): - ??Antral-type and body/fundic-type mucosa with H. pylori chronic gastritis (see Note). Note: ??Immunostaining for H. pylori is positive. Electronically signed by: ?Michael Joel MD Verified: ??02/25/2021 16:24 ??Pathologist Performed at: ??-[facility] Dept. of Pathology, [place], [place] ADDITIONAL STUDIES Immunohistochemistry Studies: Formalin-fixed, paraffin-embedded tissue sections are studied using the polymer technique with appropriate positive and negative controls. ?These IHC studies provide the pathologist with adjunctive diagnostic information. Antibody specificity has been verified by testing antibodies on a series of in-house tissues with known immunohistochemical performance characteristics. The clinical interpretation of any antibody positive staining or its absence is evaluated within the context of clinical presentation, morphology, histopathological criteria and other diagnostic tests. Block ? Antibody ?Result (Positive/Negative) A1 ? H. Pylori ?see note SPECIMEN(S) SUBMITTED A - Gastric, biopsy (Multiple) CLINICAL INFORMATION 60-year-old female, history H. pylori SPECIMEN PROCESSING A - Labeled/Fixative: Gastric, formalin. Quantity/Size: Five, ranging 0.4-0.6 cm. Tissue Description: Soft, red-san tissues. Sections/Processing: Submitted en toto ??in 1 cassette labeled A1. ??MLL 02/25/2021 4:24 PM EDT [facility] GI Biopsy 02/15/2021 1:36 PM EDT 02/15/2021 1:36 PM EDT Inga Jameson MD PATHOLOGY/CYTOLOGY O RDERABLES [facility] [place] [address] * UPPER GI ENDOSCOPY (02/15/2021 1:02 PM EDT) UPPER GI ENDOSCOPY [facility] Endoscopy Procedure Date: 02/15/2021 1:02 PM ? Patient Name: Marcelina Hanna ? Date of : 1960 ? Age: 60 ? Order #: [id number] ? Instrument Name: [id number] ? Procedure: ? Upper GI endoscopy Indications: ? Helicobacter pylori Providers: ? Inga Jameson MD, Junaid Narvaez ? VIVIANA Madrigal, Eunice Salcido, ? Chapin Montenegro Referring MD: ?Génesis Mann MD Medicines: ? Midazolam 4 mg IV, Fentanyl 75 ? micrograms IV, Benzocaine spray Complications: ? [...] identified: the Z-line ? was found at 35 cm, the upper extent of the gastric ? folds was found at 36 cm and the site of hiatal ? narrowing was found at 39 cm from the incisors. ? The examined esophagus was normal. ? A large hiatal hernia was present. ? Striped moderately erythematous mucosa was found in ? the gastric antrum. Biopsies were taken with a cold ? forceps for Helicobacter pylori cultures and for ? histology. Estimated blood loss: none. ? The examined duodenum was normal. ? Moderate Sedation: ? I was present during the intraservice time as ? documented by the sedation RN. Impression: ?- Esophagogastric landmarks ? identified. ? - Normal esophagus. ? - Large hiatal hernia. ? - Erythematous mucosa in the antrum. ? Biopsied. ? - Normal examined duodenum. Recommendation: ?- Await pathology results. ? - Return to referring physician. ? Attending Participation: ? I personally performed the entire procedure. ? Inga Jameson MD Inga Jameson MD 02/15/2021 1:43:55 PM This report has been signed electronically. Number of Addenda: 0 Note Initiated On: 02/15/2021 1:02 PM PROVATION 02/15/2021 1:02 PM EDT Génesis Mann MD GENERAL SURGICAL ORD ERABLES PROVATION documented in this encounter Visit Diagnoses Diagnosis H. pylori infection Helicobacter pylori (H. pylori) documented in this encounter Administered Medications Inactive Administered Medications - up to 3 most recent administrations Medication Order MAR Action Action Date Dose Rate Site benzocaine (Hurricane One) 20% spray (restricted to rosangela-procedural use) ONCE PRN, Starting on Thu02/15/21 at 1326, Until Thu02/15/21 at 1654, Intra-Operative (Intra-Procedure) Given 02/15/2021 1:26 PM EDT 1 spray fentaNYL (pf) (50 mcg/mL) multi-dose injection ONCE PRN, Starting on Thu02/15/21 at 1324, Until Thu02/15/21 at 1654, Intra-Operative (Intra-Procedure), Routine Given 02/15/2021 1:30 PM EDT 25 mcg Given 02/15/2021 1:24 PM EDT 50 mcg lactated ringers infusion 100 mL/hr, Intravenous, CONTINUOUS, Starting on Thu02/15/21 at 1245, Until Thu02/15/21 at 1654, Endoscopy (Day of Procedure) New Bag 02/15/2021 12:52 PM EDT 100 mL/hr 100 mL/hr midazolam (pf) (Versed) (1 mg/mL) multi-dose injection ONCE PRN, Starting on Thu02/15/21 at 1324, Until Thu02/15/21 at 1654, Intra-Operative (Intra-Procedure), Routine Given 02/15/2021 1:31 PM EDT 1 mg Given 02/15/2021 1:27 PM EDT 1 mg Given 02/15/2021 1:24 PM EDT 2 mg documented in this encounter Active and Recently Administered Medications Times are shown in EDT. Continuous Medication Order 02/13/2021 02/14/2021 02/15/2021 lactated ringers infusion 100 mL/hr, Intravenous, CONTINUOUS, Starting on Thu02/15/21 at 1245, Until Thu02/15/21 at 1654, Endoscopy (Day of Procedure) 1252 (New Bag - Prov ider: Sindy Kapadia RN) PRN Medication Order 02/13/2021 02/14/2021 02/15/2021 benzocaine (Hurricane One) 20% spray (restricted to rosangela-procedural use) (CANCELED) ONCE PRN, Starting on Thu02/15/21 at 1326, Until Thu02/15/21 at 1654, Intra-Operative (Intra-Procedure) 1326 (Given - Provid er: Eunice Salcido RN) fentaNYL (pf) (50 mcg/mL) multi-dose injection (CANCELED) ONCE PRN, Starting on Thu02/15/21 at 1324, Until Thu02/15/21 at 1654, Intra-Operative (Intra-Procedure), Routine 1324 (Given - Provid er: Eunice Salcido RN)1330 (Given - Provider: Eunice Salcido RN) midazolam (pf) (Versed) (1 mg/mL) multi-dose injection (CANCELED) ONCE PRN, Starting on Thu02/15/21 at 1324, Until Thu02/15/21 at 1654, Intra-Operative (Intra-Procedure), Routine 1324 (Given - Provid er: Eunice Salcido RN)1327 (Given - Provider: Eunice Salcido, RN)1331 (Given - Provider: Eunice Salcido, RN) documented in this encounter Care Teams Terrazzo Mechanic Helper Relationship Specialty Start Date End Date Génesis Mann MD [address] [place] [address] PCP - General Family Medicine 02/07/19 documented as of this encounter
--- OUTSIDE RECORDS SUMMARY | 2024-02-15 15:07 | XMS_ITS | Encounter Summary ---
Author Organization [facility] [place] [address] Care Team Providers Care Literacy Education Professor Name Role Phone Génesis Mann MD Primary Care Provider [phone] Encounter Details Date Type Department Care Team (Latest Contact Info) Description 02/15/2021 12:11 PM EDT - 02/15/2021 2:54 PM EDT Hospital En[place] [address] Inga Jameson MD [facility] [place] [address] Discharge Disposition: Home Social History Tobacco Use [...] Sign Reading Time Taken Comments Blood Pressure 131/84 02/15/2021 1:48 PM EDT Pulse 90 02/15/2021 1:35 PM EDT Temperature 36.7 ??C (98.1 ??F) 02/15/2021 12:30 PM E DT Respiratory Rate 16 02/15/2021 1:48 PM EDT Oxygen Saturation 93% 02/15/2021 1:48 PM EDT Inhaled Oxygen Concentration - - [...] 9:30 AM EDT Office [place] [address] Inga Jameson MD [facility] [place] [address] documented as of this encounter Procedures Procedure Name Priority Date/Time Associated Diagnosis Comments MISCELLANEOUS LAB REQUEST Routine 02/15/2021 1:59 PM EDT SPECIMEN TO PATHOLOGY Routine 02/15/2021 1:37 PM EDT SURGICAL PATHOLOGY REPORT Routine 02/15/2021 1:36 PM EDT Upper Gi Endoscopy, Biopsy ([id number]) 02/15/2021 1:21 PM EDT H. pylori infection UPPER GI ENDOSCOPY Routine 02/15/2021 1: 02 PM EDT documented in this encounter Results * Miscellaneous Lab request (02/15/2021 1:59 PM EDT) Label Request received in lab. [facility] Other 02/15/2021 1:59 PM EDT 02/15/2021 2:02 PM EDT Narrative Resulting Agency Comment Spec In Lab Inga Jameson MD LAB SEND OUT ORDERAB LES Performing Organization Address [facility]/ZIP Co de Phone Number [facility] [place] [address] * Specimen to Pathology (02/15/2021 1:37 PM EDT) AP Specimen 02/15/2021 1:37 PM EDT 02/15/2021 1:37 PM EDT Narrative [facility] - 02/15/2021 1:37 PM EDT Specimen requisition ordered. ??Separate Pathology report to follow Inga Jameson MD PATHOLOGY/CYTOLOGY O RDERABLES Performing Organization Address [facility] Co de Phone Number [facility] [place] [address] * Surgical Pathology Report (02/15/2021 1:36 PM EDT) Final Diagnosis [id number] ? Location: 4T; EA08; A The signing [...] MD Verified: ??02/25/2021 16:24 ??Pathologist Performed at: ??-[facility] Dept. of Pathology, [place], [place] ADDITIONAL STUDIES Immunohistochemistry Studies: Formalin-fixed, paraffin-embedded [...] labeled A1. ??MLL 02/25/2021 4:24 PM EDT [facility] GI Biopsy 02/15/2021 1:36 PM EDT 02/15/2021 1:36 PM EDT Inga Jameson MD PATHOLOGY/CYTOLOGY O RDERABLES [facility] [place] [place] [address] * UPPER GI ENDOSCOPY (02/15/2021 1:02 PM EDT) UPPER GI ENDOSCOPY [facility] Endoscopy Procedure Date: 02/15/2021 1:02 PM ? Patient Name: Marcelina Hanna ? Date of : 1960 ? Age: 60 ? Order #: [id number] ? Instrument Name: [id number] ? Procedure: ? Upper GI endoscopy Indications: ? Helicobacter pylori Providers: ? Inga Jameson MD, Junaid Narvaez ? VIVIANA Madrigal, Eunice Salcido, ? Chapin Kaba MD: ?Génesis Mann MD Medicines: ? [...] 12:52 PM EDT 100 mL/hr 100 mL/hr documented in [...] RN) documented in this encounter Care Teams Literacy Education Professor Relationship Specialty Start Date End Date Génesis Mann MD [address] [place] [address] PCP - General Family Medicine 02/07/19 documented as of this encounter
--- OUTSIDE RECORDS SUMMARY | 2024-02-15 15:07 | XMS_ITS | Encounter Summary ---
Author Organization [facility] [place] [address] Care Team Providers Care Yarder Engineer Name Role Phone Génesis Mann MD Primary Care Provider [phone] Encounter Details Date Type Department Care Team (Late st Contact Info) Description 10/24/2020 10:05 AM EDT - 10/24/2020 10:50 AM EDT Surgery [place] [address] Inga Jameson MD [facility] [place] [address] COLONOSCOPY, DIAGNOSTIC (WRVU 3.12) Social History Tobacco Use Types Packs/Day Years [...] Sign Reading Time Taken Comments Blood Pressure 93/62 10/24/2020 10:50 AM EDT Pulse 67 10/24/2020 10:50 AM EDT Temperature 36.6 ??C (97.9 ??F) 10/24/2020 10:04 AM E DT Respiratory Rate 11 10/24/2020 10:50 AM EDT Oxygen Saturation 97% 10/24/2020 10:50 AM EDT Inhaled Oxygen Concentration - - [...] to be checked. Thursday-Thursday Same Day Endo [phone] 7a-8p Otherwise contact [phone] and ask to speak to the boiler tenders supervisor supervisor electron tube processing Follow up care is a mustafa part [...] H&P Notes * Inga Jameson MD - 10/24/2020 10:35 AM EDT Patient [...] 9:30 AM EDT Office [place] [address] Inga Jameson MD [facility] [place] [address] documented as of this encounter Procedures Procedure [...] AM EDT 10/24/2020 11:11 AM EDT Narrative [facility] - 10/24/2020 11:11 AM EDT Specimen requisition ordered. ??Separate Pathology report to follow Inga Jameson MD PATHOLOGY/CYTOLOGY O RDERABLES [facility] [place] [address] * Surgical Pathology Report (10/24/2020 11:05 AM EDT) Final Diagnosis [id number] ? Location: 4T; EA10; A The signing pathologist has (i) examined the relevant preparation(s) for the specimen(s) and (ii) rendered or confirmed the diagnosis(es). . ?Surgical Pathology DIAGNOSIS A - 3mm transverse colon polyp, excision: Tubular adenoma. Electronically signed by: ?Angelica HAMILTON PhD, Colette Verified: ??11/01/2020 10:49 ??Pathologist Performed at: ??-[facility] Dept. of [place]ology, [place], [place] SPECIMEN(S) SUBMITTED A - 3mm transverse colon polyp, excision (1) CLINICAL INFORMATION Screening colonoscopy SPECIMEN PROCESSING A - Labeled/Fixativ e: 3 mm transverse colon polyp, formalin. Quantity/Size: Two, 0.2 and 0.3 cm. Tissue Description: Soft, san-pink tissues. Sections/Proces sing: Submitted en toto ??in 1 cassette labeled A1. ??ajw 11/01/2020 10:49 AM EDT [facility] GI Biopsy 10/24/2020 11:0 5 AM EDT 10/24/2020 11:05 AM EDT Inga Jameson MD PATHOLOGY/CYTOLOGY O RDERABLES [facility] [place] [address] * COLONOSCOPY (10/24/2020 10:25 AM EDT) COLONOSCOPY [facility] Endoscopy Procedure Date: 10/24/2020 10:25 AM ? Patient Name: Marcelina Hanna ? Date of : 1960 ? Age: 60 ? Order #: [id number] ? Instrument Name: [id number] ? Procedure: ? Colonoscopy Indications: ? Screening [...] preparation was evaluated using ? the BBPS ([place] Bowel Preparation ? Scale) with scores of: [...] Procedure Code(s): ?? --- Professional --- ? 15246, Colonoscopy, flexible; with ? removal of tumor(s), polyp(s), or ? other lesion(s) by snare technique CPT copyright 2019 [employer]. All rights reserved. The codes documented in this report are preliminary and upon drier and pulverizer tender review may be revised to meet current [...] Action Action Date Dose Rate Site fentaNYL (pf) (50 mcg/mL) multi-dose injection ONCE PRN, Starting on Thu10/24/20 at 1042, Until Thu10/24/20 at 1402, Intra-Operative (Intra-Procedure), Routine Given 10/24/2020 10:56 AM EDT 50 mcg Right Arm Given 10/24/2020 10:48 AM EDT 50 mcg R ight Arm Given 10/24/2020 10:45 AM EDT 50 mcg R ight Arm midazolam (pf) (Versed) (1 mg/mL) multi-dose injection ONCE PRN, Starting on Thu10/24/20 at 1042, Until Thu10/24/20 at 1402, Intra-Operative (Intra-Procedure), Routine Given 10/24/2020 10:56 AM EDT 1 mg Given 10/24/2020 10:48 AM EDT 1 mg Given 10/24/2020 10:45 AM EDT 1 mg documented in this [...] Routine 1042 (Given - Provid er: Annita aPstor RN)1045 (Given - Provider: Annita Pastor RN)1048 (Given - Provider: Annita Pastor RN)1056 (Given - Provider: Annita Pastor RN) documented in this encounter Care Teams Yarder Engineer Relationship Specialty Start Date End Date Génesis Mann MD [address] [place] [address] PCP - General Family Medicine 02/07/19 documented as of this encounter
--- OUTSIDE RECORDS SUMMARY | 2024-02-15 15:07 | XMS_ITS | Encounter Summary ---
[place] [address] Care Team Providers Care Automatic Folder Seamer Name Role Phone Génesis Mann MD Primary Care Provider [phone] Encounter Details Date Type Department Care Team (Late st Contact Info) Description 06/28/2020 Telephone [place] [phone] Kranthi Chambers Social History Tobacco Use Types [...] * Telephone Encounter - Kranthi Chambers - 06/28/2020 1:50 PM EST Placed outgoing phone call to patient in order to schedule a procedure. Phone Call Outcome: Left voicemail asking for return call. This was the 1st attempt If the call is returned, it can be handled by: Any Endoscopy Starting Sheet Tank Operator documented in this encounter Plan of Treatment Upcoming Encounters Date Type Department Care Team (Late st Contact Info) Description 03/25/2024 9:30 AM EDT Office [place] [phone] Inga Jameson MD [facility] [place] [address] documented as of this encounter Visit Diagnoses Not on filedocumented in this encounter Care Teams Automatic Folder Seamer Relationship Specialty Start Date End Date Génesis Mann MD [address] [place] [address] PCP - General Family Medicine 02/07/19 documented as of this encounter
--- OUTSIDE RECORDS SUMMARY | 2024-02-15 15:07 | XMS_ITS | Encounter Summary ---
[facility] [place] [address] Care Team Providers Care Tape Rules Printing Machine Operator Name Role Phone Génesis Mann MD Primary Care Provider [phone] Reason for Visit * Reason Comments Allergies * Allergy Testing (Routine) - Closed Specialty Diagnoses / Procedures Referred By Contac t Referred To Contact Allergy Diagnoses History of Helicobacter pylori infection Rina Smallwood MD [facility] [place] [address] [facility] Allergy [address] [place] [address] Referral ID Status Reason Start Date Expiration Date V isits Requested Visits Authorized [id number] Closed Consult, Test & Treat 04/24/2021 04/24/2022 1 1 Encounter Details Date Type Department Care Team (Late st Contact Info) Description 08/08/2021 11:00 AM EST [place] [address] Laura Madrigal MD [facility] DR [place]ERGY [place] [address] Drug allergy; Chronic rhinitis Social History Tobacco Use Types Packs/Day Years [...] Sign Reading Time Taken Comments Blood Pressure 120/80 08/08/2021 11:06 AM EST Pulse 75 08/08/2021 11:06 AM EST Temperature - - Respiratory Rate - - Oxygen Saturation 99% 08/08/2021 11:06 AM EST Inhaled Oxygen Concentration - - Weight - - Height - - Body Mass Index - - documented in this encounter Patient Instructions * Patient Instructions* Laura Madrigal MD - 08/08/2021 11:52 AM EST - Continue to avoid medications that you have reacted to in the past. - Fill the amoxicillin prescription 1-2 days prior to your oral challenge appointment. - Please return for penicillin allergy skin tests and oral challenge to amoxicillin. Please bring in the liquid amoxicillin to the challenge. Expect to be here about 3 hours. - You can try over the counter Flonase ( fluticasone) nasal spray per the independent jeweler's directions. PATIENT instructions for skin testing How to prepare for your test: Stop any medication containing an antihistamine 7 days prior to your appointment. Please read labels of over the counter medications for allergies, multi-symptom cold, motion sickness, acid reflux, or sleep. Examples of antihistamines include: Short-acting antihistamines: Atarax, Vistaril (hydroxyzine), Periactin (cyproheptadine), ChlorTrimeton (chlorpheniramine), Benadryl (diphenhydramine), Dimetapp (bropheniramine) Multi-symptom cold products: Advil PM, Advil Multi-Symptom Cold & Flu, Allergy & Congestion Relief, Allergy Sinus, (Regular ibuprofen is fine). Tylenol PM, Tylenol Cold & Flu Nighttime, Camelia Tichnor Plus Cold. Long acting antihistamines: Claritin (loratadine), Annabel (fexofenadine), Clarinex (desloratadine), Zyrtec (cetirizine), Xyzal (levocetirizine) Acid Relief: Pepcid (famotidine), Tagamet (cimetidine), Zantac (ranitidine) Motion sickness medications: Dramamine (dimenhydrinate), Phenergan (promethazine), Bonine (meclizine) Nasal sprays/Eye drops: Astelin (azelastine), Patanase, Patanol, Pataday (olopatadine), Zaditor/ Alaway (ketotifen), Visine-A (pheniramine) Tavist, Antihist, Dayhist (clemastine) Nyquil, ZzzQuil (Dayquil is fine), Unisom (doxylamine) This list may not include all medications with antihistamines. If you have any questions about a medication, please contact us at . Continue all other medications prescribed to you by your provider. Do NOT stop asthma medications or nasal steroid sprays prior to your visit. Please call us to reschedule your appointment if you experience any of the following symptoms the day before or the day of your test: fever, rash, hives/swelling, viral illness (cold/flu), asthma symptoms, vomiting and/or diarrhea.When in doubt, please call the Allergy office at [phone]. documented in this encounter Progress Notes * Laura Madrigal MD - 08/08/2021 11:00 AM EST Chief Complaint Patient presents with ??? Allergies HPI The patient is a pleasant 61 y.o. year old female whose consultation was requested by . The reason for consultation is evaluation and management of drug allergy. Patient is accompanied by her . The patient has H. pylori resistant to the treatment. She needs to be treated with amoxicillin but has a history of penicillin allergy. In 1976 she was given a large dose of penicillin for throat infection. She developed facial and mouth swelling. No associated hives. She questions if she had difficulty breathing because of a tonsillar abscess. She was on penicillin for several days and stopped the and her symptoms improved. Since then she is of been avoiding penicillin and amoxicillin. In 1990, she was treated with a cephalosporin for endometritis. She again developed facial swelling and hives. She tolerated the IV antibiotics are giving her the hives but had a reaction with the switch to t he oral medications. No history of Winn-Rob syndrome or toxic epidermal necrolysis. No oral ulcerations or skin desquamation with her reactions to penicillin and cephalosporins. She has never taken amoxicillin. She has chronic rhinitis. She has rhinorrhea all year-round. She takes loratadine with improvement. She is not on a beta-or[place]. No history of asthma. 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 She has 3 dogs and 3 cats. Review of Systems: All other systems reviewed and negative except as noted below: Allergies, medications, past medical/ surgical history were reviewed and updated in [facility]. Allergies: Adhesive, Adhesive tape, Belladonna alkaloids, Cephalexin, Cephalosporins, Metronidazole, Penicillins, and Pentazocine lactate Medications: Outpatient Medications Marked as Taking for the 08/08/21 encounter (Office Visit) with Taz Madrigal MD Medication Sig Dispense Refill ??? Prasterone, DHEA, 25 mg Tablet DHEA 25 mg tablet Take by oral route. ??? ibuprofen (Advil;Motrin) 200 mg Tablet ibuprofen [...] hr Take 150 mg by mouth daily. Past Medical and Social History: History reviewed. No pertinent past medical history. Past Surgical History: Procedure Laterality Date ??? PRO COLONOSCOPY, DIAGNOSTIC N/A 10/24/2020 COLONOSCOPY, DIAGNOSTIC performed by Inga Jameson MD at [facility] ENDOSCOPY ??? PRO UP GI ENDOSCOPY, BALL DIL, 30MM N/A 09/30/2016 EGD,WITH DILATION ESOPHAGUS WITH BALLOON,< 30 MM (WRVU 2.77) performed by Christiano Kidd MD at [facility] ENDOSCOPY ??? PRO UPPER GI ENDOSCOPY, BIOPSY N/A 09/30/2016 EGD WITH BIOPSY (WRVU 2.49) performed by Christiano Kidd MD at [facility] ENDOSCOPY ??? PRO UPPER GI ENDOSCOPY, BIOPSY N/A 02/15/2021 EGD WITH BIOPSY (WRVU 2.49) performed by Inga Jameson MD at [facility] ENDOSCOPY ??? PRO UPPER GI ENDOSCOPY, BIOPSY N/A 03/19/2021 EGD WITH BIOPSY (WRVU 2.49) performed by Inga Jameson MD at [facility] ENDOSCOPY ??? RHINOPLASTY 1982 ??? SINUS SURGERY ??? TONSILLECTOMY Family history: Family History Problem Relation Age of Onset ??? Ovarian Cancer Mother 87 ??? Pancreatic Cancer Father 81 ??? Breast Cancer Maternal Aunt 48 ??? Prostate Cancer Paternal Uncle at 65 from other causes ??? Colorectal Cancer Paternal Uncle 67 ??? Breast Cancer Maternal Cousin 67 neg 47 gene analysis 2018 ??? Colorectal Cancer Other MGM's brother ??? Stomach Cancer Other MGM's sister, lived to 85 ??? Cancer Other MGM's brother - bone cancer ??? Allergic Rhinitis Neg Hx ??? Asthma Neg Hx Social history: Social History Socioeconomic History ??? Marital status: Spouse name: None ??? Number of children: None ??? Years of education: None ??? Highest education level: None Occupational History ??? None Tobacco Use ??? Smoking status: Former Smoker Types: Cigarettes Quit date: 09/26/1986 Years since quittin.9 ??? Smokeless tobacco: Never Used ??? Tobacco comment: quit 1986 Vaping Use ??? Vaping Use: Never used Substance and Sexual Activity ??? Alcohol use: Yes Alcohol/week: 7.0 standard drinks Types: 7 Glasses of wine per week ??? Drug use: Never ??? Sexual activity: None Other Topics Concern ??? None Social History Narrative ??? None Social Determinants of Health Financial Resource Strain: Not on file Food Insecurity: Not on file Transportation Needs: Not on file Physical Activity: Not on file Housing Stability: Not on file Physical Exam: Vital signs reviewed. Normal Except General: - No apparent distress Eyes: - Conjunctivae without injection; - No eyelid swelling ENT: - No erythema of the tympanic membranes - Normal external ear canals - Nl nasal mucosa, septum, and turbinates; - Oropharynx well hydrated without lesions or exudates; - Face & sinuses non-tender to palpation/percussion Neck: - Symmetrical, no masses, trachea midline; Resp: - Unlabored breathing with symmetrical and equal bilateral expansion; - CTA w/o wheezes, rales, or rhonchi; CV: - Regular rate and rhythm - No pedal swelling GI: - Abdomen soft - Bowel sounds present - No hepatosplenomegaly Lymph: - No significant cervical, supraclavicular or infraclavicular lymphadenopathy Musculoskeletal: - Nl gait and station Extremities: - No clubbing, cyanosis, or edema Skin: - No rashes Neuro: - Nl gait and station Psych: - Nl and age appropriate mood and affect - Judgement and insight intact TESTS/PROCEDURES IMPRESSION/REPORT/PLAN 1. Drug allergy 2. Chronic rhinitis The patient is a pleasant 61-year-old female with H. pylori infection and chronic rhinitis who needs to be treated with amoxicillin but has a penicillin and cephalosporin allergy. I reviewed with thepatient and her the work- up for penicillin allergy. Most patients outgrow the penicillin allergy after 10 years. We discussed evaluation with penicillin allergy skin test followed with an amoxicillin challenge. If she tolerates the amoxicillin, she may consider a supervised oral challenge to a cephalosporin in the future. Patient was advised that even if she tolerates a single dose of amoxicillin during the challenge, there is a risk of delayed reactions to antibiotics especially amoxicillin. - I personally reviewed with Ms. Hanna the consent form for penicillin skin testing and oral challenge to amoxicillin The indication is history of adverse drug reaction to PCN and cephalosporins. Benefits include the possibility to receive penicillin or penicillin - derivative antibiotics in the future. Risks include but are not limited to rash, hives, angioedema, cough, wheezing, SOB, chesttightness, palpitations, light-headedness, abdominal pain, diarrhea, life- threatening anaphylaxis,delayed drug rash and non- IgE mediated reaction. Alternatives is to continue to avoid penicillin and penicillin derived antibiotics. Ms. Hanna had the opportunity to review the consent form and ask questions. All questions were answered. She signed the consent form. -The patient will return for penicillin allergy skin test and oral challenge to amoxicillin. Instructions provided in the AVS and reviewed with the patient and her . -She should continue to avoid medication she has reacted to in the past -She can try [id number] Flonase nasal spray per the independent jeweler's directions for her rhinitis-she can continue taking loratadine 10 mg once daily per the independent jeweler's directions for her rhinitis as well. She needs to hold it for a week prior to allergy skin testing. No orders of the defined types were placed in this encounter. Medication ordered or changed during this encounter, will not show discontinued medications Medications ??? amoxicillin (Amoxil) 250 mg/5 mL Suspension for Reconstitution Sig: Please bring to the allergy clinic for the supervised oral challenge. Please do not take outside of the allergy clinic. Dispense: 150 mL Refill: 0 Return if symptoms worsen or fail to improve, for SPID ( SPT +ID)- Drug allergy skin test, ODC ( drug challenge specify 30 or 90) 90- amoxicillin. eDH record was reviewed. Written instructions were reviewed and provided to the patient. No learning barriers were identified. The risks, benefits, alternatives and indications for the useof mediations prescribed or recommended during today's visit were reviewed with the patient. The patient understood and agreed with what was discussed. All questions were answered. documented in this encounter Plan of Treatment Upcoming Encounters Date Type Department Care Team (Late st Contact Info) Description 03/25/2024 9:30 AM EDT Office [place] [address] Inga Jameson MD [facility] [place] [address] documented as of this encounter Visit Diagnoses Diagnosis Drug allergy Other drug allergy Chronic rhinitis documented in this encounter Care Teams Tape Rules Printing Machine Operator Relationship Specialty Start Date End Date Génesis Mann MD [address] [place] [address] PCP - General Family Medicine 02/07/19 documented as of this encounter
--- OUTSIDE RECORDS SUMMARY | 2024-02-15 15:07 | XMS_ITS | Encounter Summary ---
[place] [address] Care Team Providers Care Acute Care Surgeon Name Role Phone Clive Shi Primary Care Provider [phone] Encounter Details Date Type Department Care Team (Late st Contact Info) Description 10/03/2016 Telephone [place] [phone] Yessy Casillas, COLLAR FOLDER OPERATOR [address] [place] [address] Social History Tobacco Use Types Packs/Day Years [...] Notes * Telephone Encounter - Yessy Casillas, COLLAR FOLDER OPERATOR - 10/03/2016 9:36 AM EDT We discussed the results of her biopsies from her EGD 09/30/16 which are positive for H. Pylori. She states she would like to check and see which antibiotic regimens she has been on in the past and will do so on Thursday. She reports she has noticed an improvement since starting the low-FODMAP diet andusing smooth move tea. I have recommended she obtain probiotics and/or kefir to supplement her regimen once we start antibiotics. I will call her on Thursday at work after she faxes the notes to me. documented in this encounter Plan of Treatment Upcoming Encounters Date Type Department Care Team (Late st Contact Info) Description 03/25/2024 9:30 AM EDT Office Visit [place] [address] Inga Jameson MD [facility] [place] [address] documented as of this encounter Visit Diagnoses Diagnosis H. pylori infection Helicobacter pylori (H. pylori) documented in this encounter Care Teams Acute Care Surgeon Relationship Specialty Start Date End Date Clive Shi PA [address] [place] [address] PCP - General General Internal Medicine 09/10/1602/06 documented as of this encounter
--- OUTSIDE RECORDS SUMMARY | 2024-02-15 15:07 | XMS_ITS | Encounter Summary ---
Author Organization [facility] [place] [address] Care Team Providers Care Glaze Carrier Name Role Phone Génesis Mann MD Primary Care Provider [phone] Reason for Referral * Allergy Testing (Routine) - Closed Specialty Diagnoses / Procedures Referred By Contac t Referred To Contact Allergy Diagnoses History of Helicobacter pylori infection Rina Smallwood MD [facility] [address] [place] [address] [facility] Allergy [address] [place] [phone] Referral ID Status Reason Start Date Expiration Date V isits Requested Visits Authorized [id number] Closed Consult, Test & Treat 04/24/2021 04/24/2022 1 1 Reason for Visit * Consultation (Routine) - Closed Specialty Diagnoses / Procedures Referred By Contac t Referred To Contact Infectious Diseases Diagnoses H. pylori infection Inga Jameson MD [facility] [address] [facility] Infectious Dis [address] [place] [id number] Referral ID Status Reason Start Date Expiration Date V isits Requested Visits Authorized [id number] Closed Consult, Test & Treat 04/09/2021 04/09/2022 1 1 Encounter Details Date Type Department Care Team (Late st Contact Info) Description 04/24/2021 2:00 PM EST Office Visit [place] [address] Rina Smallwood MD [facility] [place] [address] History of Helicobacter pylori infection Social History [...] Sign Reading Time Taken Comments Blood Pressure 152/89 04/24/2021 1:56 PM EST Pulse 78 04/24/2021 1:56 PM EST Temperature 35.8 ??C (96.4 ??F) 04/24/2021 1:56 PM ES T Respiratory Rate 16 04/24/2021 1:56 PM EST Oxygen Saturation 100% 04/24/2021 1:56 PM EST Inhaled Oxygen Concentration - - Weight 94.1 kg (207 lb 6.4 oz) 04/24/2021 1:56 P M EST Height 175.3 cm (5' 9.02) 04/24/2021 1:56 PM ES T Body Mass Index 30.61 04/24/2021 1:56 PM EST documented in this encounter Progress Notes * Rina Smallwood MD - 04/24/2021 2:00 PM EST Images from the original note were not included. INFECTIOUS DISEASE CLINIC - OUTPATIENT CONSULTATION NOTE Reason for Consult: History of Present Illness: Marcelina Hanna is a 61 y.o. female with a history of follicular and papillary thyroid cancer treated with a thyroidectomy and radioactive iodine, endometriosis status post total abdominal hysterectomy and bilateral salpingectomy diabetes mellitus, and an active H. pylori infection prompting ID referral. In speaking with her and her in clinic she did mention having GI problems all her life. Shewas diagnosed with endometriosis back in the . They incidentally found her to have H. pylori. She completed antimicrobial therapy as prescribed however did not take the bismuth. She mentioned back in the late and around the holidays she had chest pain which prompted her to undergo evaluation. An EGD noted gastritis where testing again found her to have H. pylori and she was prescribedregimen when she is taking everything as prescribed except for the bismuth. In 2017, she had seen providers here where they had empirically treated her with clarithromycin 500 mg twice daily, metronidazole 500 mg twice daily and omeprazole for 14 days to treat the H. pylori. Unfortunately her repeat stool test returned positive. Since then they performed 2 EGDs and ultimately the susceptibilitiesof the H. pylori are as below: She was referred to infectious disease to explore potential therapeutic options. Her biggest concern is potentially developing a malignancy associated with H. Pylori given her family predisposition. She is willing to undergo penicillin desensitization to complete therapy for H. pylori. She is also willing to complete regimens containing bismuth as she is recently retired Past Medical History: Follicular and papillary thyroid cancer endometriosis diabetes mellitus H. pylori infection GERD Sleep apnea ROS 14 point ROS negative except as above Past Surgical History: Past Surgical History: Procedure Laterality Date ??? PRO COLONOSCOPY, DIAGNOSTIC N/A 10/24/2020 COLONOSCOPY, DIAGNOSTIC performed by Inga Jameson MD at [facility] ENDOSCOPY ??? PRO UP GI ENDOSCOPY, BALL DIL, 30MM N/A 09/30/2016 EGD,WITH DILATION ESOPHAGUS WITH BALLOON,< 30 MM (WRVU 2.77) performed by Christiano Kidd MD at [facility] ENDOSCOPY ??? PRO UPPER GI ENDOSCOPY, BIOPSY N/A 09/30/2016 EGD WITH BIOPSY (WRVU 2.49) performed by Christiano Kidd MD at [facility] ENDOSCOPY ??? PRO UPPER GI ENDOSCOPY, BIOPSY N/A 02/15/2021 EGD WITH BIOPSY (WRVU 2.49) performed by Inga Jameson MD at [facility] ENDOSCOPY ??? PRO UPPER GI ENDOSCOPY, BIOPSY N/A 03/19/2021 EGD WITH BIOPSY (WRVU 2.49) performed by Inga Jameson MD at [facility] ENDOSCOPY Medications: ??? ibuprofen (Advil;Motrin) 200 mg Tablet ??? OneTouch Verio test strips Strip ??? cyclobenzaprine (Flexeril) 10 mg Tablet ??? methocarbamoL (Robaxin) 500 mg Tablet ??? levothyroxine (SYNTHROID) 175 mcg Tablet ??? losartan (Cozaar) 25 mg Tablet ??? cholecalciferol, Vitamin D3, (Vitamin D3) 400 unit Tablet ??? gabapentin (Neurontin) 300 mg Capsule ??? omeprazole (PriLOSEC) 40 mg Capsule, Delayed Release(E.C.) ??? loratadine (Claritin) 10 mg Tablet ??? buPROPion XL (Wellbutrin XL) 150 mg Tablet Extended Release 24 hr ??? Victoza 2-Wali 0.6 mg/0.1 mL (18 mg/3 mL) Pen Injector ??? estradiol (ESTRACE) 0.5 mg Tablet Allergies: Allergies Allergen Reactions ??? Adhesive ??? Adhesive Tape ??? Belladonna Alkaloids ??? Cephalexin ??? Cephalosporins ??? Metronidazole Nausea Only ??? Penicillins ??? 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 No wheezing, rhonchi, crackles Abdomen: BS + ND some epigastric discomfort to deep palpation, no rebound tenderness no guarding Ext: UE and LE WWP. Distal pulses palpable throughout Skin: no rashes, no splinter hemorrhages Neuro: alert and oriented to person place time and situation. No facial droop. No dysarthia Psych: normal affect Microbiology Assessment/Plan: 1 y.o. female with a history of follicular and papillary thyroid cancer treated with a thyroidectomy and radioactive iodine, endometriosis status post total abdominal hysterectomy and bilateral salpingectomy diabetes mellitus, with a current H. pylori infection and multiple previous failed attemptsto eradicate infection. At this point given the prior therapeutic regimens and resistance patterns I do not believe that the conventional based therapy will work. First- line therapy is not available as it is clarithromycin resistant. Bismuth-based quadruple therapy is not possible as there is metronidazole resistance. Concomitant therapy cannot be given given the clarithromycin and metronidazole r esistance. Sequential and hybrid therapy are not useful with the metronidazole and clarithromycin resistance as well. Levofloxacin based regimen (triple or sequential based) cannot be utilized. Second line regimens are not as useful as well given the resistance patterns. We have referred her to allergy to undergo penicillin desensitization. Once this occurs we are likely going to prescribe the following bismuth based quadruple salvage therapy (given that she has previously used clarithromycin-based) 1. Bismuth potassium citrate 220 mg twice daily 2. Amoxicillin 1g three times daily 3.tetracycline 500mg four times daily 4. PPI twice daily If she is unable to tolerate this another consideration is high-dose dual therapy as this may have similar outcomes(Reference 1). When she is able to complete desensitization we will order the medications and inform GI. Rina Smallwood MD 04/24/2021 2:27 PM Plan discussed with Dr. Stapleton This note was created using Kaliki voice recognition software. Reference Amaya Edwards MD; Mario Blount MD; Mark Dailey MD; Cheryl Vega MD, PhD? High dose dual therapy versus bismuth quadruple therapy for Helicobacter pylori eradication treatment, Medicine: July 2018- Volume 98 - Issue 7 - p [id number] doi: [id number] * Parish Stapleton MD - 04/24/2021 2:00 PM EST Ambulatory Clinic Teaching Attestation I have seen the patient in person and reviewed the fellow's history and I agree with the details aswritten. The assessment and plan were formulated in discussion with me and I agree with them as documented. Parish Stapleton MD ID Staff Physician documented in this encounter Plan of Treatment Upcoming Encounters Date Type Department Care Team (Late st Contact Info) Description 03/25/2024 9:30 AM EDT Office [place] [address] Inga Jameson MD [facility] [place] [address] Scheduled Referrals Name Type Priority Associated Diagnoses Orde r Schedule Referral to Allergy Outpatient Referral Routine History of Helicobacter pylori infection Ordered: 04/24/2021 documented as of this encounter Visit Diagnoses Diagnosis History of Helicobacter pylori infection Personal history of other infectious and parasitic disease documented in this encounter Care Teams Glaze Carrier Relationship Specialty Start Date End Date Génesis Mann MD [address] [place] [address] PCP - General Family Medicine 02/07/19 documented as of this encounter
--- OUTSIDE RECORDS SUMMARY | 2024-02-15 15:07 | XMS_ITS | Encounter Summary ---
Author Organization [facility] [place] [address] Care Team Providers Care Sox Analyst Name Role Phone Génesis Mann MD Primary Care Provider [phone] Encounter Details Date Type Department Care Team (Late st Contact Info) Description 02/24/2021 [place] [address] Inga Jameson MD [facility] [place] [address] Social History Tobacco Use Types Packs/Day Years [...] encounter Miscellaneous Notes * Telephone Encounter - Inga Jameson MD - 02/24/2021 11:10 AM EDT I reviewed with her that her biopsies for H pylori culture were not sent out to [place] in time and will need to be repeated. She agrees with repeating the upper endoscopy. documented in this encounter Plan of Treatment Upcoming Encounters Date Type Department Care Team (Late st Contact Info) Description 03/25/2024 9:30 AM EDT Office [place] [address] Inga Jameson MD [facility] [place] [address] documented as of this encounter Visit Diagnoses Not on filedocumented in this encounter Care Teams Sox Analyst Relationship Specialty Start Date End Date Génesis Mann MD [address] [place] [address] PCP - General Family Medicine 02/07/19 documented as of this encounter
--- OUTSIDE RECORDS SUMMARY | 2024-02-15 15:07 | XMS_ITS | Encounter Summary ---
[place] [address] Care Team Providers Care Finance Consultant Name Role Phone Génesis Mann MD Primary Care Provider [phone] Reason for Referral * Allergy Testing (Routine) - Authorized Specialty Diagnoses / Procedures Referred By Contac t Referred To Contact Allergy Diagnoses Allergy to penicillin Génesis Mann MD [address] [place] [address] [facility] Allergy [address] [place] [address] Referral ID Status Reason Start Date Expiration Date Visits Requested Visits Authorized [id number] Authorized Consult, Test & Treat PCP Updated and/or Approved 3 04/29/2024 6 6 Encounter Details Date Type Department Care Team (Latest Contact Info) Description 04/30/2023 Transcribe Orders eDH Incoming Referrals [phone] Génesis Mann MD [address] [place] [address] Allergy to penicillin Social History Tobacco Use Types Packs/Day Years [...] 9:30 AM EDT Office [place] [address] Inga Jameson MD [facility] [place] [address] Scheduled Referrals Name Type Priority Associated Diagnoses Orde r Schedule Referral to Allergy Outpatient Referral Routine Allergy to penicillin Ordered: 04/30/2023 documented as of this encounter Visit Diagnoses Diagnosis Allergy to penicillin Other drug allergy documented in this encounter Care Teams Finance Consultant Relationship Specialty Start Date End Date Génesis Mann MD [address] [place] [address] PCP - General Family Medicine 02/07/19 documented as of this encounter
--- OUTSIDE RECORDS SUMMARY | 2024-02-15 15:07 | XMS_ITS | Encounter Summary ---
[place] [address] Care Team Providers Care Managing Director Name Role Phone Clive Shi Primary Care Provider [phone] Reason for Visit * Reason Comments Follow-up Encounter Details Date Type Department Care Team (Late st Contact Info) Description 01/16/2017 11:00 AM EDT Office [place] [address] Yessy Casillas, [employer] [address] [place] [address] H. pylori infection; Gastroesophageal reflux disease, esophagitis presence not specified; Bloating; Dysphagia, unspecified type; Constipation, unspecified constipation type Social History Tobacco Use Types Packs/Day Years [...] Sign Reading Time Taken Comments Blood Pressure 120/76 01/16/2017 10:58 AM EDT Pulse 71 01/16/2017 10:58 AM EDT Temperature - - Respiratory Rate - - Oxygen Saturation - - Inhaled Oxygen Concentration - - Weight 93.9 kg (207 lb) 01/16/2017 10:58 AM EDT Height 175.3 cm (5' 9) 01/16/2017 10:58 AM EDT Body Mass Index 30.57 01/16/2017 10:58 AM EDT documented in this encounter Patient Instructions * Patient Instructions* Yessy Casillas APRN - 01/16/2017 11:00 AM EDT 1. Stool sample. If everything looks good, I will send a letter. If not, I will give you a call 2. Continue omeprazole once daily. 3. May continue taking senna tea if this is helpful. 4. Follow up as needed documented in this encounter Progress Notes * Yessy Casillas APRN - 01/16/2017 11:00 AM EDT Professional Model: Yessy Casillas APRN PCP: BYRON King Requesting Provider: BYRON King Reason for Visit This is a 56 y.o. female who returns to me today in follow up. GI Problem List 1. GERD -EGD 09/30/16; Schatzki ring, H. [...] Pylori stool antigen. Ordered for external lab. Time Spent With Patient 25 minutes of this 26 minute visit were spent in rnss-yn-[id number] discussion and counseling the patientas detailed per below. Interval History- 01/16/17 Tolerated antibiotics well. Completed course successfully. Took kefir and probiotic. I feel much better. Improvement in bloating and reflux symptoms. NCCP improved. Was unable to provide a stool specimen. Completed low FODMAP diet. Triggers include HFCS and wheat. Seems to tolerate fruit, except in large quantities. Currently taking omeprazole 40mg once per day. Reports that she attempted to taper off of this medication, but was unable to do so without recurrent symptoms. Administration is appropriate with regard to timing of food. Denies reflux symptoms more than once per week. Denies regurgitation. Denies nausea and vomiting. Dysphagia continues. Still requires water when she eats. May still experience this five times per week. This is a slight improvement in symptoms. Decreased from every time she eats. Does not wish to have manometry at this time. If it becomes more of an issue will do this. For her constipation has been taking senna lax tea. This is effective. She didn't use the squatty potty/foot stool. Has been more constipated since eating bread. This improves when eliminates constipating foods. HPI Has had heartburn for approximately 25 years. Symptoms have been getting worse over the past six months. Described as esophageal spasms, a severe sharp pain, substernal pyrosis with water brash, and a sour taste in her mouth. Occurs daily and was having symptoms every time she ate. Has decreased food volume and this seems to help with symptoms. Can only eat about one cup of food in one sitting. Sometimes uses cold water to get pain to stop Symptoms will awaken her at night when she has burning in her neck and throat. Of note, she was hospitalized in 2007 for this issue. Had a cardiac workupand it was determined to be NCCP. At that time, she had a EGD and was diagnosed with H. Pylori. Hasbeen treated for H. Pylori three times. Last course of treatment was in 2014. Barium swallow with upper GI done earlier this month showed an esophageal ring above her hiatal hernia. Currently taking once daily omeprazole 40 mg without regard to timing of food. Will occasionally take an evening dose. Has used prevacid in the past as well. Dysphagia to solids. Food bolus passes with liquids. Will occasionally get a spasm when swallowing liquids. No odynophagia. Has a history of NCCP. Cardiac workups have been negative. No odynophagia. No globus. Denies chronic NSAID use. Weight has been stable. Denies nausea, vomiting. Positive forearly satiety and bloating with abd distension. Bloating clearly associated with eating. Bloating can last hours. Not relieved by flatus. Chronic constipation. Currently taking one rounded teaspoon of metamucil twice daily. Strains and uses pelvic maneuvers to initiate passage of stool. Daily bowelmovements about twice daily. Occasionally has incomplete emptying. Blood related to hemorrhoids andyuniel did have a hemorrhoidectomy in 2010. No mucus. Gluten free diet for years which has improved her symptoms from what they previously were. Last colonoscopy in 2010 was normal. Today, she is concerned about a recurrence of H. Pylori and expresses concern surrounding chronic PPI use and osteopenia. Diet Reviewed: Gluten free Coffee/Tea: very little 1/2 coffee Soda/Juice/Sugary Beverages: No longer drinking soda. Just low-sugar juice with metamucil. Calcium: Dairy Food allergies: gluten? Exercise: Sleep: not sleeping well. Stress Reduction: much less stressful now. ROS Notable for the gastrointestinal symptoms as described above. CONSTITUTIONAL: Denies anorexia, fever, or unintended weight change : Denies dysuria, urinary incontinence, or dyspareunia. MUSC/SKELETAL: Neck pain. Allergies Allergies Allergen Reactions ??? Adhesive ??? Belladonna Alkaloids ??? Cephalosporins ??? Penicillins ??? Talwin [Pentazocine Lactate] Other (See Comments) delerium Current Medications Reviewed and reconciled in e-DH Medical History 1. Hypothyroidism with thyroid cancer 2. Metabolic syndrome Surgical History 1. Hemithyroidectomy- 1993 2. Hysterectomy- 2002 3. Appendectomy- 1981 4. 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 - 29 years. Has 3 kids. HABITS Denies tobacco use. Occasional alcohol use 1-2/weeks. Denies using other substances. Family History Mom is , age: 86 (ovarian cancer) Dad is , age: 82 (pancreatic cancer) Family history of stomach issues. Recent Tests 1. EGD 2007 ([place]); H. Pylori. Hiatal hernia. 2. Barium Swallow and upper GI ([facility]) 09/18/16; moderate sized hatus hernia beneat a non-sobsturcting lower esophageal ring. Evidence of GERD. Otherwise unremarkable. 3. Colonoscopy 2010; normal 4. EGD 09/30/16; Findings: ?The examined esophagus was normal. Biopsies were ?taken with a cold forceps for histology to r/o EoE ?A medium-sized hiatal hernia was present from 36-40 ?cm. ?A non-obstructing Schatzki ring (acquired) was found ?at the gastroesophageal junction. A TTS 20 mm balloon ?was fully insufflated across the ring without ?dilation and could move freely across ring indicating ?that ring is wide open and nonobstructive. ?The Z line was normal at 36 cm ?The entire examined stomach was normal. Biopsies were ?taken with a cold forceps for Helicobacter pylori ?testing of both the antrum and fundus. ?The examined duodenum was normal. Biopsies were taken ?with a cold forceps for histology. ? Impression: ?- Normal esophagus. Biopsied. ? - Medium-sized hiatal hernia. ?- Non-obstructing Schatzki ring. ?- Normal stomach. Biopsied. ?- Normal examined duodenum. Biopsied. Recommendation: ?- Await pathology results. ?Pathology; DIAGNOSIS A - Duodenum, ??biopsy: Duodenal mucosa within normal limits, including preserved villous architecture. B - Stomach, ??biopsy: Gastric antral and fundic gland mucosa with H. pylori gastritis. C - Esophagus, ??biopsy: Esophageal squamous mucosa within normal limits. Medication/Diet Trials 1. Omeprazole 40mg once daily. Physical Exam: Vitals: 01/16/17 1058 BP: 120/76 Pulse: 71 Height: 5'8 Weight: 207lbs Body mass index is 30.57 kg/(m^2). GENERAL: Healthy-appearing in no acute distress. Appears stated age. Over-nourished. SKIN: No lesions, rashes, lumps, or angiomas on exposed skin. NEURO: Alert and oriented to person, place, time, and situation. Cranial nerves II-XII intact. PSYCH: Mood appropriate. Good eye contact. Normal interaction. Answers all questions appropriately. Labs: Impression 1. Dysphagia- schatzki ring was non-obstructing and therefore unable to be dilated with a 20mm balloon. Symptoms have improved, but are still persistent. We discussed etiology, pathophysiology, diagnostic testing including HREM, and medication management. She has deferred further testing at this time. We discussed indications for follow-up. 2. GERD- improved since completing ABX for H. Pylori infection. Continues with omeprazole 40mg oncedaily. Her EGD did not show esophagitis. She does have a high BMI, but has lost 7 lbs since our last visit. I feel she will benefit from continued weight loss efforts. 3. Bloating- improved. Was able to identify trigger foods using the low-FODMAP diet. She continues to avoid these foods. No further testing indicated at this time. 4. Constipation- Currently does not meet EDENILSON IV criteria for IBS. No warning signs. Last colonoscopy 2010 was normal. Senna lax tea has been effective for managing her symptoms. 5. H. Pylori infection- This was her fourth H. Pylori infection. We do not have records of past antibiotic regimens. She has not yet submitted a stool sample for antigen testing. If the organism has not been eradicated, I feel infectious disease should be consulted about her case. Recommendations 1. Stool specimen for H. Pylori antigen testing. External order. Consider infectious disease consultation if indicated. 2. Continue omeprazole 40mg once daily. 3. Continue to avoid trigger foods 4. Consider utility of HREM 5. Continue with senna lax tea. 6. Follow up with PCP 7. GIF as needed. Signed, Yessy Casillas APRN 01/16/17 12:10 PM Section of Gastroenterology & Hepatology [facility] ?? documented in this encounter Plan of Treatment Upcoming Encounters Date Type Department Care Team (Late st Contact Info) Description 03/25/2024 9:30 AM EDT Office [place] [address] Inga Jameson MD [facility] [place] [address] documented as of this encounter Visit Diagnoses Diagnosis H. pylori infection Helicobacter pylori (H. pylori) Gastroesophageal reflux disease, esophagitis presence not specified Bloating Flatulence, eructation, and gas pain Dysphagia, unspecified type Constipation, unspecified constipation type documented in this encounter Care Teams Managing Director Relationship Specialty Start Date End Date Clive Shi PA [address] [place] [address] PCP - General General Internal Medicine 09/10/1602/06 documented as of this encounter
--- OUTSIDE RECORDS SUMMARY | 2024-02-15 15:07 | XMS_ITS | Encounter Summary ---
Author Organization [facility] [place] [address] Care Team Providers Care Die Storage Worker Name Role Phone Génesis Mann MD Primary Care Provider Reason for Visit * Reason Comments Genetic Evaluation * Consultation (Routine) - Specialty Diagnoses / Procedures Referred By Contac t Referred To Contact Hematology and Oncology Diagnoses Family history of malignant neoplasm of ovary FAMILY HX OF CANCER OVARY Génesis Mann MD [address] [place] [address] [facility] [address] [place] [phone] Referral ID Status Reason Start Date Expiration Date V isits Requested Visits Authorized [id number] Consult, Test & Treat Connection Center PCP Updated and/or Approved 01/20/2020 01/19/2021 3 3 Encounter Details Date Type Department Care Team (Latest Contact Info) Description 04/05/2020 11:00 AM EST TH Visit (TeleHealth) [place]ematology [place] [address] Lindsay Myrick, [facility] HEMATOLOGY[facility] [address] Family history of pancreatic cancer; FH: ovarian cancer in first degree relative Social History Tobacco Use Types Packs/Day Years [...] as of this encounter Progress Notes * Lindsay Myrick LGC - 04/05/2020 11:00 AM EST Marcelina Hanna was seen by NIKKO Spencer in consultation at the request of Génesis Mann to advise regarding possible heritable predisposition to cancer. I spent 40 minutes of this telehealth face to face encounter with the patient gathering medical andfamily history and discussing the likelihood of a genetic predisposition to cancer and the option of genetic testing. Reason for referral/Chief complaint Personal history of thyroid cancer and family history of breast, ovarian and pancreatic cancer. Medical history Cancer hx and treatment: Follicular and papillary thyroid cancer diagnosed at age 33. Treated with thyroidectomy and radioactive iodine. Had a ROCÍO/BSO at age 42 due to endometriosis. Has diabetes which is well controlled and has had H. Pylori for many years. Age at 1st menses: 16 Age at 1st child: 28 Menopause status: post-menopause due to BSO at age 42 Oral contraceptive use: on and off from ages [age] Hormone replacement therapy use: Estrogen since BSO. Currently weaning off. Current cancer screening: Annual mammogram. Had a colonoscopy prior to ROCÍO/BSO. Is planning to schedule a follow-up soon. Family History of Cancer Problem Relation Age of Onset ??? Ovarian Cancer Mother 87 ??? Pancreatic Cancer Father 81 ??? Breast Cancer Maternal Aunt 48 ??? Breast Cancer Maternal Cousin 67 neg 47 gene analysis 2018 ??? Colorectal Cancer Other MGM's brother ??? Stomach Cancer Other MGM's sister, lived to 85 ??? Cancer Other MGM's brother - bone cancer ??? Prostate Cancer Paternal Uncle at 65 from other causes ??? Colorectal Cancer Paternal Uncle 67 Maternal ethnic background is Vincentian, Lithuanian. Paternal ethnic background is Peruvian. Not sure if there is any Ashkenazi Congregation heritage. Genetic risk assessment Based on the family history of ovarian and pancreatic cancer in her parents, the likelihood that Marcelina would be found to have a mutation in a cancer predisposition gene is high enough to offer the option of genetic testing. Panel genetic testing for an inherited predisposition to cancer, includingovarian, pancreatic, breast, thyroid and other cancers was discussed. The risks, benefits and limitations of panel genetic testing were reviewed, specifically a high rate of identifying a variant of uncertain significance, lack of knowledge of cancer risk for newly identified, moderate risk genes included in the panel and lack of effective screening, as well as cancer risk for other cancers not observed in the family. Marcelina opted for testing with its learning's Multi-Cancer Panel, a next generationsequencing panel that simultaneously analyzes 84 genes, including BRCA1 and BRCA2, that contribute to increased risk for cancer. Marcelina was consented. Her blood sample was drawn and sent to its learning. Testing will take up to 3 weeks. Marcelina will be contacted via telephone once her test results become available. If positive, we will offer a follow-up appointment. At that time, we will discuss with Marcelina the implications that this test result may have for her, as well as her family members. We will also provide Marcelina with screening guidelines for cancer prevention and early detection, as well as answer any questions she may have. documented in this encounter Plan of Treatment Upcoming Encounters Date Type Department Care Team (Late st Contact Info) Description 03/25/2024 9:30 AM EDT Office [place] [address] Inga Jameson MD [facility] [place] [address] documented as of this encounter Visit Diagnoses Diagnosis Family history of pancreatic cancer Family history of malignant neoplasm of gastrointestinal tract FH: ovarian cancer in first degree relative documented in this encounter Care Teams Die Storage Worker Relationship Specialty Start Date End Date Génesis Mann MD [address] [place] [address] PCP - General Family Medicine 02/07/19 documented as of this encounter
--- OUTSIDE RECORDS SUMMARY | 2024-02-15 15:07 | XMS_ITS | Encounter Summary ---
[facility] [place] [address] Care Team Providers Care Drain Technician Name Role Phone Génesis Mann MD Primary Care Provider Encounter Details Date Type Department Care Team (Latest Contact Info) Description 08/09/2023 Travel Social History Tobacco Use Types Packs/Day [...] 9:30 AM EDT Office [place] [address] Inga Jameson MD [facility] [place] [address] documented as of this encounter Visit Diagnoses Not on filedocumented in this encounter Care Teams Drain Technician Relationship Specialty Start Date End Date Génesis Mann MD [address] [place] [address] PCP - General Family Medicine 02/07/19 documented as of this encounter
--- OUTSIDE RECORDS SUMMARY | 2024-02-15 15:07 | XMS_ITS | Encounter Summary ---
Author Organization [facility] [place] [address] Care Team Providers Care Booking Supervisor Name Role Phone Génesis Mann MD Primary Care Provider [phone] Reason for Visit * Reason Comments Allergies * Allergy Testing (Routine) - Authorized Specialty Diagnoses / Procedures Referred By Contac t Referred To Contact Allergy Diagnoses Allergy to penicillin Génesis Mann MD [address] [place] [address] [facility] All[facility] [address] [place] [phone] Referral ID Status Reason Start Date Expiration Date Visits Requested Visits Authorized [id number] Authorized Consult, Test & Treat PCP Updated and/or Approved 3 04/29/2024 6 6 Encounter Details Date Type Department Care Team (Latest Contact Info) Description 08/10/2023 3:30 PM EDT [place] [address] [facility] [address] [facility] [place] [address] Penicillin allergy; Adverse effect of penicillin, initial [...] Sign Reading Time Taken Comments Blood Pressure 112/78 08/10/2023 3:19 PM EDT Pulse 89 08/10/2023 3:19 PM EDT Temperature - - Respiratory Rate - - Oxygen Saturation 99% 08/10/2023 3:19 PM EDT Inhaled Oxygen Concentration - - Weight 94.5 kg (208 lb 4.8 oz) 08/10/2023 3:19 P M EDT Height - - Body Mass Index 30.75 04/24/2021 1:56 PM EST documented in this encounter Progress Notes * Teodora Churchill MD - 08/10/2023 3:30 PM EDT CC: Penicillin allergy testing HPI: Marcelina Hanna is a pleasant 63 y.o. female with PMH hearing loss presenting for follow up of penicillin allergy. 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 pylori resistant to treatment requiring penicillin allergy testing or desensitization. I reviewed the notes from Dr. Madrigal whom she saw in 2021. She also confirmed the same history with me today. She states that at 15 years of age she had a peritonsillar abscess and had swelling of herthroat and face when she received penicillin. It was hard to tell if she had difficulty breathing due to the peritonsillar abscess. She tried oral cephalosporins for endometritis in 1990 and again experienced facial swelling and hives. No history of SJS/TN/desquamation etc. She has persistent rhinorrhea and uses loratadine daily. She took it today. She was supposed to do penicillin allergy testing with Dr. Madrigal but due to a family conflict she was unable to schedule this and would like to set this up today. ASSESSMENT/PLAN: 63 y.o. female with remote penicillin allergy (angioedema). Penicillin allergy: The patient needs access to penicillins to treat H. pylori infection so we will proceed with arranging for penicillin skin testing followed by challenge. We will work with our schedulers to try to get this onto our schedule in the near timeframe so she can get this treated. If the penicillin skin testing is positive then we would need to desensitize her in the allergy clinic. Cephalosporin allergy: When she returns for skin testing we will also test her to cefazolin as an alternative cephalosporin agent given her history of cephalosporin allergy. RTO IDT and ODC amox Teodora Churchill MD documented in this encounter Plan of Treatment Upcoming Encounters Date Type Department Care Team (Late st Contact Info) Description 03/25/2024 9:30 AM EDT Office [place] [address] [facility] [place] [address] documented as of this encounter Visit Diagnoses Diagnosis Penicillin allergy Other drug allergy Adverse effect of penicillin, initial encounter Angioedema, initial encounter Allergy to cephalosporin Other drug allergy documented in this encounter Care Teams Booking Supervisor Relationship Specialty Start Date End Date Génesis Mann MD [address] [place] [address] PCP - General Family Medicine 02/07/19 documented as of this encounter
--- OUTSIDE RECORDS SUMMARY | 2024-02-15 15:07 | XMS_ITS | Encounter Summary ---
[place] [address] Care Team Providers Care Escalator Attendant Name Role Phone Génesis Mann MD Primary Care Provider [phone] Reason for Referral * Consultation (Routine) - Closed Specialty Diagnoses / Procedures Referred By Contac t Referred To Contact Infectious Diseases Diagnoses H. pylori infection Inga Jameson MD [facility] [place] [address] [facility] Infectious Dis [address] [place] [address] Referral ID Status Reason Start Date Expiration Date V isits Requested Visits Authorized [id number] Closed Consult, Test & Treat 04/09/2021 04/09/2022 1 1 Encounter Details Date Type Department Care Team (Late st Contact Info) Description 04/09/2021 Telephone [place] [phone] Inga Jameson MD [facility] [place] [address] Social History Tobacco Use Types Packs/Day Years [...] Telephone Encounter - Inga Jameson MD - 04/09/2021 3:10 PM EST Images from the original note were not included. We reviewed her H pylori results (given below). Recommend referral to ID given her penicillin allergy and the resistance pattern. documented in this encounter Plan of Treatment Upcoming Encounters Date Type Department Care Team (Late st Contact Info) Description 03/25/2024 9:30 AM EDT Office [place] [address] Inga Jameson MD [facility] [place] [address] Scheduled Referrals Name Type Priority Associated Diagnoses Order Schedule Referral to Infectious Disease and [facility] Outpatient Referral Routine H. pylori infection Ordered: 04/09/2021 documented as of this encounter Visit Diagnoses Diagnosis H. pylori infection Helicobacter pylori (H. pylori) documented in this encounter Care Teams Escalator Attendant Relationship Specialty Start Date End Date Génesis Mann MD [address] [place] [address] PCP - General Family Medicine 02/07/19 documented as of this encounter
--- OUTSIDE RECORDS SUMMARY | 2024-02-15 15:08 | XMS_ITS | Encounter Summary ---
Author Organization [facility] Address [address] [place] [address] Care Team Providers Care Etiology Teacher Name Role Phone Unavailable Primary Care Provider Unavailabl e Encounter Details Date Type Department Care Team (Latest Contact Info) Description 04/02/2022 Lab Requisition [facility] Pathology & Laboratory Medicine - [facility] [address] [place] [address] Génesis Mann MD [address] [place] [phone] Encounter for gynecological examination (general) (routine) without abnormal findings Social History Tobacco Use Types Packs/Day Years Used Date Smoking Tobacco: Never Assessed Sex and Gender Information Value Date Recorded Sex Assigned at Not on file Gender Identity Not on file Sexual Orientation Not on file documented as of this encounter Plan of Treatment Not on file documented as of this encounter Procedures Procedure Name Priority Date/Time Associated Diagnosis Comments PAP TEST Today 04/01/2022 11:00 EDT Encounter for gynecological examination (general) (routine) without abnormal findings HPV DNA DETECTION WITH GENOTYPING, PCR Today 04/01/2022 11:00 EDT Encounter for gynecological examination (general) (routine) without abnormal findings documented in this encounter Results * HUMAN PAPILLOMAVIRUS (HPV) DETECTION-HIGH RISK TYPES (04/01/2022 11:00 EDT) HPV other High Risk types, PCR Negative Negative 04/14/2022 17:45 EST [facility] Comment:No E6 or E7 mRNA is detected from HPV types 16,18,31,33,35,39,45,51,52,56,58,59,66, and 68 by fuel cell engineer mediated amplification. Papanicolaou smear specimen (specimen) CERVIX UTERI STRUCTURE / Unknown 04/01/2022 11:00 EDT 04/10/2022 15:19 EST Génesis Mann MD MICROBIOLOGY - GENER AL ORDERABLES Performing Organization Address City/[facility]/ZIP Co de Phone Number [facility] [address] [place] [address] * PAP TEST (04/01/2022 11:00 EDT) Specimens A. Cervix and/or Endocervix , ThinPrep Imaging System with Manual Evaluation 04/14/2022 17:45 [facility] Specimen Adequacy Satisfactory for Evaluation - transformation zone component present 04/14/2022 17:45 [facility] General Categorization Negative for intraepithelial lesion or malignancy 04/14/2022 17:45 [facility] Attestation . 04/14/2022 17:45 [facility] at 1745 Clinical History See below 04/14/20 17:45 [facility] HPV The result for the Human Papillomavirus (HPV) Detection-High Risk Types is Negative. No E6 or E7 mRNA is detected from HPV types 16,18,31,33,35,39 ,45,51,52,56,58,5 9,66, and 68 by fuel cell engineer mediated amplification.Aliya ting was performed on specimen [id number] and was resulted on 04/14/2022 1632 EST by ELIZABET, LAB INSTRUMENT RESULTS IN 04/14/2022 17:45 EST [facility] Performing Lab [facility] 04/14/2022 17:45 [facility] Scanned Images 04/14/2022 17:45 [facility] Papanicolaou smear specimen (specimen) CERVIX UTERI STRUCTURE / Unknown 04/01/2022 11:00 EDT 04/02/2022 9:42 EDT Génesis Mann MD PATHOLOGY ORDERABLES Performing Organization Address City/[facility]/ZIP Co de Phone Number [facility] [address] [place] [phone] documented in this encounter Visit Diagnoses Diagnosis Encounter for gynecological examination (general) (routine) without abnormal findings documented in this encounter
--- OUTSIDE RECORDS SUMMARY | 2024-02-15 15:08 | XMS_ITS | Encounter Summary ---
Author Organization [facility] Address [address] [place] [address] Care Team Providers Care Supervisor Cartography Name Role Phone Unavailable Primary Care Provider Unavailabl e Encounter Details Date Type Department Care Team (Late st Contact Info) Description 10/01/2022 Lab Requisition [facility] Pathology & Laboratory Medicine - [facility] [address] [place] [address] Outr Resulting Lab, Provider Social History Tobacco Use Types Packs/Day Years Used Date Smoking Tobacco: Never Assessed Sex and Gender Information Value Date Recorded Sex Assigned at Not on file Gender Identity Not on file Sexual Orientation Not on file documented as of this encounter Plan of Treatment Not on file documented as of this encounter Procedures Procedure Name Priority Date/Time Associated Diagnosis Comments LYME AB Routine 10/01/2022 11:07 EDT documented in this encounter Results * LYME AB (10/01/2022 11:07 EDT) Lyme Ab Negative Negative 10/02/2022 9:41 EDT [facility] Blood VENOUS BLOOD / Unknown 10/01/2022 11:07 EDT 10/01/2022 21:21 EDT Provider Outr Resulting Lab IMMUNOLOGY A ND SEROLOGY ORDERABLES [facility] [address] [place] [address] documented in this encounter Visit Diagnoses Not on filedocumented in this encounter
--- OUTSIDE RECORDS SUMMARY | 2024-02-15 15:08 | XMS_ITS | Clinical Summary ---
Author Organization [facility] Address [address] [place] [address] Care Team Providers Care Supervisor Sound Technician Name Role Phone Unavailable Primary Care Provider Unavailabl e Social History Tobacco Use Types Packs/Day Years Used Date Smoking Tobacco: Never Assessed Sex and Gender Information Value Date Recorded Sex Assigned at Not on file Gender Identity Not on file Sexual Orientation Not on file Plan of Treatment Health Maintenance Due Date Last Done Comments Hepatitis C Screen 1960 RSV Immunization ( o r 60+ Years) (1 - 1-dose 60+ series) 2018 COVID-19 Vaccine ( season) 2023 Fall Risk Screening 2023
--- OUTSIDE RECORDS SUMMARY | 2024-02-15 15:08 | XMS_ITS | Encounter Summary ---
Author Organization [facility] [place] [address] Care Team Providers Care Leak Hunter Name Role Phone Clive Shi Primary Care Provider [phone] Reason for Visit * Auth/Cert Specialty Diagnoses / Procedures Referred By Contac t Referred To Contact Diagnoses GERD, esophageal ring, hx H. pylori. Dilation and biopsies please. Procedures PRO UPPER GI ENDOSCOPY, DIAGNOSTIC EGD, UPPER GI ENDOSCOPY Referral ID Status Reason Start Date Expiration Date Visits Re quested Visits Authorized [id number] 1 1 Encounter Details Date Type Department Care Team (Latest Contact Info) Description 09/30/2016 9:00 AM EDT - 09/30/2016 12:11 PM EDT Hospital Encounter [place] [address] Christiano Kidd MD [facility] [place] [address] Discharge Disposition: Home Social History Tobacco Use [...] Sign Reading Time Taken Comments Blood Pressure 113/82 09/30/2016 11:15 AM EDT Pulse 74 09/30/2016 10:30 AM EDT Temperature - - Respiratory Rate 16 09/30/2016 11:15 AM EDT Oxygen Saturation 95% 09/30/2016 11:15 AM EDT Inhaled Oxygen Concentration - - Weight - - Height - - Body Mass Index - - documented in this encounter Discharge Instructions * Attachments The following attachments cannot be sent through Care Everywhere. * ESOPHAGEAL DILATION: POST-OP ([place]) documented in this encounter Medications at Time [...] 9:30 AM EDT Office [place] [address] Inga Jameson MD [facility] [place] [address] documented as of this encounter Procedures Procedure [...] Report (09/30/2016 10:37 AM EDT) Final Diagnosis [id number] ?Location: 4T; EA09; A The signing pathologist [...] sing: (T1) ??gregorio 10/01/2016 11:16 AM EDT [facility] GI Biopsy 09/30/2016 10:3 7 AM EDT 09/30/2016 10:37 AM EDT GI Biopsy 09/30/2016 10:3 7 AM EDT 09/30/2016 10:37 AM EDT GI Biopsy 09/30/2016 10:3 7 AM EDT 09/30/2016 10:37 AM EDT Christiano Kidd MD PATHOLOGY/CYTOLOGY O RDERABLES [facility] [place] [place] [address] * Specimen to Pathology (surgical or derm) (09/30/2016 10:37 AM EDT) AP Specimen 09/30/2016 10:3 7 AM EDT 09/30/2016 10:37 AM EDT Narrative [facility] - 09/30/2016 10:37 AM EDT Specimen requisition ordered. ??Separate Pathology report to follow Christiano Kidd MD PATHOLOGY/CYTOLOGY Tony HODGES Performing Organization Address [facility] [place] [address] * Specimen to Pathology (surgical or derm) (09/30/2016 10:37 AM EDT) AP Specimen 09/30/2016 10:3 7 AM EDT 09/30/2016 10:37 AM EDT Narrative [facility] - 09/30/2016 10:37 AM EDT Specimen requisition ordered. ??Separate Pathology report to follow Christiano Kidd MD PATHOLOGY/CYTOLOGY Tony HODGES Performing Organization Address [facility] [place] [address] * Specimen to Pathology (surgical or derm) (09/30/2016 10:37 AM EDT) AP Specimen 09/30/2016 10:3 7 AM EDT 09/30/2016 10:37 AM EDT Narrative [facility] - 09/30/2016 10:37 AM EDT Specimen requisition ordered. ??Separate Pathology report to follow Christiano Kidd MD PATHOLOGY/CYTOLOGY Tony HODGES Performing Organization Address [facility] [place] [address] * UPPER GI ENDOSCOPY (09/30/2016 9:47 AM EDT) UPPER GI ENDOSCOPY [facility] Endoscopy ___ Procedure Date: 09/30/2016 9:47 AM ? Patient Name: Marcelina Hanna ? Date of : 1960 ? Age: 56 ? Order #: [id number] ? Instrument Name: [id number] ? ___ Procedure: ? Upper GI endoscopy Indications: ? Epigastric abdominal pain, Dyspepsia, ? Dysphagia, Heartburn, currently on qd ? PPI Providers: ? Christiano Kidd MD, Rosy Orr ? Hilda Bateman, Dock Attendant Referring MD: ?Clive Shi, Yessy Tellez ? [...] Rosy Bateman RN)1020 (Given - Provider: Rosy Bateman, RN)1023 (Given - Provider: Rosy Bateman, VIVIANA)1026 (Given - Provider: Rosy Bateman, RN) midazolam (PF) (VERSED) 1 mg/mL multi-dose injection (CANCELED) ONCE PRN, Starting on 09/30/16 at 1014, Until Thu09/30/16 at 1411, Intra-Operative (Intra-Procedure), Routine 1014 (Given - Provid er: Rosy Bateman, RN)1020 (Given - Provider: Rosy Bateman, RN)1023 (Given - Provider: Rosy Bateman, VIVIANA)1026 (Given - Provider: Rosy Bateman, RN) documented in this encounter Care Teams Leak Hunter Relationship Specialty Start Date End Date Clive Shi PA [address] [place] [address] PCP - General General Internal Medicine 09/10/1602/06 documented as of this encounter
--- OUTSIDE RECORDS SUMMARY | 2024-02-15 15:08 | XMS_ITS | Encounter Summary ---
Author Organization [facility] Address [address] [place] [address] Care Team Providers Care Director Transportation Name Role Phone Unavailable Primary Care Provider Unavailabl e Encounter Details Date Type Department Care Team (Late st Contact Info) Description 11/19/2020 Lab Requisition [facility] Pathology & Laboratory Medicine - [facility] [address] [place] [address] Outr Resulting Lab, Provider Social History Tobacco [...] Procedure Name Priority Date/Time Associated Diagnosis Comments H. PYLORI ANTIGEN Routine 11/19/2020 11: 53 EDT documented in this encounter Results * (ABNORMAL) H. PYLORI ANTIGEN (11/19/2020 11:53 EDT) H. Pylori Positive(A ) Negative 11/20/2020 12:[address] [facility] Feces SPECIMEN FROM RECTUM / Unknown 11/19/2020 11:53 EDT 11/19/2020 21:[address] [facility] - 11/20/2020 12:42 EDT Results were obtained with the [employer] [facility] [place] JOHNIE. Provider Outr Resulting Lab MICROBIOLOGY - GENERAL ORDERABLES [facility] [address] [place] [address] documented in this encounter Visit Diagnoses Not on filedocumented in this encounter
--- OUTSIDE RECORDS SUMMARY | 2024-02-15 15:08 | XMS_ITS | Referral Summary ---
Author Organization [facility] Address [address] [place] [address] Care Team Providers Care Certified Surgical Technician Name Role Phone Unavailable Primary Care Provider Unavailabl e Social History Tobacco Use Types Packs/Day Years Used Date Smoking Tobacco: Never Assessed Sex and Gender Information Value Date Recorded Sex Assigned at Not on file Gender Identity Not on file Sexual Orientation Not on file Plan of Treatment Not on file
--- OUTSIDE RECORDS SUMMARY | 2024-02-15 15:08 | XMS_ITS | Encounter Summary ---
Author Organization [facility] [place] [address] Care Team Providers Care Laboratory Specialist Name Role Phone Clive Shi Primary Care Provider [phone] Encounter Details Date Type Department Care Team (Latest Contact Info) Description 09/18/2016 - 09/18/2016 11:59 PM EDT Hospital Encounter Radiology Library at [facility] [place] [address] Mark Oliva MD [facility] [place] [address] Pain Discharge Disposition: Home Social History Tobacco Use Types Packs/Day Years Used Date Smoking Tobacco: Never Assessed Sex and Gender Information Value Date Recorded Sex Assigned at Not on file Gender Identity Not on file Sexual Orientation Not on file documented as of this encounter Medications at Time of Discharge [...] 08/13/2016 03/05/2020 documented as of this encounter Plan of Treatment Upcoming Encounters Date Type Department Care Team (Late st Contact Info) Description 03/25/2024 9:30 AM EDT [place] [address] Inga Jameson MD [facility] [place] [address] documented as of this encounter Procedures Procedure Name Priority Date/Time Associated Diagnosis Comments FILM LIBRARY STORAGE ONLY DX GI STUDY Routine 09/18/2016 12:00 AM EDT Pain documented in this encounter Results * Film Library- Storage Only DX GI Study (09/18/2016 12:00 AM EDT) Narrative [facility] - 09/24/2016 4:48 PM EDT This exam is for storage only and is auto-finalizing. Mark Oliva MD IMG FILM LIBRARY ORD ERABLES [place], [place] documented in this encounter Visit Diagnoses Diagnosis Pain Generalized pain documented in this encounter Care Teams Laboratory Specialist Relationship Specialty Start Date End Date Clive Shi PA [address] [place] [address] PCP - General General Internal Medicine 09/10/1602/06 documented as of this encounter
--- OUTSIDE RECORDS SUMMARY | 2024-02-15 15:08 | XMS_ITS | Encounter Summary ---
[place] [address] Care Team Providers Care Wrapper Off Name Role Phone Clive Shi Primary Care Provider [phone] Reason for Visit * Consultation (Routine) - Closed Specialty Diagnoses / Procedures Referred By Contac t Referred To Contact Gastroenterology Diagnoses GERD Clive Shi PA [address] [place] [address] [facility] [place] [address] [address] Referral ID Status Reason Start Date Expiration Date V isits Requested Visits Authorized [id number] Closed Consult, Test & Treat Connection Center 09/10/2016 09/10/2017 1 1 Encounter Details Date Type Department Care Team (Latest Contact Info) Description 09/26/2016 2:00 PM EDT Office [place] [phone] Yessy Casillas, CASE ASSISTANT [address] [place] [address] Gastroesophageal reflux disease, esophagitis presence not specified; Esophageal ring; Bloating; Constipation, unspecified constipation type; Esophageal dysphagia; Hypothyroidism, unspecified type; Non-cardiac chest pain Social History Tobacco Use Types Packs/Day Years Used Date Smoking Tobacco: Former Cigarettes Q uit: 09/26/1986 Smokeless Tobacco: Never Sex and Gender Information Value Date Recorded Sex Assigned at Not on file Gender Identity Not on file Sexual Orientation Not on file documented as of this encounter Last Filed Vital Signs Vital Sign Reading Time Taken Comments Blood Pressure 125/82 09/26/2016 2:13 PM EDT Pulse 88 09/26/2016 2:13 PM EDT Temperature - - Respiratory Rate - - Oxygen Saturation - - Inhaled Oxygen Concentration - - Weight 95.7 kg (211 lb) 09/26/2016 2:13 PM EDT Height 172.7 cm (5' 8) 09/26/2016 2:13 PM EDT Body Mass Index 32.08 09/26/2016 2:13 PM EDT documented in this encounter Patient Instructions * Patient Instructions* Yessy Casillas APRN - 09/26/2016 2:00 PM EDT It was a pleasure to meet you today. -Take omeprazole 40mg daily on an empty stomach 30-60 minutes before your first meal of the day. Itis important to take the medication this way because of how it works. Otherwise it is not as effective for managing your symptoms. You may use Gaviscon for breakthrough symptoms. -Upper Endoscopy (EGD) with anesthesia. -GERD diet: -Low-fat diet. Fat slows down digestion, relaxes the sphincter at the bottom of your esophagus and allows for reflux of acid. -Avoid trigger foods such as caffeine, carbonated beverages, acidic foods (tomato sauce, orange juice), spicy foods, chocolate, and peppermint ONLY if they cause symptoms. -Avoid alcohol -Limit caffeine intake -Eat small frequent meals. -Wait about 2-4 hours after eating before going to bed at night. This means no snacking. -Consider elevating the head of your bed at night (place bricks under legs of the bed). -Losing even 5-10 pounds can reduce your symptoms. -Low FODMAP diet for 2 weeks. -Smooth move tea at night or senna at night. -Follow up appointment 8 weeks. -Contact me using my DH, or call my nurse at if you have any questions or concerns. documented in this encounter Progress Notes * Yessy Casillas APRN - 09/26/2016 2:00 PM EDT Manager Games: Yessy Casillas APRN PCP: BYRON King Requesting Provider: BYRON King Reason for Consultation This is a 56 y.o. female with a history significant for difficulty swallowing, osteopenia, hiatal hernia, metabolic syndrome, and hypothyroidism. I am seeing her as a new patient today in consult forGERD. Time Spent With Patient 50 minutes of this 63 minute visit were spent in bkhi-ta-kura discussion and counseling the patientas detailed per below. HPI Has had heartburn for approximately 25 [...] hemorrhoids andyuniel did have a hemorrhoidectomy in 2011. No mucus. Gluten free diet for years [...] Denies anorexia, fever, or unintended weight change ENT: Denies oral ulcers, odynophagia, globus. RESPIRATORY: Denies cough, shortness of breath, wheezing CV: See HPI. Denies palpitations. : Denies dysuria, urinary incontinence, or dyspareunia. MUSC/SKELETAL: Neck pain. INTEGUMENTARY: Denies recent skin rash or lesions. ALL/IMMUNO: Denies seasonal allergies, frequent colds. Allergies Allergies Allergen Reactions ??? Adhesive ??? Belladonna Alkaloids ??? Cephalosporins ??? Penicillins Current Medications Reviewed and reconciled in e-DH Medical History 1. Hypothyroidism with thyroid cancer 2. Metabolic syndrome Surgical History 1. Hemithyroidectomy- 1993 2. Hysterectomy- 2002 3. Appendectomy- 1981 4. 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 - 29 years. Has 3 kids. HABITS Denies tobacco use. Occasional alcohol use 1-2/weeks. Denies using other substances. Family History Mom is , age: 86 (ovarian cancer) Dad is , age: 82 (pancreatic cancer) Family history of stomach issues. Recent Tests 1. EGD 2007 ([place]); H. Pylori. Hiatal hernia. 2. Barium Swallow and upper GI ([facility]) 09/18/16; moderate sized hatus hernia beneat a non-sobsturcting lower esophageal ring. Evidence of GERD. Otherwise unremarkable. 3. Colonoscopy 2010; normal Medication/Diet Trials 1. Omeprazole 40mg once daily. Physical Exam: Vitals: 09/26/16 1413 BP: 125/82 Pulse: 88 Height: 5'8 Weight: 211 lbs Body mass index is 32.08 kg/(m^2). GENERAL: Healthy-appearing in no acute distress. Appears stated age. Over-nourished. SKIN: No lesions, rashes, lumps, or angiomas on exposed skin. NECK: No adenopathy. No thyromegaly. HEENT: PERRL, EOMI, mucosa clear without ulceration or lesions, normal dentition LUNGS: Clear to auscultation bilaterally COR: Regular, normal S1 and S2 without murmurs. ABD: Normal active BS. Soft, non-distended. No bruits. No tenderness to deep palpation in all 4 quadrants. No organomegaly. EXT: No cyanosis, clubbing, or edema. NEURO: Alert and oriented to person, place, time, and situation. Cranial nerves II-XII intact. PSYCH: Mood appropriate. Good eye contact. Normal interaction. Answers all questions appropriately. Labs: Impression/Recommendations This is a pleasant, insightful woman with a long history of GERD and hiatal hernia experiencing worsening symptoms. Typical presentation with pyrosis, water brash, and bitter/acid taste. Nocturnal waking. Several episodes of H. Pylori in her medical history. Dysphagia to solids only with an esophageal ring on barium swallow. Sharp painful spasms may be related to NCCP caused by uncontrolled reflux versus esophageal neuromuscular dysfunction (spastic disorder). Last EGD approximately 12 years ago. Bloating and early satiety with a history of prolonged antibiotic use, although greater than one year ago. Metabolic syndrome. Consider dyspepsia versus SIBO. Chronic constipation currently manage d, although not completely satisfied with metamucil. Consider pelvic floor dysfunction. 1. GERD; EGD with dilation of schatzki's ring and biopsies for H. pylori. Consider H. Pylori vs. esophagitis. Consider another PPI pending results. GERD diet and lifestyle modifications. Reviewed andprovided to patient. We discussed the long-term safety of PPIs including benefits of quality of life and risks, which though minimal include some data showing some correlation in large population studies with bone disease. We discussed appropriate medication administration of PPIs and methods for improving efficacy of medication. May use gaviscon at night for breakthrough symptoms. 2. NCCP; consider GERD vs. Esophageal spasms. Consider utility of HREM. Patient wishes to defer at this time. 3. Dysphagia; solids only with occasional exacerbation to liquids. Obstruction related to schatzki's ring vs. Esophageal spasms. 4. Bloating; Consider dyspepsia vs. SIBO. [place] kefir 1/2-1 cup per day. Low- FODMAP diet x 2 weeks. Gradually reintroduce foods. Consider FD Michi. Consider utility of HBT. 5. Constipation; Smooth move tea or senna 1-4 tablets at night to promote morning bowel movement. She prefers natural products. Squatty potty/foot stool. Consider pelvic floor dysfunction. 6. GIF approximately 8 weeks. Signed, Yessy Casillas APRN 09/26/16 3:33 PM Section of Gastroenterology & Hepatology [facility] ?? documented in this encounter Plan of Treatment Upcoming Encounters Date Type Department Care Team (Late st Contact Info) Description 03/25/2024 9:30 AM EDT Office [place] [address] Inga Jameson MD [facility] [place] [address] Scheduled Orders Name Type Priority Associated Diagnoses Orde r Schedule UPPER GI ENDOSCOPY Procedures Routine Gastroesophageal reflux disease, esophagitis presence not specified Esophageal ring Bloating Ordered: 09/26/2016 documented as of this encounter Visit Diagnoses Diagnosis Gastroesophageal reflux disease, esophagitis presence not specified Esophageal ring Congenital tracheoesophageal fistula, esophageal atresia and stenosis Bloating Flatulence, eructation, and gas pain Constipation, unspecified constipation type Esophageal dysphagia Dysphagia, pharyngoesophageal phase Hypothyroidism, unspecified type Non-cardiac chest pain Other chest pain documented in this encounter Care Teams Wrapper Off Relationship Specialty Start Date End Date Clive Shi PA [address] [place] [address] PCP - General General Internal Medicine 09/10/1602/06 documented as of this encounter
[2024-02-16 12:38] LABS: Helicobacter pylori Ag, Feces Positive (Negative)
== END 2024-02-15 15:05 | disposition home or self-care (01) ==
LOC: LBN 15:04
PROVIDERS: PCP Family Medicine; Visit Provider Internal Medicine
DX: L60.0 Ingrowing nail (principal); L60.3 Nail dystrophy; M20.22 Hallux rigidus, left foot; M20.42 Other hammer toe(s) (acquired), left foot
CPT/HCPCS: 87338

== ENCOUNTER 2024-05-11 01:39 | Outpatient (CLI) | payer MEDICARE, OTHER, SELFPAY ==
--- NOTE | 2024-05-11 09:32 | DI.MAMMO_ITS ---
Exam(s) MAMMO SCREENING EXAM: MAMMO SCREENING CLINICAL HISTORY: SCREENING MAMMO Z12.31. TECHNIQUE: Bilateral full field digital CC and MLO mammographic images were obtained with 3D tomosyn thesis and utilizing computer aided detection (CAD). COMPARISON: Prior mammograms were reviewed. FINDINGS: There has been no significant change in the appearance and distribution of the fibroglandular tissue. There are no CAD designations. There are no new spiculated masses nor malignant appearing microcalcification groups. There is no significant architectural distortion nor skin thickening-retraction. IMPRESSION: No radiographic evidence of malignancy. BI-RADS Category 1 - Negative Breast Density - Category A - Almost entirely fatty Breast density Category C or D implies that the patient has dense breast tissue. Dense breast tissue can make it harder to find cancer on a mammogram. Dense breast tissue is also associated with an incr eased risk of breast cancer. This information about the result of the mammogram report was provided to the patient to raise their awareness. Use this report when you speak with the patient about their risks for breast cancer, which includes their family history. At that time, you may recommend additional screening tests (Ultrasoun d or MRI) as these tests may add significant information. A negative radiographic report should not delay biopsy if a dominant or clinically suspicious mass is present. Up to ten percent of cancers are not identified on mammography. A negative report may reinforce clinical impression. Adenosis and dense breasts may obscure an underlying neoplasm. False positive reports average 6 to 10%. Patient will receive a letter notifying them of these results.
== END 2024-05-11 01:59 ==
PROVIDERS: PCP Family Medicine; Visit Provider Family Medicine
DX: Z12.31 Encounter for screening mammogram for malignant neoplasm of breast (principal); R92.313 Mammographic fatty tissue density, bilateral breasts
CPT/HCPCS: 77063; 77067

== ENCOUNTER 2024-05-30 22:02 | Outpatient (REF) | payer MEDICARE, OTHER, SELFPAY ==
--- OUTSIDE RECORDS SUMMARY | 2024-05-30 22:09 | XMS_ITS | Encounter Summary ---
Author Organization [facility] [place] [address] Care Team Providers Care Director Hair Name Role Phone Génesis Mann MD Primary [...] Information Value Date Recorded Sex Assigned at Female 05/05/2024 7:13 AM EST Gender Identity Female 05/05/2024 7:13 AM EST Sexual Orientation Straight 05/05/2024 7: 13 AM EST documented as of this encounter Plan of Treatment Upcoming Encounters Date Type Department Care Team (Late st Contact Info) Description 06/16/2024 2:30 PM EST TH Visit (TeleHealth) [place] [address] Inga Jameson MD [facility] [place] [address] documented as of this encounter Visit Diagnoses Not on filedocumented in this encounter Care Teams Director Hair Relationship Specialty Start Date End Date Génesis Mann MD [address] [place] [address] PCP - General Family Medicine 02/07/19 documented as of this encounter
--- OUTSIDE RECORDS SUMMARY | 2024-05-30 22:09 | XMS_ITS | Encounter Summary ---
[place] [address] Care Team Providers Care Human Capital Consultant Name Role Phone Génesis Mann MD Primary Care Provider [phone] Encounter Details Date Type Department Care Team (Late st Contact Info) Description 10/08/2023 [place] [address] Ruth Teresa Social History Tobacco Use Types [...] AM EST documented as of this encounter Miscellaneous Notes * Telephone Encounter - Ruth Teresa - 10/08/2023 10:56 AM EDT Called pt and unable to LVM. Scheduled pt for 's next avail and added to wait list. Also sent pt a [employer] message. documented in this encounter Plan of Treatment Upcoming Encounters Date Type Department Care Team (Late st Contact Info) Description 06/16/2024 2:30 PM EST TH Visit (TeleHealth) [place] [address] Inga Jameson MD [facility] [place] [address] documented as of this encounter Visit Diagnoses Not on filedocumented in this encounter Care Teams Human Capital Consultant Relationship Specialty Start Date End Date Génesis Mann MD [address] [place] [address] PCP - General Family Medicine 02/07/19 documented as of this encounter
--- OUTSIDE RECORDS SUMMARY | 2024-05-30 22:09 | XMS_ITS | Encounter Summary ---
Author Organization [facility] [place] [address] Care Team Providers Care Combat Engineer Name Role Phone Génesis Mann MD Primary Care Provider [phone] Encounter Details Date Type Department Care Team (Late st Contact Info) Description 03/19/2021 10:00 AM EDT - 03/19/2021 10:30 AM EDT Surgery [place] [address] Inga Jameson MD [facility] [place] [address] EGD WITH BIOPSY (WRVU 2.39) Social History [...] AM EST documented as of this encounter Last Filed [...] the day after the procedure, use an gwdl-cpv-kvdvomd spray to numb your throat. Sucking on [...] occurs, please contact your Doctor. Please call [phone] before 8pm Mon-Fri with problems, questions or concerns. If you call after 8pm or on weekends, call the Hospital at [phone] and ask to speak to the Post Acute Care Nurse Practitioner supply person and the covering machine operator will contact that person for you. When should you call for help? Call [phone] anytime you think you may need emergency [...] any problems. Where can you learn more? [facility] View your After Visit Summary and more online at [email or web address] If you would like to provide [...] cost to you. Content Version: 12.2 ?? [id number] [employer]. Care instructions adapted under license by [facility]. If you have questions about a medical condition or this instruction, always ask your healthcare professional. [employer] disclaims any warranty or liability for your use of this information. documented in this encounter Medications at Time of Discharge Medication Sig Dispensed Refills Start Date End Date ibuprofen (Advil;Motrin) 200 mg Tablet ibuprofen methocarbamoL (Robaxin) 500 mg Tablet methocarbamol 500 [...] 300 mg by mouth 2 times daily. loratadine (Claritin) 10 mg Tablet Take 10 mg by mouth daily. OneTouch Verio test strips Strip 07/17/2020 12/10/2023 cyclobenzaprine (Flexeril) 10 mg Tablet cyclobenzaprine 10 mg tablet Take 1 tablet as needed by oral route. 03/25/2024 omeprazole (PriLOSEC) 40 mg Capsule, Delayed Release(E.C.) Take 40 mg by mouth daily. 03/25/2024 buPROPion XL (Wellbutrin XL) 150 mg Tablet [...] PM EST TH Visit (TeleHealth) [place] [address] Inga Jameson MD [facility] [place] [address] documented as of this encounter Procedures Procedure Name Priority Date/Time Associated Diagnosis Comments MISCELLANEOUS LAB REQUEST Routine 03/19/2021 10:35 AM EDT [facility] TEST-PALMER Routine 03/19/2021 1 0:35 AM EDT Upper Gi Endoscopy, Biopsy ([id number]) 03/19/2021 10:14 AM EDT H. pylori infection UPPER GI ENDOSCOPY Routine 03/19/2021 10 :06 AM EDT POCT GLUCOSE Routine 03/19/2021 9:23 AM EDT documented in this encounter Results * (ABNORMAL) [facility] [place] Test-[place] (03/19/2021 10:35 AM EDT) [facility] [place] Test ? Result ?Flag ??Unit ??RefValue [...] ??SDD=SUSCEPTIBL E DOSE DEPENDENT ?Test Performed by: ?[facility] ?[address], [place] [address] ?Scheduler: Sharath Holley M.D. Ph.D.; CLIA# [id number]) [facility] Other Other / Unknown 03/19/2021 1 0:35 AM EDT 03/19/2021 1:49 PM EDT Narrative Resulting Agency Comment Spec In Lab Inga Jameson MD LAB SEND OUT ORDERAB LES Performing Organization Address [facility] Co de Phone Number [facility] [place] [address] * Miscellaneous Lab request (03/19/2021 10:35 AM EDT) Label Request received in lab. [facility] Other 03/19/2021 10:3 5 AM EDT 03/19/2021 10:45 AM EDT Narrative Resulting Agency Comment Spec In Lab Inga Jameson MD LAB SEND OUT ORDERAB LES Performing Organization Address [facility] Co de Phone Number [facility] [place] [address] * UPPER GI ENDOSCOPY (03/19/2021 10:06 AM EDT) UPPER GI ENDOSCOPY [facility] Endoscopy Procedure Date: 03/19/2021 10:06 AM ? Patient Name: Marcelina Hanna ? Date of : 1960 ? Age: 60 ? Order #: [id number] ? Instrument Name: [id number] ? Procedure: ? Upper GI endoscopy Indications: [...] Glucose, POC 114 65 - 199 mg/dL [facility] Comment: Supplemental ranges: <140 mg/dL before meals <180 mg/dL all other times of the day Blood 03/19/2021 9:23 AM EDT 03/18/2021 12:00 PM EDT Inga Jameson MD POINT OF CARE TEST O RDERABLES [facility] [place] [id number] documented in this encounter Visit Diagnoses Diagnosis [...] RN) documented in this encounter Care Teams Combat Engineer Relationship Specialty Start Date End Date Génesis Mann MD [address] [place] [address] PCP - General Family Medicine 02/07/19 documented as of this encounter
--- OUTSIDE RECORDS SUMMARY | 2024-05-30 22:09 | XMS_ITS | Encounter Summary ---
[facility] [place] [address] Care Team Providers Care Equipment Or Machinery Cleaner Name Role Phone Génesis Mann MD Primary Care Provider [phone] Encounter Details Date Type Department Care Team (Late st Contact Info) Description 03/08/2021 Telephone [place] [phone] Esperanza Kruger Social History Tobacco Use Types [...] recent EGD did not get sent to [place]. I offered to reschedule the TH follow-up. Patient declined and asked that we check with Dr. Jameson to see when she should follow-up after her procedure. documented in this encounter Plan of Treatment Upcoming Encounters Date Type Department Care Team (Late st Contact Info) Description 06/16/2024 2:30 PM EST TH Visit (TeleHealth) [place] [address] Inga Jameson MD [facility] [address] documented as of this encounter Visit Diagnoses Not on filedocumented in this encounter Care Teams Equipment Or Machinery Cleaner Relationship Specialty Start Date End Date Génesis Mann MD [address] [place] [address] PCP - General Family Medicine 02/07/19 documented as of this encounter
--- OUTSIDE RECORDS SUMMARY | 2024-05-30 22:09 | XMS_ITS | Encounter Summary ---
[place] [address] Care Team Providers Care Bindery Production Manager Name Role Phone Génesis Mann MD Primary Care Provider [phone] Reason for Referral * Allergy Testing (Routine) - Closed Specialty Diagnoses / Procedures Referred By Contac t Referred To Contact Allergy Diagnoses Allergy to penicillin Génesis Mann MD [address] [place] [address] [facility] [address] [place] [address] Referral ID Status Reason Start Date Expiration Date V isits Requested Visits Authorized [id number] Closed Consult, Test & Treat PCP Updated and/or Approved 04/30/2023 04/29/2024 6 6 Encounter Details Date Type Department Care Team (Latest Contact Info) Description 04/30/2023 Transcribe Orders eDH Incoming Referrals [phone] Génesis Mann MD [address] [place] [address] Allergy to penicillin Social History Tobacco [...] PM EST TH Visit (TeleHealth) [place] [address] Igna Jameson MD [facility] [place] [address] Scheduled Referrals Name Type Priority Associated Diagnoses Orde r Schedule Referral to Allergy Outpatient Referral Routine Allergy to penicillin Ordered: 04/30/2023 documented as of this encounter Visit Diagnoses Diagnosis Allergy to penicillin Other drug allergy documented in this encounter Care Teams Bindery Production Manager Relationship Specialty Start Date End Date Génesis Mann MD [address] [place] [address] PCP - General Family Medicine 02/07/19 documented as of this encounter
--- OUTSIDE RECORDS SUMMARY | 2024-05-30 22:09 | XMS_ITS | Encounter Summary ---
[place] [address] Care Team Providers Care Kettle Cook Name Role Phone Génesis Mann MD Primary Care Provider [phone] Reason for Visit * Reason Comments Allergies * Allergy Testing (Routine) - Closed Specialty Diagnoses / Procedures Referred By Contac t Referred To Contact Allergy Diagnoses History of Helicobacter pylori infection Rina Smallwood MD [facility] [place] [address] [facility] [address] [place] [address] Referral ID Status Reason Start Date Expiration Date V isits Requested Visits Authorized [id number] Closed Consult, Test & Treat 04/24/2021 04/24/2022 1 1 Encounter Details Date Type Department Care Team (Late st Contact Info) Description 08/08/2021 11:00 AM EST [place] [address] Laura Madrigal MD Drug allergy; Chronic rhinitis Social History Tobacco [...] Flonase ( fluticasone) nasal spray per the personnel counselor's directions. PATIENT instructions for skin testing How [...] PM, Tylenol Cold & Flu Nighttime, Camelia [place] Plus Cold. Long acting antihistamines: Claritin (loratadine), [...] doubt, please call the Allergy office at [phone]. documented in this encounter Progress Notes * [...] surgical history were reviewed and updated in [facility]. Allergies: Adhesive, Adhesive tape, Belladonna alkaloids, [...] DIAGNOSTIC performed by Inga Jameson MD at [facility] END[facility] ??? PRO UP GI ENDOSCOPY, BALL DIL, 30MM N/A 09/30/2016 EGD,WITH DILATION ESOPHAGUS WITH BALLOON,< 30 MM (WRVU 2.77) performed by Christiano Kidd MD at [facility] ??? PRO UPPER GI ENDOSCOPY, BIOPSY N/A 09/30/2016 EGD WITH BIOPSY (WRVU 2.49) performed by Christiano Kidd MD at [facility] ??? PRO UPPER GI ENDOSCOPY, BIOPSY N/A 02/15/2021 EGD WITH BIOPSY (WRVU 2.49) performed by Inga Jameson MD at [facility] ??? PRO UPPER GI ENDOSCOPY, BIOPSY N/A 03/19/2021 EGD WITH BIOPSY (WRVU 2.49) performed by Inga Jameson MD at [facility] ??? RHINOPLASTY 1982 ??? SINUS SURGERY [...] to in the past -She can try [id number] Flonase nasal spray per the personnel counselor's directions for her rhinitis-she can continue taking loratadine 10 mg once daily per the personnel counselor's directions for her rhinitis as well. She [...] PM EST TH Visit (TeleHealth) [place] [address] Inga Jameson MD [facility] [place] [address] documented as of this encounter Visit Diagnoses Diagnosis Drug allergy Other drug allergy Chronic rhinitis documented in this encounter Care Teams Kettle Cook Relationship Specialty Start Date End Date Génesis Mann MD [address] [place] [address] PCP - General Family Medicine 02/07/19 documented as of this encounter
--- OUTSIDE RECORDS SUMMARY | 2024-05-30 22:09 | XMS_ITS | Encounter Summary ---
[place] [address] Care Team Providers Care Electric Switch Tester Name Role Phone Génesis Mann MD Primary Care Provider [phone] Encounter Details Date Type Department Care Team (Late st Contact Info) Description 02/28/2021 Telephone [place] [address] Phylicia Tyler Social History Tobacco Use Types [...] PM EST TH Visit (TeleHealth) [place] [address] Inga Jameson MD [facility] [address] documented as of this encounter Visit Diagnoses Not on filedocumented in this encounter Care Teams Electric Switch Tester Relationship Specialty Start Date End Date Génesis Mann MD [address] [place] [address] PCP - General Family Medicine 02/07/19 documented as of this encounter
--- OUTSIDE RECORDS SUMMARY | 2024-05-30 22:09 | XMS_ITS | Encounter Summary ---
Author Organization [facility] [place] [address] Care Team Providers Care Health Lead Name Role Phone Génesis Mann MD Primary Care Provider [phone] Encounter Details Date Type Department Care Team (Latest Contact Info) Description 03/19/2021 8:55 AM EDT - 03/19/2021 12:04 PM EDT Hospital Encounter [place] [address] Inga Jameson MD [facility] [place] [address] Discharge Disposition: Home Social History Tobacco Use [...] the day after the procedure, use an bwbb-hah-umcxxpy spray to numb your throat. Sucking on [...] occurs, please contact your Doctor. Please call [phone] before 8pm Mon-Fri with problems, questions or concerns. If you call after 8pm or on weekends, call the Hospital at [phone] and ask to speak to the Jacquard Twine Polisher Operator investigation clerk and the drone operator will contact that person for you. When should you call for help? Call [phone] anytime you think you may need emergency [...] any problems. Where can you learn more? [facility] View your After Visit Summary and more online at [email or web address] If you would like to provide feedback [...] cost to you. Content Version: 12.2 ?? [id number] [employer]. Care instructions adapted under license by [facility]. If you have questions about a medical condition or this instruction, always ask your healthcare professional. [employer] disclaims any warranty or liability for your [...] PM EST TH Visit (TeleHealth) [place] [address] Inga Jameson MD [facility] [place] [address] documented as of this encounter Procedures Procedure Name Priority Date/Time Associated Diagnosis Comments MISCELLANEOUS LAB REQUEST Routine 03/19/2021 10:35 AM EDT [facility] TEST-PALMER Routine 03/19/2021 1 0:35 AM EDT Upper Gi Endoscopy, Biopsy ([id number]) 03/19/2021 10:14 AM EDT H. pylori infection UPPER GI ENDOSCOPY Routine 03/19/2021 10 :06 AM EDT POCT GLUCOSE Routine 03/19/2021 9:23 AM EDT documented in this encounter Results * (ABNORMAL) [facility] [place] (03/19/2021 10:35 AM EDT) [facility] [...] ??SDD=SUSCEPTIBL E DOSE DEPENDENT ?Test Performed by: ?[facility] ?[address] [place] [address] ?Chemical Unit Operator: Sharath Holley M.D. Ph.D.; IA# [id number]) [facility] Other Other / Unknown 03/19/2021 1 0:35 AM EDT 03/19/2021 1:49 PM EDT Narrative Resulting Agency Comment Spec In Lab Inga Jameson MD LAB SEND OUT ORDERAB LES Performing Organization Address [facility] [place] [address] * Miscellaneous Lab request (03/19/2021 10:35 AM EDT) Label Request received in lab. [facility] Other 03/19/2021 10:3 5 AM EDT 03/19/2021 10:45 AM EDT Narrative Resulting Agency Comment Spec In Lab Inga Jameson MD LAB SEND OUT ORDERAB LES Performing Organization Address [facility] Co de Phone Number [facility] [place] [address] * UPPER GI ENDOSCOPY (03/19/2021 10:06 AM EDT) UPPER GI ENDOSCOPY [facility] Endoscopy Procedure Date: 03/19/2021 10:06 AM ? Patient Name: Marcelina Hanna ? Date of : 1960 ? Age: 60 ? Order #: [id number] ? Instrument Name: [id number] ? Procedure: ? Upper GI endoscopy Indications: ? Helicobacter pylori Providers: ? Inga Jameson MD, Nomi Leos, ? VIVIANA, Husam Kaba MD: ?Génesis Mann MD Medicines: [...] Glucose, POC 114 65 - 199 mg/dL [facility] Comment: Supplemental ranges: <140 mg/dL before meals <180 mg/dL all other times of the day Blood 03/19/2021 9:23 AM EDT 03/18/2021 12:00 PM EDT Inga Jameson MD POINT OF CARE TEST O RDERABLES Performing Organization Address City/[facility]/ZIP Co de Phone Number [facility] [place] [address] documented in this encounter Visit Diagnoses Not [...] RN) documented in this encounter Care Teams Health Lead Relationship Specialty Start Date End Date Génesis Mann MD [address] [place] [address] PCP - General Family Medicine 02/07/19 documented as of this encounter
--- OUTSIDE RECORDS SUMMARY | 2024-05-30 22:09 | XMS_ITS | Encounter Summary ---
[place] [address] Care Team Providers Care Property Preservation Specialist Name Role Phone Génesis Mann MD Primary Care Provider [phone] Reason for Referral * Consultation (Routine) - Closed Specialty Diagnoses / Procedures Referred By Contac t Referred To Contact Infectious Diseases Diagnoses H. pylori infection Inga Jameson MD [facility] [place] [address] [facility] [address] [place] [address] Referral ID Status Reason Start Date Expiration Date V isits Requested Visits Authorized [id number] Closed Consult, Test & Treat 04/09/2021 04/09/2022 1 1 Encounter Details Date Type Department Care Team (Late st Contact Info) Description 04/09/2021 Telephone [place] [address] Inga Jameson MD [facility] [place] [address] Social History Tobacco Use Types [...] PM EST TH Visit (TeleHealth) [place] [address] Inga Jameson MD [facility] [place] [address] Scheduled Referrals Name Type Priority Associated Diagnoses Order Schedule Referral to Infectious Disease and [facility] Outpatient Referral Routine H. pylori infection Ordered: 04/09/2021 documented as of this encounter Visit Diagnoses Diagnosis H. pylori infection Helicobacter pylori (H. pylori) documented in this encounter Care Teams Property Preservation Specialist Relationship Specialty Start Date End Date Génesis Mann MD [address] [place] [address] PCP - General Family Medicine 02/07/19 documented as of this encounter
--- OUTSIDE RECORDS SUMMARY | 2024-05-30 22:09 | XMS_ITS | Encounter Summary ---
Author Organization [facility] [place] [address] Care Team Providers Care Sand Mill Operator Core Sand Name Role Phone Génesis Mann MD Primary Care Provider [phone] Encounter Details Date Type Department Care Team (Late st Contact Info) Description 01/18/2021 Telephone [place] [address] Kranthi Chambers Social History Tobacco Use Types [...] - 01/18/2021 8:45 AM EDT Marcelina Hanna [id number] Diagnosis/Indication: biopsy for H pylori culture, please [...] to patient: You must have a responsible alliance party who will drive you to your [...] PM EST TH Visit (TeleHealth) [place] [address] Inga Jameson MD [facility] [place] [address] documented as of this encounter Visit Diagnoses Not on filedocumented in this encounter Care Teams Sand Mill Operator Core Sand Relationship Specialty Start Date End Date Génesis Mann MD [address] [place] [address] PCP - General Family Medicine 02/07/19 documented as of this encounter
--- OUTSIDE RECORDS SUMMARY | 2024-05-30 22:09 | XMS_ITS | Encounter Summary ---
Author Organization [facility] [place] [address] Care Team Providers Care Extension Supervisor Name Role Phone Génesis Mann MD Primary Care Provider [phone] Encounter Details Date Type Department Care Team [...] PM EST TH Visit (TeleHealth) [place] [address] Inga Jameson MD [facility] [place] [address] documented as of this encounter Visit Diagnoses Not on filedocumented in this encounter Care Teams Extension Supervisor Relationship Specialty Start Date End Date Génesis Mann MD [address] [place] [address] PCP - General Family Medicine 02/07/19 documented as of this encounter
--- OUTSIDE RECORDS SUMMARY | 2024-05-30 22:09 | XMS_ITS | Encounter Summary ---
Author Organization [facility] [place] [address] Care Team Providers Care Restorative Aide Name Role Phone Génesis Mann MD Primary Care Provider [phone] Encounter Details Date Type Department Care Team (Late st Contact Info) Description 08/25/2022 Telephone Hematology [place] [address] Joselo Gilmore V [facility] Dr Hematology/[place] [address] Social History Tobacco Use Types Packs/Day Years [...] Notes * Telephone Encounter - Joselo Gilmore LGC - 08/25/2022 11:00 AM EDT Marcelina's spouse, Jarvis, called to ask about any potential updates to 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 At this time, [employer] has not issued a reclassification for either the MET or PALB2 VUS findings. 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 [facility] is continually collecting and analyzing their data, [...] and mailing address stay updated in the [facility] system, in order for us to [...] PM EST TH Visit (TeleHealth) [place] [address] Inga Jameson MD [facility] [place] [address] documented as of this encounter Visit Diagnoses Not on filedocumented in this encounter Care Teams Restorative Aide Relationship Specialty Start Date End Date Génesis Mann MD [address] [place] [address] PCP - General Family Medicine 02/07/19 documented as of this encounter
--- OUTSIDE RECORDS SUMMARY | 2024-05-30 22:09 | XMS_ITS | Encounter Summary ---
Author Organization [facility] [place] [address] Care Team Providers Care Clothes Shaker Name Role Phone Génesis Mann MD Primary Care Provider [phone] Encounter Details Date Type Department Care Team (Late st Contact Info) Description 02/24/2021 Telephone [place] [address] Inga Jameson MD [facility] [place] [address] Social History Tobacco Use Types Packs/Day Years [...] pylori culture were not sent out to [place] in time and will need to be repeated. She agrees with repeating the upper endoscopy. documented in this encounter Plan of Treatment Upcoming Encounters Date Type Department Care Team (Late st Contact Info) Description 06/16/2024 2:30 PM EST TH Visit (TeleHealth) [place] [address] Inga Jameson MD [facility] [place] [address] documented as of this encounter Visit Diagnoses Not on filedocumented in this encounter Care Teams Clothes Shaker Relationship Specialty Start Date End Date Génesis Mann MD [address] [place] [address] PCP - General Family Medicine 02/07/19 documented as of this encounter
--- OUTSIDE RECORDS SUMMARY | 2024-05-30 22:09 | XMS_ITS | Encounter Summary ---
[place] [address] Care Team Providers Care Chief Credit Officer Name Role Phone Génesis Mann MD Primary Care Provider [phone] Encounter Details Date Type Department Care Team (Late st Contact Info) Description 09/22/2023 3:00 PM EDT [place] [address] Penicillin allergy Social History Tobacco Use Types [...] AM EST documented as of this encounter Progress Notes * Cait Romero RN - 09/22/2023 3:00 PM EDT See alternative encounter dated 09/22/23. documented in this encounter Plan of Treatment Upcoming Encounters Date Type Department Care Team (Late st Contact Info) Description 06/16/2024 2:30 PM EST TH Visit (TeleHealth) [place] [address] Inga Jameson MD [facility] [place] [address] documented as of this encounter Procedures Procedure [...] allergy documented in this encounter Care Teams Chief Credit Officer Relationship Specialty Start Date End Date Génesis Mann MD [address] [place] [address] PCP - General Family Medicine 02/07/19 documented as of this encounter
--- OUTSIDE RECORDS SUMMARY | 2024-05-30 22:09 | XMS_ITS | Encounter Summary ---
Author Organization Formerly [facility] [place] [address] Care Team Providers Care Building Energy Consultant Name Role Phone Génesis Mann MD Primary Care Provider [phone] Encounter Details Date Type Department Care Team (Latest Contact Info) Description 03/25/2024 9:30 AM EDT Office Visit [place] [phone] Inga Jameson MD [facility] [place] [address] Metabolic dysfunction-associated steatohepatitis (MASH); History of Helicobacter pylori infection Social History [...] Sign Reading Time Taken Comments Blood Pressure 142/88 03/25/2024 9:47 AM EDT Pulse 76 03/25/2024 9:47 AM EDT Temperature - - Respiratory Rate - - Oxygen Saturation - - Inhaled Oxygen Concentration - - Weight 90.5 kg (199 lb 8 oz) 03/25/2024 9:47 AM EDT Height 172.7 cm (5' 8) 03/25/2024 9:47 AM EDT Body Mass Index 30.33 03/25/2024 9:47 AM EDT documented in this encounter Progress Notes * Inga Jameson MD - 03/25/2024 9:30 AM EDT Gastroenterology and Hepatology Follow Up Note [...] likelihood of an IgE mediated reaction <2% - 12/10/2023: Starting bismuth quadruple therapy for 14 days followed by single dose PPI for an additional 4 weeks. - 02/15/2024: H pylori stool antigen positive 1. Bismuth potassium citrate 220 mg twice daily 2. Amoxicillin 1g three times daily 3.tetracycline 500mg four times daily 4. PPI twice daily All parties consented to the use of MITUL to document this visit. Subjective History of Present Illness The patient presents for evaluation of multiple medical concerns. She is accompanied by her . She reports no current diarrhea. She had previously increased her Ozempic dosage, which led to constipation. After completing the prescribed treatment, she discontinued Ozempic due to discomfort. Shebelieves she can manage on a lower dose. She experienced significant discomfort during a period off omeprazole. She has been on a regimen of bismuth, amoxicillin, tetracycline, and a PPI twice daily for treatment of H pylori. For constipation she takes Colace, Metamucil, and senna. She reports thatMiraLAX causes more gastric distress than Metamucil. She is currently taking Metamucil once daily. She has had elevated alkaline phosphatase levels since her 20s. She recalls a period when her levels were extremely high, which she attributes to a past surgery. She has previously undergone a FibroSure test. FAMILY HISTORY Her brother had liver disease, blood clot in his portal vein, was a heavy drinker, and had uncontrolled diabetes. Current Outpatient Medications Medication Sig Dispense Refill semaglutide (Ozempic) 0.25 mg or 0.5 mg(2 mg/1.5 mL) Pen Injector Inject 0.25 mg subcutaneously once a week. DULoxetine DR (Cymbalta) [address] capsule Take 30 mg by mouth 2 times daily. ibuprofen (Advil;Motrin) 200 mg Tablet ibuprofen cyclobenzaprine [...] Tablet Take 10 mg by mouth daily. No current facility-administered medications for this visit. Objective Blood pressure 142/88, pulse 76, height 172.7 cm (5' 8), weight 90.5 kg (199 lb 8 oz). Body mass index is 30.33 kg/m??. Physical Exam Appears well, NAD Results Laboratory Studies H. pylori stool antigen was positive. AST was 29, ALT was 39, bilirubin was 0.3, and alkaline phosphatase was 128 on September 08, 2023. AST ranged between 57 and 29 since 2014. ALT highest value was 86 in March 2015 and most recent value is 39 in August 2023. Alkaline phosphatase ranged from 118 in October 2014 peaking at 143 in December 2021 and most recent value from April 2023 at 28. Bilirubin has a lways been normal. Fibroscan Results: Mean kPa: 5.0 Mean IQR: 8% (goal is <30 %) Success rate: 100% (goal is >60%) Predicted fibrosis stage: F0-1 CAP: 303 Assessment & Plan 1. Helicobacter pylori infection. The H. pylori infection persists despite previous treatments. The patient has shown resistance to metronidazole, clarithromycin, and levofloxacin but remains sensitive to amoxicillin, tetracycline, and rifampin on last culture. The patient has previously been on a quadruple regimen, but post treatment stool antigen remained positive. She has not yet been exposed to rifabutin. The potential side effects of rifabutin, including rash, urine discoloration, and lowered blood counts, were discussed. A prescription for rifabutin triple therapy will be provided, including a high-dose PPI twice daily,rifabutin 300 mg once daily, and amoxicillin 1 g three times a day. She will be retested for H. pylori after completing the treatment. 2. MASH Her liver stiffness is within the normal range, with a KPA of 5.0, a decrease from the previous KPAof 6.1 in 2020. Repeat fibroscan in 2-3 years. 3. Constipation. She reports significant constipation, likely exacerbated by Ozempic. She is currently taking Colace, Metamucil, and senna. MiraLAX was discussed but causes her more gastric distress than Metamucil. She is advised to continue with Metamucil and increase the intake if needed. The plan is to address the constipation more thoroughly after completing the antibiotic treatment. 4. Diabetes Mellitus. She reports that Ozempic has helped bring her fasting blood glucose levels down to the 90s. She is advised to restart Ozempic at a lower dose to manage her diabetes effectively. Follow-up Return in 2 month for follow-up. Inga Jameson MD Section of Gastroenterology & Hepatology [address] [place], [place] [id number] Cc: Génesis Mann MD documented in this encounter Procedure Notes * Inga Jameson MD - 03/25/2024 9:30 AM EDTAssociated Order(s): FIBROSCAN Procedure(s): FIBROSCAN Pre-Procedure Diagnose(s): Metabolic dysfunction-associated steatohepatitis (MASH) [facility] Liver Fibrosis Assessment Report Indication: MASH Performed by: Inga Jameson MD Procedure: Vibration Controlled Transient Elastography (VCTE) or Fibroscan [place] Protocol: Patient's identity, procedure and site were [...] with no complications. Fibroscan Results: Median kPa: 5.0 Mean IQR: 8% (goal is <30 %) Number of valid measurements: 10 (at least 10 required) Number of invalid measurements: 0 Predicted fibrosis stage: F0-1 CAP (dB/m): 303 Estimated steatosis grade: 3/3 % hepatocytes affected: >66% Interpretation: Based on this Fibroscan result, history, clinical examination and review of laboratory and radiological data, this patient likely has stage F0-1 liver fibrosis. documented in this encounter Plan of Treatment Upcoming Encounters Date Type Department Care Team (Late st Contact Info) Description 06/16/2024 2:30 PM EST TH Visit (TeleHealth) [place] [address] Inga Jameson MD [facility] [place] [address] Scheduled Orders Name Type Priority Associated Diagnoses Orde r Schedule Helicobacter pylori Antigen Stool Microbiology Routine History of Helicobacter pylori infection Expected: 05/25/2024, Expires: 11/24/2024 documented as of this encounter Procedures Procedure Name Priority Date/Time Associated Diagnosis Comments [id number] Routine 03/25/2024 9:30 AM EDT Metabolic dysfunction-associated steatohepatitis (MASH) documented in this encounter Results * [id number] (03/25/2024 9:30 AM EDT) Narrative Inga Jameson MD - 03/25/2024 9:30 AM EDT Inga Jameson MD ? 03/25/2024 ??5:01 PM [facility] Liver Fibrosis Assessment Report Indication: ?? MASH Performed by: ??Inga Jameson MD Procedure: Vibration Controlled Transient Elastography (VCTE) or Fibroscan [place] Protocol: Patient's identity, procedure and site were [...] with no complications. Fibroscan Results: Median kPa: 5.0 Mean IQR: 8% (goal is <30 %) Number of valid measurements: 10 (at least 10 required) Number of invalid measurements: 0 Predicted fibrosis stage: F0-1 CAP (dB/m): 303 Estimated steatosis grade: 3/3 % hepatocytes affected: >66% Interpretation: Based on this Fibroscan result, history, clinical examination and review of laboratory and radiological data, this patient likely has stage F0-1 liver fibrosis. ?? Inga Jameson MD PROCEDURE/MINOR SURG ICAL ORDERABLES documented in this encounter Visit Diagnoses Diagnosis Metabolic dysfunction-associated steatohepatitis (MASH) History of Helicobacter pylori infection Personal history of other infectious and parasitic disease documented in this encounter Care Teams Building Energy Consultant Relationship Specialty Start Date End Date Génesis Mann MD [address] [place] [address] PCP - General Family Medicine 02/07/19 documented as of this encounter
--- OUTSIDE RECORDS SUMMARY | 2024-05-30 22:09 | XMS_ITS | Encounter Summary ---
Author Organization Formerly [facility] [place] [address] Care Team Providers Care Java Developer Consultant Name Role Phone Génesis Mann MD Primary Care Provider [phone] Encounter Details Date Type Department Care Team [...] Visit (TeleHealth) [place] [address] Inga Jameson MD [facility] [place] [address] documented as of this encounter Visit Diagnoses Not on filedocumented in this encounter Care Teams Java Developer Consultant Relationship Specialty Start Date End Date Génesis Mann MD [address] [place] [address] PCP - General Family Medicine 02/07/19 documented as of this encounter
--- OUTSIDE RECORDS SUMMARY | 2024-05-30 22:09 | XMS_ITS | Encounter Summary ---
Author Organization [facility] [place] [address] Care Team Providers Care Rental Salesperson Name Role Phone Génesis Mann MD Primary Care Provider [phone] Reason for Referral * Allergy Testing (Routine) - Closed Specialty Diagnoses / Procedures Referred By Contac t Referred To Contact Allergy Diagnoses History of Helicobacter pylori infection Rina Smallwood MD [facility] DR [place] [address] [facility] [place] [address] [place] [id number] Referral ID Status Reason Start Date Expiration Date V isits Requested Visits Authorized [id number] Closed Consult, Test & Treat 04/24/2021 04/24/2022 1 1 Reason for Visit * Consultation (Routine) - Closed Specialty Diagnoses / Procedures Referred By Contac t Referred To Contact Infectious Diseases Diagnoses H. pylori infection Inga Jameson MD [facility] [place] [address] [facility] [place] [address] [place] [phone] Referral ID Status Reason Start Date Expiration Date V isits Requested Visits Authorized [id number] Closed Consult, Test & Treat 04/09/2021 04/09/2022 1 1 Encounter Details Date Type Department Care Team (Late st Contact Info) Description 04/24/2021 2:00 PM EST Office Visit [place] [address] Rina Smallwood MD [facility] [place] [address] History of Helicobacter pylori infection Social History [...] DIAGNOSTIC performed by Inga Jameson MD at [facility] ENDOSCOPY ??? PRO UP GI ENDOSCOPY, BALL DIL, 30MM N/A 09/30/2016 EGD,WITH DILATION ESOPHAGUS WITH BALLOON,< 30 MM (WRVU 2.77) performed by Christiano Kidd MD at [facility] ENDOSCOPY ??? PRO UPPER GI ENDOSCOPY, BIOPSY N/A 09/30/2016 EGD WITH BIOPSY (WRVU 2.49) performed by Christiano Kidd MD at [facility] ENDOSCOPY ??? PRO UPPER GI ENDOSCOPY, BIOPSY N/A 02/15/2021 EGD WITH BIOPSY (WRVU 2.49) performed by Inga Jameson MD at [facility] ENDOSCOPY ??? PRO UPPER GI ENDOSCOPY, BIOPSY N/A 03/19/2021 EGD WITH BIOPSY (WRVU 2.49) performed by Inga Jameson MD at [facility] ENDOSCOPY Medications: ??? ibuprofen (Advil;Motrin) 200 [...] Dr. Stapleton This note was created using [employer] voice recognition software. Reference Amaya Edwards MD; Mario Blount MD; Mark Dailey MD; Cheryl Vega MD, PhD? High dose dual therapy versus bismuth quadruple therapy for Helicobacter pylori eradication treatment, Medicine: July 2018- Volume 98 - Issue 7 - p [id number] doi: [id number] * Parish Stapleton MD - 04/24/2021 2:00 [...] PM EST TH Visit (TeleHealth) [place] [address] Inga Jameson MD [facility] [place] [address] Scheduled Referrals Name Type Priority Associated Diagnoses Orde r Schedule Referral to Allergy Outpatient Referral Routine History of Helicobacter pylori infection Ordered: 04/24/2021 documented as of this encounter Visit Diagnoses Diagnosis History of Helicobacter pylori infection Personal history of other infectious and parasitic disease documented in this encounter Care Teams Rental Salesperson Relationship Specialty Start Date End Date Génesis Mann MD [address] [place] [address] PCP - General Family Medicine 02/07/19 documented as of this encounter
--- OUTSIDE RECORDS SUMMARY | 2024-05-30 22:09 | XMS_ITS | Encounter Summary ---
Author Organization [facility] [place] [address] Care Team Providers Care Temperature Inspector Name Role Phone Génesis Mann MD Primary [...] PM EST TH Visit (TeleHealth) [place] [address] Inga Jameson MD [facility] [place] [address] documented as of this encounter Visit Diagnoses Not on filedocumented in this encounter Care Teams Temperature Inspector Relationship Specialty Start Date End Date Génesis Mann MD [address] [place] [address] PCP - General Family Medicine 02/07/19 documented as of this encounter
--- OUTSIDE RECORDS SUMMARY | 2024-05-30 22:09 | XMS_ITS | Encounter Summary ---
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
--- OUTSIDE RECORDS SUMMARY | 2024-05-30 22:09 | XMS_ITS | Encounter Summary ---
[place] [address] Care Team Providers Care Security Engineer Name Role Phone Génesis Mann MD Primary Care Provider [phone] Encounter Details Date Type Department Care Team (Late st Contact Info) Description 12/29/2023 Telephone [place] [phone] Eula Malloy RN Social History Tobacco Use [...] for H.Pylori. Would like order sent to [facility] for f/u testing. [facility] message sent with instructions. documented in this encounter Plan of Treatment Upcoming Encounters Date Type Department Care Team (Late st Contact Info) Description 06/16/2024 2:30 PM EST TH Visit (TeleHealth) [place] [address] Inga Jameson MD [facility] [place] [address] documented as of this encounter Visit Diagnoses Not on filedocumented in this encounter Care Teams Security Engineer Relationship Specialty Start Date End Date Génesis Mann MD [address] [place] [address] PCP - General Family Medicine 02/07/19 documented as of this encounter
--- OUTSIDE RECORDS SUMMARY | 2024-05-30 22:09 | XMS_ITS | Encounter Summary ---
Author Organization [facility] [place] [address] Care Team Providers Care Cone Sewer Name Role Phone Génesis Mann MD Primary Care Provider Encounter Details Date Type Department Care Team (Latest Contact Info) Description 02/15/2021 12:11 PM EDT - 02/15/2021 2:54 PM EDT Hospital En[place] [address] Inga Jameson MD [facility] [place] [address] Discharge Disposition: Home Social History Tobacco Use [...] PM EST TH Visit (TeleHealth) [place] [address] Inga Jameson MD [facility] [place] [address] documented as of this encounter Procedures Procedure Name Priority Date/Time Associated Diagnosis Comments MISCELLANEOUS LAB REQUEST Routine 02/15/2021 1:59 PM EDT SPECIMEN TO PATHOLOGY Routine 02/15/2021 1:37 PM EDT SURGICAL PATHOLOGY REPORT Routine 02/15/2021 1:36 PM EDT Upper Gi Endoscopy, Biopsy ([id number]) 02/15/2021 1:21 PM EDT H. pylori infection UPPER GI ENDOSCOPY Routine 02/15/2021 1: 02 PM EDT documented in this encounter Results * Miscellaneous Lab request (02/15/2021 1:59 PM EDT) Label Request received in lab. [facility] Other 02/15/2021 1:59 PM EDT 02/15/2021 2:02 PM EDT Narrative Resulting Agency Comment Spec In Lab Inga Jameson MD LAB SEND OUT ORDERAB LES Performing Organization Address [facility]/ZIP Co de Phone Number [facility] [place] [address] * Specimen to Pathology (02/15/2021 1:37 PM EDT) AP Specimen 02/15/2021 1:37 PM EDT 02/15/2021 1:[address] [facility] - 02/15/2021 1:37 PM EDT Specimen requisition ordered. ??Separate Pathology report to follow Inga Jameson MD PATHOLOGY/CYTOLOGY O RDERABLES Performing Organization Address [facility] Co de [place] [address] * Surgical Pathology Report (02/15/2021 1:36 PM EDT) Final Diagnosis [id number] ? Location: 4T; EA08; A The signing [...] MD Verified: ??02/25/2021 16:24 ??Pathologist Performed at: ??-[facility] Dept. of Pathology, [place], [place] ADDITIONAL STUDIES Immunohistochemistry Studies: Formalin-fixed, paraffin-embedded [...] labeled A1. ??MLL 02/25/2021 4:[address] [facility] GI Biopsy 02/15/2021 1:36 PM EDT 02/15/2021 1:36 PM EDT Inga Jameson MD PATHOLOGY/CYTOLOGY O RDERABLES [facility] [place] [address] * UPPER GI ENDOSCOPY (02/15/2021 1:02 PM EDT) UPPER GI ENDOSCOPY [facility] Endoscopy Procedure Date: 02/15/2021 1:02 PM ? Patient Name: Marcelina Hanna ? Date of : 1960 ? Age: 60 ? Order #: [id number] ? Instrument Name: [id number] ? Procedure: ? Upper GI endoscopy Indications: ? Helicobacter pylori Providers: ? Inga Jameson MD, Junaid Narvaez ? Rohan, RN, Eunice Salcido, ? Chapin Kaba MD: ?Génesis [...] RN) documented in this encounter Care Teams Cone Sewer Relationship Specialty Start Date End Date Génesis Mann MD [address] [place] [address] PCP - General Family Medicine 02/07/19 documented as of this encounter
--- OUTSIDE RECORDS SUMMARY | 2024-05-30 22:09 | XMS_ITS | Encounter Summary ---
[place] [address] Care Team Providers Care Dental Assisting Instructor Name Role Phone Génesis Mann MD Primary Care Provider [phone] Encounter Details Date Type Department Care Team (Late st Contact Info) Description 04/09/2024 Telephone [place] [phone] Grisel Hatfield Social History Tobacco Use Types Packs/Day Years [...] encounter Miscellaneous Notes * Telephone Encounter - Grisel Hatfield - 04/09/2024 10:29 AM EST Left message. Need a follow-up with Dr. Jameson in 2 months (see recall) documented in this encounter Plan of Treatment Upcoming Encounters Date Type Department Care Team (Late st Contact Info) Description 06/16/2024 2:30 PM EST TH Visit (TeleHealth) [place] [address] Inga Jameson MD [facility] [place] [address] documented as of this encounter Visit Diagnoses Not on filedocumented in this encounter Care Teams Dental Assisting Instructor Relationship Specialty Start Date End Date Génesis Mann MD [address] [place] [address] PCP - General Family Medicine 02/07/19 documented as of this encounter
--- OUTSIDE RECORDS SUMMARY | 2024-05-30 22:09 | XMS_ITS | Encounter Summary ---
Author Organization [facility] [place] [address] Care Team Providers Care Director Embalmer Name Role Phone Génesis Mann MD Primary Care Provider [phone] Encounter Details Date Type Department Care Team (Late st Contact Info) Description 12/31/2020 12:00 PM EDT Office [place] [address] Inga Jameson MD [facility] [place] [address] H. pylori infection; MANTILLA (nonalcoholic steatohepatitis) Social [...] Vitals: 12/31/20 1125 BP: 132/86 BP Location ([facility]): Left arm Patient Position: Sitting BP Cuff [...] Jameson MD Section of Gastroenterology & Hepatology [address] [place] [address] Time spent reviewing records prior to this [...] Procedure(s): FIBROSCAN Pre-Procedure Diagnose(s): MANTILLA (nonalcoholic steatohepatitis) [facility] Liver Fibrosis Assessment Report Indication: MANTILLA Performed by: Inga Jameson MD Procedure: Vibration Controlled Transient Elastography (VCTE) or Fibroscan [place] Protocol: Patient's identity, procedure and site were [...] PM EST TH Visit (TeleHealth) [place] [address] Inga Jameson MD [facility] [place] [address] Scheduled Orders Name Type Priority Associated Diagnoses Orde r Schedule ENDOSCOPY CASE REQUEST: EGD, UPPER GI ENDOSCOPY Procedures Routine H. pylori infection Ordered: 12/31/2020 documented as of this encounter Procedures Procedure Name Priority Date/Time Associated Diagnosis Comments [id number] Routine 12/31/2020 12:00 PM EDT MANTILLA (nonalcoholic steatohepatitis) documented in this encounter Results * [id number] (12/31/2020 12:00 PM EDT) Narrative Inga Jameson MD - 12/31/2020 12:00 PM EDT Inga Jameson MD ? 12/31/2020 12:50 PM [facility] Liver Fibrosis Assessment Report Indication: ?? MANTILLA Performed by: ??Inga Jameson MD Procedure: Vibration Controlled Transient Elastography (VCTE) or Fibroscan [place] Protocol: Patient's identity, procedure and site were [...] disease documented in this encounter Care Teams Director Embalmer Relationship Specialty Start Date End Date Génesis Mann MD [address] [place] [address] PCP - General Family Medicine 02/07/19 documented as of this encounter
--- OUTSIDE RECORDS SUMMARY | 2024-05-30 22:09 | XMS_ITS | Encounter Summary ---
Author Organization [facility] [place] [address] Care Team Providers Care Application Development Intern Name Role Phone Génesis Mann MD Primary Care Provider Encounter Details Date Type Department Care Team (Latest Contact Info) Description 03/25/2024 Travel Social History Tobacco Use Types Packs/Day [...] PM EST TH Visit (TeleHealth) [place] [address] Inga Jameson MD [facility] [place] [address] documented as of this encounter Visit Diagnoses Not on filedocumented in this encounter Care Teams Application Development Intern Relationship Specialty Start Date End Date Génesis Mann MD [address] [place] [address] PCP - General Family Medicine 02/07/19 documented as of this encounter
--- OUTSIDE RECORDS SUMMARY | 2024-05-30 22:09 | XMS_ITS | Encounter Summary ---
[place] [address] Care Team Providers Care Privacy Director Name Role Phone Génesis Mann MD Primary Care Provider [phone] Reason for Referral * Allergy Testing (Routine) - Closed Specialty Diagnoses / Procedures Referred By Contac t Referred To Contact Allergy Diagnoses Encounter for allergy testing Génesis Mann MD [address] [place] [address] [facility] All[facility] [address] [place] [address] Referral ID Status Reason Start Date Expiration Date V isits Requested Visits Authorized [id number] Closed Consult, Test & Treat PCP Updated and/or Approved 04/14/2022 04/14/2023 12 12 Encounter Details Date Type Department Care Team (Latest Contact Info) Description 04/14/2022 Transcribe Orders eDH Incoming Referrals [phone] Génesis Mann MD [address] [place] [address] Encounter for allergy testing Social History [...] PM EST TH Visit (TeleHealth) [place] [address] Inga Jameson MD [facility] [place] [address] Scheduled Referrals Name Type Priority Associated Diagnoses Orde r Schedule Referral to Allergy Outpatient Referral Routine Encounter for allergy testing Ordered: 04/14/2022 documented as of this encounter Visit Diagnoses Diagnosis Encounter for allergy testing Diagnostic skin and sensitization tests documented in this encounter Care Teams Privacy Director Relationship Specialty Start Date End Date Génesis Mann MD [address] [place] [address] PCP - General Family Medicine 02/07/19 documented as of this encounter
--- OUTSIDE RECORDS SUMMARY | 2024-05-30 22:09 | XMS_ITS | Encounter Summary ---
Author Organization [facility]ly [facility] [place] [address] Care Team Providers Care Medical Device Name Role Phone Génesis Mann MD Primary Care Provider [phone] Encounter Details Date Type Department Care Team (Late st Contact Info) Description 02/15/2021 1:00 PM EDT - 02/15/2021 1:30 PM EDT Surgery [place] [address] Inga Jameson MD [facility] [place] [address] EGD WITH BIOPSY (WRVU 2.39) Social History [...] PM EST TH Visit (TeleHealth) [place] [address] Inga Jameson MD [facility] [place] [address] documented as of this encounter Procedures Procedure Name Priority Date/Time Associated Diagnosis Comments MISCELLANEOUS LAB REQUEST Routine 02/15/2021 1:59 PM EDT SPECIMEN TO PATHOLOGY Routine 02/15/2021 1:37 PM EDT SURGICAL PATHOLOGY REPORT Routine 02/15/2021 1:36 PM EDT Upper Gi Endoscopy, Biopsy ([id number]) 02/15/2021 1:21 PM EDT H. pylori infection UPPER GI ENDOSCOPY Routine 02/15/2021 1: 02 PM EDT documented in this encounter Results * Miscellaneous Lab request (02/15/2021 1:59 PM EDT) Label Request received in lab. [facility] Other 02/15/2021 1:59 PM EDT 02/15/2021 2:02 PM EDT Narrative Resulting Agency Comment Spec In Lab Inga Jameson MD LAB SEND OUT ORDERAB LES Performing Organization Address [place]/ZIP Co de Phone Number [facility] [place] [address] * Specimen to Pathology (02/15/2021 1:37 PM EDT) AP Specimen 02/15/2021 1:37 PM EDT 02/15/2021 1:37 PM EDT Narrative [facility] - 02/15/2021 1:37 PM EDT Specimen requisition ordered. ??Separate Pathology report to follow Inga Jameson MD PATHOLOGY/CYTOLOGY O RDERABLES Performing Organization Address [place] Co de Phone Number [facility] [place] [address] * Surgical Pathology Report (02/15/2021 1:36 PM EDT) Final Diagnosis [id number] ? Location: 4T; EA08; A The signing [...] MD Verified: ??02/25/2021 16:24 ??Pathologist Performed at: ??-[facility] Dept. of Pathology, [place], [place] ADDITIONAL STUDIES Immunohistochemistry Studies: Formalin-fixed, paraffin-embedded [...] labeled A1. ??MLL 02/25/2021 4:24 PM EDT [facility] GI Biopsy 02/15/2021 1:36 PM EDT 02/15/2021 1:36 PM EDT Inga Jameson MD PATHOLOGY/CYTOLOGY O RDERABLES [facility] [place] [address] * UPPER GI ENDOSCOPY (02/15/2021 1:02 PM EDT) UPPER GI ENDOSCOPY [facility] Endoscopy Procedure Date: 02/15/2021 1:02 PM ? Patient Name: Marcelina Hanna ? Date of : 1960 ? Age: 60 ? Order #: [id number] ? Instrument Name: [id number] ? Procedure: ? Upper GI endoscopy Indications: ? Helicobacter pylori Providers: ? Inga Jameson MD, Junaid Narvaez ? Rohan, VIVIANA, Eunice Salcido, ? Chapin Montenegro Referring MD: [...] mcg/mL) multi-dose injection ONCE PRN, Starting on 02/15/21 at 1324, Until Thu02/15/21 at 1654, Intra-Operative [...] PRN, Starting on Thu02/15/21 at 1324, Until 02/15/21 at 1654, Intra-Operative (Intra-Procedure), Routine 1324 (Given - Provid er: Eunice Salcido, RN)1327 (Given - Provider: Eunice Salcido, RN)1331 (Given - Provider: Eunice Salcido, RN) documented in this encounter Care Teams Medical Device Relationship Specialty Start Date End Date Génesis Mann MD [address] [place] [address] PCP - General Family Medicine 02/07/19 documented as of this encounter
--- OUTSIDE RECORDS SUMMARY | 2024-05-30 22:09 | XMS_ITS | Clinical Summary ---
Author Organization [facility] [address] Care Team Providers Care Supervisor Food Checkers And Cashiers Name Role Phone Génesis Mann MD Primary Care Provider [phone] Allergies Active Allergy Reactions Criticality Noted Date [...] mg by mouth 2 times daily. Active loratadine (Claritin) 10 mg Tablet Take 10 mg by mouth daily. Active ibuprofen (Advil;Motrin) 200 mg Tablet ibuprofen Active methocarbamoL (Robaxin) 500 mg Tablet methocarbamol 500 mg tablet Take 2 tablets as needed by oral route. Active semaglutide (Ozempic) 0.25 mg or 0.5 mg(2 mg/1.5 mL) Pen Injector Inject 0.25 mg subcutaneously once a week. Active DULoxetine DR (Cymbalta) [address] capsule Take 30 mg by mouth 2 times daily. Active magnesium 250 mg tablet Take by mouth. Active multivitamin (THERAGRAN) Tablet Take 1 tablet by mouth daily. Active omeprazole (PriLOSEC) [address] capsuleIndications :History of Helicobacter pylori infection Take 1 capsule by mouth 2 times daily. 180 capsule 3 03/25/2024 Active Active Problems Patient Care Coordination No te Formatting of this note migh t be different from the original. Please call patient at [phone] - this is her cell which connects to her MDCapsuleoth hearing aid. Cannot talk on the phone [...] Encounters Date Type Department Care Team Description 04/09/2024 Telephone [place] [phone] Grisel Hatfield 03/25/2024 9:30 AM EDT Office [place] [address] Inga Jameson MD Metabolic dysfunction-associated steatohepatitis (MASH); History of Helicobacter pylori infection 03/25/2024 Travel from Last 3 Months Immunizations Name Administration Dates Next Due Covid-19 Monovalent (Moderna Spikevax) 12yrs+ (3032-1630) 04/15/2021,07/17/2020,06/19/2020 Family History Medical History Relation Comments Pancreatic Cancer Father Breast Cancer Maternal Aunt Breast Cancer Maternal Cousin neg 47 gene anal ysis 2019 Ovarian Cancer Mother Colorectal Cancer Other 1 MGM's brother Stomach Cancer Other 2 MGM's sister, lily ruchi to 85 Cancer Other 3 JENNIFER's brother - bone cancer Prostate Cancer Paternal [...] Orientation Straight 05/05/2024 7: 13 AM EST Last Filed Vital Signs Vital Sign Reading Time Taken Comments Blood Pressure 142/88 03/25/2024 9:47 AM EDT Pulse 76 03/25/2024 9:47 AM EDT Temperature 35.8 ??C (96.4 ??F) 04/24/2021 1:56 PM ES T Respiratory Rate 16 04/24/2021 1:56 PM EST Oxygen Saturation 98% 09/22/2023 3:54 PM EDT Inhaled Oxygen Concentration - - Weight 90.5 kg (199 lb 8 oz) 03/25/2024 9:47 AM EDT Height 172.7 cm (5' 8) 03/25/2024 9:47 AM EDT Body Mass Index 30.33 03/25/2024 9:47 AM EDT Plan of Treatment Upcoming Encounters Date Type Department Care Team (Late st Contact Info) Description 06/16/2024 2:30 PM EST TH Visit (TeleHealth) [place] [address] Inga Jameson MD [facility] [place] [address] Health Maintenance Due Date Last Done Comments CT Colonography 1960 FIT DNA 1960 FIT 1960 Sigmoidoscopy 1960 Hepatitis C Screening 1976 Lipid Screening 1976 Tetanus/Diphtheria/Pertussis Vaccines (1 - Tdap) 1977 HPV test 1988 PAP Smear 1988 Breast Cancer Share Decision Needed 1998 Breast Cancer screening 1998 Diabetes Screening (HgbA1C o r Glucose) 1998 Pneumoccocal Vaccine: 65+ (1 of 1 - PCV) 2008 Zoster vaccine (1 of 2) 2008 Advance Directive 2013 Bone Density Scan 2023 Covid-19 Vaccine (4 - season) 2024 04/15/2021, 07/17/2020, 06/19/2020 Influenza (Flu) vaccine (1 o f 1 - Influenza standard series) 01/31/2024 Colonoscopy 10/24/2025 10/24/2020, 10/24/2020 Colorectal Cancer Screening 10/24/2025 Sigmoidoscopy (10 year) with FIT yearly 10/24/2030 10/24/2020, 10/24/2020 Procedures Procedure Name Priority Date/Time Associated Diagnosis Comments LAB SCAN 03/28/2024 12:00 AM EDT [id number] Routine 03/25/2024 9:30 AM EDT Metabolic dysfunction-associated steatohepatitis (MASH) COLONOSCOPY Routine 10/24/2020 10:25 AM EDT from Last 3 Months or Most Recently Relevant to Health Maintenance Results * Scan Doc: Lab (03/28/2024 12:00 AM EDT) Narrative 03/28/2024 12:00 AM EDT Ordered by an unspecified provider. Scanning Provider MEDIA MGR SCAN EXT O RDR/RSLT * [id number] (03/25/2024 9:30 AM EDT) Narrative Inga Jameson MD - 03/25/2024 9:30 AM EDT Inga Jameson MD ? 03/25/2024 ??5:01 PM [facility] Liver Fibrosis Assessment Report Indication: ?? MASH Performed by: ??Inga Jameson MD Procedure: Vibration Controlled Transient Elastography (VCTE) or Fibroscan Radiant Protocol: Patient's identity, procedure and site were [...] likely has stage F0-1 liver fibrosis. ?? Inag Jameson MD PROCEDURE/MINOR SURG ICAL ORDERABLES * COLONOSCOPY (10/24/2020 10:25 AM EDT) COLONOSCOPY [facility] Endoscopy Procedure Date: 10/24/2020 10:25 AM ? Patient Name: Marcelina Hanna ? Date of : 1960 ? Age: 60 ? Order #: [id number] ? Instrument Name: [id number] ? Procedure: ? Colonoscopy Indications: ? Screening [...] preparation was evaluated using ? the BBPS ([place] Bowel Preparation ? Scale) with scores of: [...] Procedure Code(s): ?? --- Professional --- ? 10624, Colonoscopy, flexible; with ? removal of tumor(s), polyp(s), or ? other lesion(s) by snare technique CPT copyright 2019 [employer]. All rights reserved. The codes documented in this report are preliminary and upon medical record coder review may be revised to meet current [...] Recently Relevant to Health Maintenance Care Teams Supervisor Food Checkers And Cashiers Relationship Specialty Start Date End Date Génesis Mann MD [address] [place] [address] PCP - General Family Medicine 02/07/19
--- OUTSIDE RECORDS SUMMARY | 2024-05-30 22:09 | XMS_ITS | Encounter Summary ---
Author Organization [facility] [place] [address] Care Team Providers Care Recruiting Internship Name Role Phone Génesis Mann MD Primary [...] PM EST TH Visit (TeleHealth) [place] [address] Inga Jameson MD [facility] [place] [address] documented as of this encounter Visit Diagnoses Not on filedocumented in this encounter Care Teams Recruiting Internship Relationship Specialty Start Date End Date Génesis Mann MD [address] [place] [address] PCP - General Family Medicine 02/07/19 documented as of this encounter
--- OUTSIDE RECORDS SUMMARY | 2024-05-30 22:09 | XMS_ITS | Encounter Summary ---
Author Organization [facility] [place] [address] Care Team Providers Care Dietetic Tech Name Role Phone Génesis Mann MD Primary Care Provider Reason for Visit * (Routine) - Closed Specialty Diagnoses / Procedures Referred By Contac t Referred To Contact Radiology Diagnoses Neck mass Procedures Request For 2nd Read CT Neck Génesis Mann MD [address] [place] [address] Referral ID Status Reason Start Date Expiration Date Visits Re quested Visits Authorized [id number] Closed 01/03/2021 01/03/2022 1 1 Encounter Details Date Type Department Care Team (Late st Contact Info) Description 01/03/2021 5:00 PM EDT Ancillary Procedure Radiology Library at [facility] [place] [address] Génesis Mann MD [address] [place], [place] [address] Neck mass Social History Tobacco Use Types [...] PM EST TH Visit (TeleHealth) [place] [address] Inga Jameson MD [facility] [place] [address] documented as of this encounter Procedures Procedure [...] who have questions please contact the health respiratory care assistant that requested your imaging first. ? Narrative 01/03/2021 5:06 PM EDT EXAMINATION: REQUEST FOR 2ND READ CT NECK CLINICAL HISTORY: RT SIDED NECK MASS H/O THYROID CA. ? ENLARGED LT PARATID GLAND ON EXAM, SUBJECTIVE FULLNESS LT SIDE OF NECK WITH SOME ASSOCIATED SWALLOWING DIFFICULTY ; Sending Institution [facility]; Date of exam 20201205; I believe a reinterpretation of this exam may alter care of Patient. Yes TECHNIQUE: CT of the neck with contrast performed at [facility] on 12/05/2020 COMPARISON: None FINDINGS: There is [...] WITH SOME ASSOCIATEDSWALLOWING DIFFICULTY ; Sending Institution [facility]; Date of exam [id number]; I believe a reinterpretation of this exam may alter care ofPatient. Yes TECHNIQUE: CT of the neck with contrast performed at [facility] on 12/05/2020 COMPARISON: None FINDINGS: There [...] patients who have questions please contactthe health respiratory care assistant that requested your imaging first. Génesis Mann MD IMG OUTSIDE [facility] ORDERABLES documented in this encounter Visit Diagnoses Diagnosis Neck mass Swelling, mass, or lump in head and neck documented in this encounter Care Teams Dietetic Tech Relationship Specialty Start Date End Date Génesis Mann MD [address] [place] [address] PCP - General Family Medicine 02/07/19 documented as of this encounter
--- OUTSIDE RECORDS SUMMARY | 2024-05-30 22:09 | XMS_ITS | Encounter Summary ---
Author Organization [facility] [place] [address] Care Team Providers Care Multi Sensor Operator Name Role Phone Génesis Mann MD Primary Care Provider [phone] Encounter Details Date Type Department Care Team (Late st Contact Info) Description 12/05/2020 Ancillary Procedure Radiology Library at [facility] [place] [phone] Génesis Mann MD [address] [place] [address] Social History Tobacco Use Types Packs/Day Years [...] PM EST TH Visit (TeleHealth) Gastroenterology at [facility] [place] [address] Inga Jameson MD [facility] [place] [address] documented as of this encounter Procedures Procedure Name Priority Date/Time Associated Diagnosis Comments FILM LIBRARY - STORAGE ONLY CT NECK Routine 12/05/2020 12:00 AM EDT documented in this encounter Results * Film Library- Storage Only CT Neck (12/05/2020 12:00 AM EDT) Narrative RAD - 12/21/2020 9:21 PM EDT This exam is auto-finalizing. It's purpose is for storage only. Génesis Mann MD G FILM LIBRARY ORD ERABLES Performing Organization Address City/State/[facility] Co de Phone Number [place], [place] documented in this encounter Visit Diagnoses Not on filedocumented in this encounter Care Teams Multi Sensor Operator Relationship Specialty Start Date End Date Génesis Mann MD [address] [place] [address] PCP - General Family Medicine 02/07/19 documented as of this encounter
--- OUTSIDE RECORDS SUMMARY | 2024-05-30 22:09 | XMS_ITS | Encounter Summary ---
[place] [address] Care Team Providers Care Nissan Sales Consultant Name Role Phone Génesis Mann MD Primary Care Provider [phone] Encounter Details Date Type Department Care Team (Late st Contact Info) Description 12/06/2020 Telephone [place] [address] Dedra Kruger Social History Tobacco Use Types [...] PM EST TH Visit (TeleHealth) [place] [address] Inga Jameson MD [facility] [place] [address] documented as of this encounter Visit Diagnoses Not on filedocumented in this encounter Care Teams Nissan Sales Consultant Relationship Specialty Start Date End Date Génesis Mann MD [address] [place] [address] PCP - General Family Medicine 02/07/19 documented as of this encounter
--- OUTSIDE RECORDS SUMMARY | 2024-05-30 22:09 | XMS_ITS | Encounter Summary ---
Author Organization [facility] [place] [address] Care Team Providers Care Meter/Relay Craftsman Name Role Phone Génesis Mann MD Primary Care Provider [phone] Encounter Details Date Type Department Care Team (Latest Contact Info) Description 12/10/2023 8:30 AM EDT TH Visit (TeleHealth) [place] [address] Inga Jameson MD [facility] [place] [address] History of Helicobacter pylori infection Social History [...] telemedicine visit. The patient was located in [place] at the time of their visit. Approximate time in review of records and documentation 5 minutes. Approximate total time devoted to this single encounter on the day of the encounter: 35 minutes Inga Jameson [place] [address] documented in this encounter Plan of Treatment Upcoming Encounters Date Type Department Care Team (Late st Contact Info) Description 06/16/2024 2:30 PM EST TH Visit (TeleHealth) [place] [address] Inga Jameson MD [facility] [place] [address] documented as of this encounter Visit Diagnoses Diagnosis History of Helicobacter pylori infection Personal history of other infectious and parasitic disease documented in this encounter Care Teams Meter/Relay Craftsman Relationship Specialty Start Date End Date Génesis Mann MD [address] [place] [address] PCP - General Family Medicine 02/07/19 documented as of this encounter
--- OUTSIDE RECORDS SUMMARY | 2024-05-30 22:09 | XMS_ITS | Encounter Summary ---
Author Organization [facility] [place] [address] Care Team Providers Care Rounding Machine Tender Name Role Phone Génesis Mann MD Primary Care Provider [phone] Reason for Visit * Reason Comments Allergies * Allergy Testing (Routine) - Closed Specialty Diagnoses / Procedures Referred By Contac t Referred To Contact Allergy Diagnoses Allergy to penicillin Génesis Mann MD [address] [place] [address] [facility] [place]ergy [address] [place] [address] Referral ID Status Reason Start Date Expiration Date V isits Requested Visits Authorized [id number] Closed Consult, Test & Treat PCP Updated and/or Approved 04/30/2023 04/29/2024 6 6 Encounter Details Date Type Department Care Team (Latest Contact Info) Description 08/10/2023 3:30 PM EDT [place] [address] Teodora Churchill MD [facility] [address] [facility] [address] Penicillin allergy; Adverse effect of [...] 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 [...] PM EST TH Visit (TeleHealth) [place] [address] Inga Jameson MD [facility] [place] [address] documented as of this encounter Visit Diagnoses Diagnosis Penicillin allergy Other drug allergy Adverse effect of penicillin, initial encounter Angioedema, initial encounter Allergy to cephalosporin Other drug allergy documented in this encounter Care Teams Rounding Machine Tender Relationship Specialty Start Date End Date Génesis Mann MD [address] [place] [address] PCP - General Family Medicine 02/07/19 documented as of this encounter
--- OUTSIDE RECORDS SUMMARY | 2024-05-30 22:10 | XMS_ITS | Encounter Summary ---
[place] [address] Care Team Providers Care Unit Educator Name Role Phone Génesis Mann MD Primary Care Provider [phone] Encounter Details Date Type Department Care Team (Late st Contact Info) Description 07/05/2020 Telephone [place] [phone] Kranthi Chambers Social History Tobacco Use Types [...] it can be handled by: Any Endoscopy Senior Operations Analyst documented in this encounter Plan of Treatment Upcoming Encounters Date Type Department Care Team (Late st Contact Info) Description 06/16/2024 2:30 PM EST TH Visit (TeleHealth) [place] [address] Inga Jameson MD [facility] [place] [address] documented as of this encounter Visit Diagnoses Not on filedocumented in this encounter Care Teams Unit Educator Relationship Specialty Start Date End Date Génesis Mann MD [address] [place] [address] PCP - General Family Medicine 02/07/19 documented as of this encounter
--- OUTSIDE RECORDS SUMMARY | 2024-05-30 22:10 | XMS_ITS | Encounter Summary ---
Author Organization Formerly [facility] [address] Care Team Providers Care Ornamental Iron Worker Helper Name Role Phone Clive Shi Primary Care Provider [phone] Reason for Visit * Auth/Cert Specialty Diagnoses / Procedures Referred By Contac t Referred To Contact Diagnoses GERD, esophageal ring, hx H. pylori. Dilation and biopsies please. Procedures PRO UPPER GI ENDOSCOPY, DIAGNOSTIC EGD, UPPER GI ENDOSCOPY Referral ID Status Reason Start Date Expiration Date Visits Re quested Visits Authorized [id number] 1 1 Encounter Details Date Type Department Care Team (Late st Contact Info) Description 09/30/2016 10:00 AM EDT - 09/30/2016 11:00 AM EDT [place] [address] Christiano Kidd MD [facility] [place] [address] EGD WITH BIOPSY (WRVU 2.39) Social History [...] through Care Everywhere. * ESOPHAGEAL DILATION: POST-OP (PARAGUAYAN) documented in this encounter Medications at Time [...] PM EST TH Visit (TeleHealth) [place] [address] Inga Jameson MD [facility] [place] [address] documented as of this encounter Procedures Procedure [...] Report (09/30/2016 10:37 AM EDT) Final Diagnosis [id number] ?Location: 4; [facility]; A The signing pathologist has (i) examined [...] sing: (T1) ??gregorio 10/01/2016 11:16 AM EDT [facility] GI Biopsy 09/30/2016 10:3 7 AM EDT 09/30/2016 10:37 AM EDT GI Biopsy 09/30/2016 10:3 7 AM EDT 09/30/2016 10:37 AM EDT GI Biopsy 09/30/2016 10:3 7 AM EDT 09/30/2016 10:37 AM EDT Christiano Kidd MD PATHOLOGY/CYTOLOGY O RDERABUDDY [facility] [place] [address] * Specimen to Pathology (surgical or derm) (09/30/2016 10:37 AM EDT) AP Specimen 09/30/2016 10:3 7 AM EDT 09/30/2016 10:37 AM EDT Narrative [facility] - 09/30/2016 10:37 AM EDT Specimen requisition ordered. ??Separate Pathology report to follow Christiano Kidd MD PATHOLOGY/CYTOLOGY O TRACIE Performing Organization Address [facility] [place] [address] * Specimen to Pathology (surgical or derm) (09/30/2016 10:37 AM EDT) AP Specimen 09/30/2016 10:3 7 AM EDT 09/30/2016 10:37 AM EDT Narrative [facility] - 09/30/2016 10:37 AM EDT Specimen requisition ordered. ??Separate Pathology report to follow Christiano Kidd MD PATHOLOGY/CYTOLOGY O TRACIE Performing Organization Address [facility] [place] [address] * Specimen to Pathology (surgical or derm) (09/30/2016 10:37 AM EDT) AP Specimen 09/30/2016 10:3 7 AM EDT 09/30/2016 10:37 AM EDT Narrative [facility] - 09/30/2016 10:37 AM EDT Specimen requisition ordered. ??Separate Pathology report to follow Christiano Kidd MD PATHOLOGY/CYTOLOGY O TRACIE Performing Organization Address [facility] [place] [address] * UPPER GI ENDOSCOPY (09/30/2016 9:47 AM EDT) UPPER GI ENDOSCOPY [facility] Endoscopy ___ Procedure Date: 09/30/2016 9:47 AM ? Patient Name: Marcelina Hanna ? Date of : 1960 ? Age: 56 ? Order #: [id number] ? Instrument Name: [id number] ? ___ Procedure: ? Upper GI endoscopy Indications: ? Epigastric abdominal pain, Dyspepsia, ? Dysphagia, Heartburn, currently on qd ? PPI Providers: ? Christiano Kidd MD, Rosy Orr ? Hilda Bateman, Animation Director Referring MD: ?Yessy Olivera ? Sieglinger Medicines: ? Midazolam 5 mg [...] mg/mL multi-dose injection ONCE PRN, Starting on e 09/30/16 at 1014, Until Thu09/30/16 at 1411, [...] RN) documented in this encounter Care Teams Ornamental Iron Worker Helper Relationship Specialty Start Date End Date Clive Shi PA [address] [place] [address] PCP - General General Internal Medicine 09/10/1602/06 documented as of this encounter
--- OUTSIDE RECORDS SUMMARY | 2024-05-30 22:10 | XMS_ITS | Encounter Summary ---
[place] [address] Care Team Providers Care Core Winder Machine Operator Name Role Phone Génesis Mann MD Primary Care Provider [phone] Reason for Visit * Reason Comments Genetic Evaluation * Consultation (Routine) - Specialty Diagnoses / Procedures Referred By Contac t Referred To Contact Hematology and Oncology Diagnoses Family history of malignant neoplasm of ovary FAMILY HX OF CANCER OVARY Génesis Mann MD [address] [place] [address] [facility] [address] [place] [phone] Referral ID Status Reason Start Date Expiration Date V isits Requested Visits Authorized [id number] Consult, Test & Treat Connection Center PCP Updated and/or Approved 01/20/2020 01/19/2021 3 3 Encounter Details Date Type Department Care Team (Latest Contact Info) Description 04/05/2020 11:00 AM EST TH Visit (TeleHealth) Hematology [place] [address] Lindsay Myrick, [facility] Family history of pancreatic cancer; FH: ovarian [...] gene analysis 2018 ??? Colorectal Cancer Other MGSeda's brother ??? Stomach Cancer Other MGSeda's sister, lived to 85 ??? Cancer Other MGM's brother - bone cancer ??? Prostate Cancer Paternal Uncle at 65 from other causes ??? Colorectal Cancer Paternal Uncle 67 Maternal ethnic background is Dominican, [place]ill[place]. Paternal ethnic background is Norwegian. Not sure if there is any Ashkenazi Jew heritage. Genetic risk assessment Based on the [...] the family. Marcelina opted for testing with [facility] Multi-Cancer Panel, a next generationsequencing panel that simultaneously analyzes 84 genes, including BRCA1 and BRCA2, that contribute to increased risk for cancer. Marcelina was consented. Her blood sample was drawn and sent to [facility]. Testing will take up to 3 weeks. [...] PM EST TH Visit (TeleHealth) [place] [address] Inga Jameson MD [facility] [place] [address] documented as of this encounter Visit Diagnoses Diagnosis Family history of pancreatic cancer Family history of malignant neoplasm of gastrointestinal tract FH: ovarian cancer in first degree relative documented in this encounter Care Teams Core Winder Machine Operator Relationship Specialty Start Date End Date Génesis Mann MD [address] [place] [address] PCP - General Family Medicine 02/07/19 documented as of this encounter
--- OUTSIDE RECORDS SUMMARY | 2024-05-30 22:10 | XMS_ITS | Encounter Summary ---
[place] [address] Care Team Providers Care Funeral Workers Name Role Phone Clive Shi Primary Care Provider [phone] Reason for Visit * Reason Comments Follow-up Encounter Details Date Type Department Care Team (Late st Contact Info) Description 01/16/2017 11:00 AM EDT Office [place] [address] Yessy Casillas, PSYCH SOCIAL WORKER [address] [place] [address] H. 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 - 29 years. Has 3 kids. HABITS Denies tobacco use. Occasional alcohol use 1-2/weeks. Denies using other substances. Family History Mom is , age: 86 (ovarian cancer) Dad is , age: 82 (pancreatic cancer) Family history of stomach issues. Recent Tests 1. EGD 2007 ([place]); H. Pylori. Hiatal hernia. 2. Barium Swallow and upper GI ([employer]) 09/18/16; moderate sized hatus hernia beneat a [...] of Gastroenterology & Hepatology [facility] ?? documented in this encounter Plan of Treatment Upcoming Encounters Date Type Department Care Team (Late st Contact Info) Description 06/16/2024 2:30 PM EST TH Visit (TeleHealth) [place] [address] Inga Jameson MD [facility] [place] [address] documented as of this encounter Visit Diagnoses Diagnosis H. pylori infection Helicobacter pylori (H. pylori) Gastroesophageal reflux disease, esophagitis presence not specified Bloating Flatulence, eructation, and gas pain Dysphagia, unspecified type Constipation, unspecified constipation type documented in this encounter Care Teams Funeral Workers Relationship Specialty Start Date End Date Clive Shi PA [address] [place] [address] PCP - General General Internal Medicine 09/10/1602/06 documented as of this encounter
--- OUTSIDE RECORDS SUMMARY | 2024-05-30 22:10 | XMS_ITS | Encounter Summary ---
Author Organization [facility] [place] [address] Care Team Providers Care Towing Pilot Name Role Phone Génesis Mann MD Primary Care Provider [phone] Encounter Details Date Type Department Care Team (Late st Contact Info) Description 07/12/2020 [place] [address] Sammi Palmer Social History Tobacco Use Types [...] - 07/12/2020 11:56 AM EST Marcelina Hanna [id number] Diagnosis/Indication: [place] 1. Have you ever had a/an Colonoscopy before? Yes- [facility] in [place] If yes, did you have any problems [...] PM EST TH Visit (TeleHealth) [place] [address] Inga Jameson MD [facility] [place] [place] [address] documented as of this encounter Visit Diagnoses Not on filedocumented in this encounter Care Teams Towing Pilot Relationship Specialty Start Date End Date Génesis Mann MD [address] [place] [address] PCP - General Family Medicine 02/07/19 documented as of this encounter
--- OUTSIDE RECORDS SUMMARY | 2024-05-30 22:10 | XMS_ITS | Encounter Summary ---
Author Organization [facility] Address [address] [place] [address] Care Team Providers Care Leather Carver Name Role Phone Unavailable Primary Care Provider Unavailabl e Encounter Details Date Type Department Care Team (Late st Contact Info) Description 10/01/2022 Lab Requisition [facility] Pathology & Laboratory Medicine - [facility] [address] [place] [address] Outr Resulting Lab, Provider Social History Tobacco Use Types Packs/Day Years Used Date Smoking Tobacco: Never Assessed Comments Unknown Sex and Gender Information Value Date Recorded Sex Assigned at Not on file Legal Sex Female 20:54 EDT Gender Identity Not on file Sexual Orientation Not on file documented as of this encounter Plan of Treatment Not on file documented as of this encounter Procedures Procedure Name Priority Date/Time Associated Diagnosis Comments LYME AB Routine 10/01/2022 11:07 EDT documented in this encounter Results * LYME AB (10/01/2022 11:07 EDT) Lyme Ab Negative Negative 10/02/2022 9:41 EDT [facility] Blood VENOUS BLOOD / Unknown 10/01/2022 11:07 EDT 10/01/2022 21:21 EDT us Provider Outr Resulting Lab IMMUNOLOGY AND SEROL OGY ORDERABLES Final Result [facility] [address] [place] [address] documented in this encounter Visit Diagnoses Not on filedocumented in this encounter
--- OUTSIDE RECORDS SUMMARY | 2024-05-30 22:10 | XMS_ITS | Encounter Summary ---
[place] [address] Care Team Providers Care Head Sampler Name Role Phone Clive Shi Primary Care Provider [phone] Encounter Details Date Type Department Care Team (Late st Contact Info) Description 10/06/2016 Telephone [place] [phone] Yessy Casillas, MANHOLE STRIPPER [address] [place] [address] Social History Tobacco Use Types Packs/Day Years [...] Miscellaneous Notes * Telephone Encounter - Yessy Casillas APRN - 10/06/2016 3:07 PM EDT We discussed [...] PM EST TH Visit (TeleHealth) [place] [address] Inga Jameson MD [facility] [place] [address] documented as of this encounter Visit Diagnoses Diagnosis H. pylori infection Helicobacter pylori (H. pylori) documented in this encounter Care Teams Head Sampler Relationship Specialty Start Date End Date Clive Shi PA [address] [place] [address] PCP - General General Internal Medicine 09/10/1602/06 documented as of this encounter
--- OUTSIDE RECORDS SUMMARY | 2024-05-30 22:10 | XMS_ITS | Encounter Summary ---
Author Organization [facility] [place] [address] Care Team Providers Care Medical Transcription Supervisor Name Role Phone Génesis Mann MD Primary Care Provider [phone] Encounter Details Date Type Department Care Team (Late st Contact Info) Description 10/24/2020 Orders Only [place] [address] Inga Jameson MD [facility] [place] [address] H. pylori infection Social History Tobacco Use [...] PM EST TH Visit (TeleHealth) [place] [phone] Inga Jameson MD [facility] [place] [address] documented as of this encounter Visit Diagnoses Diagnosis H. pylori infection Helicobacter pylori (H. pylori) documented in this encounter Care Teams Medical Transcription Supervisor Relationship Specialty Start Date End Date Génesis Mann MD [address] [place] [address] PCP - General Family Medicine 02/07/19 documented as of this encounter
--- OUTSIDE RECORDS SUMMARY | 2024-05-30 22:10 | XMS_ITS | Encounter Summary ---
Author Organization [facility] [place] [address] Care Team Providers Care Blind Lacer Name Role Phone Génesis Mann MD Primary Care Provider [phone] Reason for Visit * Consultation (Routine) - Specialty Diagnoses / Procedures Referred By Contac t Referred To Contact Nephrology Diagnoses Atrophy of kidney (terminal) Génesis Mann MD [address] [place] [address] [facility] Nephrology [address] [place] [phone] Referral ID Status Reason Start Date Expiration Date V isits Requested Visits Authorized [id number] Consult, Test & Treat Connection Center PCP Updated and/or Approved 02/09/2020 02/08/2021 3 3 Encounter Details Date Type Department Care Team (Latest Contact Info) Description 03/05/2020 1:00 PM EDT Office Visit [place] [address] William Sharif MD [facility] [place] [address] Abnormal radiologic findings on diagnostic [...] 1:00 PM EDT Hypertension/Nephrology Consultation Marcelina Swan [id number] 1960 ID: [id number] y.o. 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, current nonsmoker, occasional ETOH, no drugs Review [...] PM EST TH Visit (TeleHealth) [place] [address] Inga Jameson MD [facility] [place] [address] documented as of this encounter Procedures Procedure Name Priority Date/Time Associated Diagnosis Comments HC CREATININE - NON BLOOD Routine 03/05/2020 4:24 PM EDT Abnormal radiologic findings on diagnostic imaging of renal pelvis, ureter, or bladder documented in this encounter Results * Protein/Creatinine Ratio, urine (03/05/2020 4:24 PM EDT) Creatinine, Urine 48 mg/dL [facility] Protein, Urine <6 0 - 12 mg/dL [facility] Protein / Creatinine Ratio, Urine <0.1 ratio [facility] Urine specimen (specimen) 03/05/2020 4:24 PM EDT 03/05/2020 4:24 PM EDT Narrative Resulting Agency Comment Spec In Lab William Sharif MD URINE ORDERABLES [facility] [place] [address] documented in this encounter Visit Diagnoses Diagnosis Abnormal radiologic findings on diagnostic imaging of renal pelvis, ureter, or bladder Microscopic hematuria documented in this encounter Care Teams Blind Lacer Relationship Specialty Start Date End Date Génesis Mann MD [address] [place] [address] PCP - General Family Medicine 02/07/19 documented as of this encounter
--- OUTSIDE RECORDS SUMMARY | 2024-05-30 22:10 | XMS_ITS | Encounter Summary ---
Author Organization [facility] [place] [address] Care Team Providers Care Receivable Executive Name Role Phone Génesis Mann MD Primary Care Provider [phone] Encounter Details Date Type Department Care Team (Late st Contact Info) Description 01/30/2020 Ancillary Procedure Radiology Library at [facility] [place] [phone] Génesis Mann MD [address] [place] [address] Social History Tobacco Use Types Packs/Day Years [...] Contact Info) Description 06/16/2024 2:30 PM EST Visit (TeleHealth) Gastroenterology at [facility] [place] [address] Inga Jameson MD [facility] [place] [address] documented as of this encounter Procedures Procedure Name Priority Date/Time Associated Diagnosis Comments FILM LIBRARY STORAGE ONLY ULTRASOUND STUDY Routine 01/30/2020 12:00 AM EDT documented in this encounter Results * Film Library- Storage Only Ultrasound Study (01/30/2020 12:00 AM EDT) Narrative RAD - 03/01/2020 4:51 PM EDT This exam is auto-finalizing. It's purpose is for storage only. Génesis Mann MD IMG FILM LIBRARY ORD ERABLES [place], [place] documented in this encounter Visit Diagnoses Not on filedocumented in this encounter Care Teams Receivable Executive Relationship Specialty Start Date End Date Génesis Mann MD [address] [place] [address] PCP - General Family Medicine 02/07/19 documented as of this encounter
--- OUTSIDE RECORDS SUMMARY | 2024-05-30 22:10 | XMS_ITS | Encounter Summary ---
[place] [address] Care Team Providers Care Chief Procurement Officer Name Role Phone Génesis Mann MD Primary Care Provider [phone] Encounter Details Date Type Department Care Team (Late st Contact Info) Description 06/28/2020 Telephone [place] [phone] Kranthi Chambers Social History Tobacco Use Types [...] it can be handled by: Any Endoscopy Striper documented in this encounter Plan of Treatment Upcoming Encounters Date Type Department Care Team (Late st Contact Info) Description 06/16/2024 2:30 PM EST TH Visit (TeleHealth) [place] [address] Inga Jameson MD [facility] [place] [address] documented as of this encounter Visit Diagnoses Not on filedocumented in this encounter Care Teams Chief Procurement Officer Relationship Specialty Start Date End Date Génesis Mann MD [address] [place] [address] PCP - General Family Medicine 02/07/19 documented as of this encounter
--- OUTSIDE RECORDS SUMMARY | 2024-05-30 22:10 | XMS_ITS | Encounter Summary ---
[place] [address] Care Team Providers Care Position Classification Manager Name Role Phone Clive Shi Primary Care Provider [phone] Encounter Details Date Type Department Care Team (Late st Contact Info) Description 10/03/2016 Telephone [place] [phone] Yessy Casillas, CASUALTY UNDERWRITER [address] [place] [address] Social History Tobacco Use Types Packs/Day Years [...] Notes * Telephone Encounter - Yessy Casillas, CASUALTY UNDERWRITER - 10/03/2016 9:36 AM EDT We discussed [...] PM EST TH Visit (TeleHealth) [place] [address] Inga Jameson MD [facility] [place] [address] documented as of this encounter Visit Diagnoses Diagnosis H. pylori infection Helicobacter pylori (H. pylori) documented in this encounter Care Teams Position Classification Manager Relationship Specialty Start Date End Date Clive Shi PA [address] [place] [address] PCP - General General Internal Medicine 09/10/1602/06 documented as of this encounter
--- OUTSIDE RECORDS SUMMARY | 2024-05-30 22:10 | XMS_ITS | Referral Summary ---
Author Organization [facility] Address [address] [place] [address] Care Team Providers Care Entry Level Project Engineer Name Role Phone Unavailable Primary Care Provider [...]
--- OUTSIDE RECORDS SUMMARY | 2024-05-30 22:10 | XMS_ITS | Encounter Summary ---
Author Organization [facility] [place] [address] Care Team Providers Care Director Erp Name Role Phone Clive Shi Primary Care Provider [phone] Encounter Details Date Type Department Care Team (Latest Contact Info) Description 09/18/2016 - 09/18/2016 11:59 PM EDT Hospital Encounter Radiology Library at [facility] [place] [address] Mark Oliva MD [facility] [place] [address] Pain Discharge Disposition: Home Social History Tobacco Use Types Packs/Day Years Used Date Smoking Tobacco: Never Assessed Sex and Gender Information Value Date Recorded Sex Assigned at Female 05/05/2024 7:13 AM EST Gender Identity Female 05/05/2024 7:13 AM EST Sexual Orientation Straight 05/05/2024 7: 13 AM EST documented as of this encounter Medications at [...] PM EST TH Visit (TeleHealth) [place] [address] Inga Jameson MD [facility] [place] [place] [address] documented as of this encounter Procedures Procedure Name Priority Date/Time Associated Diagnosis Comments FILM LIBRARY STORAGE ONLY DX GI STUDY Routine 09/18/2016 12:00 AM EDT Pain documented in this encounter Results * Film Library- Storage Only DX GI Study (09/18/2016 12:00 AM EDT) Narrative [facility] - 09/24/2016 4:48 PM EDT This exam is for storage only and is auto-finalizing. Mark Oliva MD IMG FILM LIBRARY ORD ERABLES [place], [place] documented in this encounter Visit Diagnoses Diagnosis Pain Generalized pain documented in this encounter Care Teams Director Erp Relationship Specialty Start Date End Date Clive Shi PA [address] [place] [address] PCP - General General Internal Medicine 09/10/1602/06 documented as of this encounter
--- OUTSIDE RECORDS SUMMARY | 2024-05-30 22:10 | XMS_ITS | Encounter Summary ---
[place] [address] Care Team Providers Care Medical Reception Specialist Name Role Phone Clive Shi Primary Care Provider [phone] Reason for Visit * Consultation (Routine) - Closed Specialty Diagnoses / Procedures Referred By Contac t Referred To Contact Gastroenterology Diagnoses GERD Clive Shi PA [address] [place] [address] [facility] [place] [address] [address] Referral ID Status Reason Start Date Expiration Date V isits Requested Visits Authorized [id number] Closed Consult, Test & Treat Connection Center 09/10/2016 09/10/2017 1 1 Encounter Details Date Type Department Care Team (Latest Contact Info) Description 09/26/2016 2:00 PM EDT Office [place] [phone] Yessy Casillas, OVERLOCK OPERATOR [address] [place] [address] Gastroesophageal reflux disease, esophagitis presence not specified; [...] Casillas APRN - 09/26/2016 2:00 PM EDT Export Packer: Yessy Casillas APRN PCP: BYRON King Requesting Provider: BYRON King Reason for Consultation This is a 56 y.o. female with a history significant for difficulty swallowing, osteopenia, hiatal hernia, metabolic syndrome, and hypothyroidism. I am seeing her as a new patient today in consult forGERD. 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 - 29 years. Has 3 kids. HABITS Denies tobacco use. Occasional alcohol use 1-2/weeks. Denies using other substances. Family History Mom is , age: 86 (ovarian cancer) Dad is , age: 82 (pancreatic cancer) Family history of stomach issues. Recent Tests 1. EGD 2007 ([place]); H. Pylori. Hiatal hernia. 2. Barium Swallow and upper GI ([email or web address]) 09/18/16; moderate sized hatus hernia beneat a non-sobsturcting lower esophageal ring. Evidence of GERD. Otherwise unremarkable. 3. Colonoscopy 2010; normal Medication/Diet Trials 1. Omeprazole 40mg once daily. Physical Exam: Vitals: 04/28/17 1413 BP: 125/82 Pulse: 88 Height: 5'8 [...] 3:33 PM Section of Gastroenterology & Hepatology [facility] ?? documented in this encounter Plan of Treatment Upcoming Encounters Date Type Department Care Team (Late st Contact Info) Description 06/16/2024 2:30 PM EST TH Visit (TeleHealth) [place] [address] Inga Jameson MD [facility] [place] [address] Scheduled Orders Name Type Priority Associated Diagnoses [...] pain documented in this encounter Care Teams Medical Reception Specialist Relationship Specialty Start Date End Date Clive Shi PA [address] [place] [address] PCP - General General Internal Medicine 09/10/1602/06 documented as of this encounter
--- OUTSIDE RECORDS SUMMARY | 2024-05-30 22:10 | XMS_ITS | Clinical Summary ---
Author Organization [facility] Address [address] [place] [address] Care Team Providers Care Utilization Reviewer Name Role Phone Unavailable Primary Care Provider [...] Last Done Comments Hepatitis C Screen 1960 Fall Risk Screening 2023 COVID-19 Vaccine (2023- season) 2024 RSV Immunization ( o r 60+ Years) (1 - 1-dose 75+ series) 2033
--- OUTSIDE RECORDS SUMMARY | 2024-05-30 22:10 | XMS_ITS | Encounter Summary ---
[place] [address] Care Team Providers Care Petroleum Refining Equipment Operator Name Role Phone Génesis Mann MD Primary Care Provider [phone] Reason for Visit * Reason Onset Date Comments Results 04/17/2020 Encounter Details Date Type Department Care Team (Late st Contact Info) Description 04/17/2020 Telephone Hematology [place] [phone] Lindsay Myrick LGC Results Social History Tobacco Use Types Packs/Day [...] PM EST TH Visit (TeleHealth) [place] [address] Inga Jameson MD [facility] [place] [address] documented as of this encounter Visit Diagnoses Not on filedocumented in this encounter Care Teams Petroleum Refining Equipment Operator Relationship Specialty Start Date End Date Génesis Mann MD [address] [place] [address] PCP - General Family Medicine 02/07/19 documented as of this encounter
--- OUTSIDE RECORDS SUMMARY | 2024-05-30 22:10 | XMS_ITS | Encounter Summary ---
Author Organization [facility] Address [address] [place] [address] Care Team Providers Care Black Studies Professor Name Role Phone Unavailable Primary Care Provider Unavailabl e Encounter Details Date Type Department Care Team (Late st Contact Info) Description 11/19/2020 Lab Requisition [facility] Pathology & Laboratory Medicine - [facility] [address] [place] [address] Outr Resulting Lab, Provider Social History Tobacco [...] Pylori Positive(A ) Negative 11/20/2020 12:42 EDT [facility] Feces SPECIMEN FROM RECTUM / Unknown 11/19/2020 11:53 EDT 11/19/2020 21:38 EDT Narrative [facility] - 11/20/2020 12:42 EDT Results were obtained with the [employer] [place] [employer] JOHNIE. us Provider Outr Resulting Lab MICROBIOLOGY - GENER AL ORDERABLES Final Result [facility] [address] [place] [address] documented in this encounter Visit Diagnoses Not on filedocumented in this encounter
--- OUTSIDE RECORDS SUMMARY | 2024-05-30 22:10 | XMS_ITS | Encounter Summary ---
Author Organization [facility] Address [address] [place] [address] Care Team Providers Care Knifer Up Name Role Phone Unavailable Primary Care Provider Unavailabl e Encounter Details Date Type Department Care Team (Latest Contact Info) Description 04/02/2022 Lab Requisition [facility] Pathology & Laboratory Medicine - [facility] [address] [place] [address] Génesis Mann MD [address] [place] [id number] Encounter for gynecological examination (general) (routine) without [...] types, PCR Negative Negative 04/14/2022 17:45 EST [facility] Comment:No E6 or E7 mRNA is detected from HPV types 16,18,31,33,35,39,45,51,52,56,58,59,66, and 68 by affirmative action specialist mediated amplification. Papanicolaou smear specimen (specimen) CERVIX UTERI STRUCTURE / Unknown 04/01/2022 11:00 EDT 04/10/2022 15:19 EST Génesis Mann MD MICROBIOLOGY - GENERAL ORDERABL ES Final Result [facility] [address] [place] [address] * PAP TEST (04/01/2022 11:00 EDT) Specimens A. Cervix and/or Endocervix , ThinPrep Imaging System with Manual Evaluation 04/14/2022 17:45 [facility] Specimen Adequacy Satisfactory for Evaluation - transformation zone component present 04/14/2022 17:45 [facility] General Categorization Negative for intraepithelial lesion or malignancy 04/14/2022 17:45 [facility] Attestation . 04/14/2022 17:45 [facility] at 1745 Clinical History See below 04/14/20 17:45 [facility] HPV The result for the Human Papillomavirus (HPV) Detection-High Risk Types is Negative. No E6 or E7 mRNA is detected from HPV types 16,18,31,33,35,39 ,45,51,52,56,58,5 9,66, and 68 by affirmative action specialist mediated amplification.Aliya ting was performed on specimen [id number] and was resulted on 04/14/2022 1632 EST by ELIZABET, LAB INSTRUMENT RESULTS IN 04/14/2022 17:45 [facility] Performing Lab [facility] 04/14/2022 17:45 [facility] Scanned Images 04/14/2022 17:45 [facility] Papanicolaou smear specimen (specimen) CERVIX UTERI STRUCTURE / Unknown 04/01/2022 11:00 EDT 04/02/2022 9:42 EDT Génesis Mann MD PATHOLOGY ORDERABLES Final Resu lt [facility] [address] [place] [address] documented in this encounter Visit Diagnoses Diagnosis Encounter for gynecological examination (general) (routine) without abnormal findings documented in this encounter
--- OUTSIDE RECORDS SUMMARY | 2024-05-30 22:10 | XMS_ITS | Encounter Summary ---
Author Organization [facility] Address [address] [place] [address] Care Team Providers Care Window Shade Ring Sewer Name Role Phone Unavailable Primary Care Provider Unavailabl e Encounter Details Date Type Department Care Team (Late st Contact Info) Description 02/15/2024 Lab Requisition [facility] Pathology & Laboratory Medicine - [facility] [address] [place] [address] Outr Resulting Lab, Provider Social History Tobacco [...] Associated Diagnosis Comments H. PYLORI ANTIGEN Routine 02/15/2024 9:00 EDT documented in this encounter Results * (ABNORMAL) H. PYLORI ANTIGEN (02/15/2024 9:00 EDT) H. Pylori Positive( A) Negative 02/16/2024 12:33 EDT [facility] Comment:Indicates the presen ce of detectable H. pylori stool antigen. Feces SPECIMEN FROM RECTUM / Unknown 02/15/2024 9:00 EDT 02/15/2024 21:27 EDT Narrative [facility] - 02/16/2024 12:33 EDT New Liaison XL testing method used as of 03/23/2023 us Provider Outr Resulting Lab MICROBIOLOGY - GENER AL ORDERABLES Final Result [facility] [address] [place] [address] documented in this encounter Visit Diagnoses Not on filedocumented in this encounter
--- OUTSIDE RECORDS SUMMARY | 2024-05-30 22:10 | XMS_ITS | Encounter Summary ---
[place] [address] Care Team Providers Care Field Crops Harvest Machine Operator Name Role Phone Génesis Mann MD Primary Care Provider [phone] Reason for Visit * Reason Onset Date Comments Results 04/17/2020 Encounter Details Date Type Department Care Team (Late st Contact Info) Description 04/17/2020 Telephone Hematology [place] [phone] Lindsay Myrick LGC Results Social History Tobacco [...] Encounter - Lindsay Myrick LGC - 04/17/2020 4:57 PM EST This test result was discussed with the patient by phone. A copy of the test results have been scanned in the medical record and sent to Marcelina. A summary of the results is provided below. Please be advised that [place] law requires that all health care workers respect the confidentiality of this information and not pass it along to other health care providers, insurance companies, or indivi duals without the written permission of the patient. The Familial Cancer Program welcomes any questions about these matters. Our phone number is: [phone]. On 04/05/2020, Marcelina underwent genetic testing for a hereditary predisposition to cancers in eight major organ systems including breast, gynecologic, gastrointestinal, endocrine, genitourinary, skin,brain/nervous system, sarcoma and hematologic. Following are the results of this test. Result: [facility]'s Multi-Cancer Panel showed no mutation was detected. This means that Marcelina does not carrya mutation in the genes detectable by this test. The following 84 genes were evaluated for sequencechanges and exonic deletions/duplications: AIP, ALK, APC, HORACIO, AXIN2, BAP1, BARD1, BLM, BMPR1A, BRCA1, BRCA2, BRIP1, CASR, CDC73, CDH1, CDK4, CDKN1B, CDKN1C, CDKN2A (p14ARF), CDKN2A (t35BKU2F), CEBPA, CHEK2, CTNNA1, DICER1, DIS3L2, EGFR, EPCAM (Deletion/duplication testing only), FH, FLCN, GATA2, GPC3, GREM1 (Promoter region deletion/duplication testing only), HOXB13, HRAS, KIT, MAX, MEN1, MET, DC TF, (c.952G>A,P.Llh617Vem variant only), MLH1, MSH2, MSH3, MSH6, MUTYH, NBN, NF1, NF2, NTHL1, PALB2, PDGFRA, PHOX2B, PMS2, POLD1, POLE, POT1, XHBVB8H, PTCH1, PTEN, RAD50, RAD51C, RAD51D, RB1, RECQL4, RET, RUNX1, SDHA, SDHAF2, SDHB, SDHC, SDHD, SMAD4, SMARCA4, SMARCB1, SMARCE1, STK11, SUFU, TERC,TERT, ZIHI388, TP53, TSC1, TSC2, VHL, WRN, and WT1. A variant of uncertain significance (VUS) was detected in the following genes: MET c.1421C>A (p.Rug152Xdn). Mutations in this gene are associated with [...] young children who are deaf. PALB2 c.1814C>T (p.Tgc208Aft) . Mutations in this gene are associated with increased risk for breast, pancreatic and ovarian cancers. I reviewed the genetic test report from Marcelina's cousin who had breast cancer and testing with [employer] ([employer]s 47 gene Common Hereditary Cancers Panel in 2019. There isno mention of this PALB2 VUS in her report making it less likely that this could be related to the breast cancer in the family. Interpretation: This test did not identify an underlying genetic cause for the personal and family history of cancer. Possible explanations for this negative test result include: ?? Marcelina's cancer and the cancer in her family [...] the gene with no increased cancer risks. [employer] ([employer]) is continually collecting and analyzing their data, [...] and mailing address stay updated in the [facility] system, in order for us to reach [...] Periodic colonoscopy screening as recommended by Marcelina's mine car dispatcher. Skin cancer screening ?? Dermatologic/skin exams, as recommended by Marcelina's primary care trainer or etl consultant. documented in this encounter Plan of Treatment Upcoming Encounters Date Type Department Care Team (Late st Contact Info) Description 06/16/2024 2:30 PM EST TH Visit (TeleHealth) [place] [address] Inga Jameson MD [facility] [place] [address] documented as of this encounter Visit Diagnoses Not on filedocumented in this encounter Care Teams Field Crops Harvest Machine Operator Relationship Specialty Start Date End Date Génesis Mann MD [address] [place] [address] PCP - General Family Medicine 02/07/19 documented as of this encounter
--- OUTSIDE RECORDS SUMMARY | 2024-05-30 22:10 | XMS_ITS | Encounter Summary ---
Author [place] [address] Care Team Providers Care Director Of Cath Lab Name Role Phone Génesis Mann MD Primary Care Provider [phone] Encounter Details Date Type Department Care Team (Late st Contact Info) Description 03/30/2020 Notes Only Hematology [place] [address] Yaakov Caballero MD Social History Tobacco Use Types Packs/Day Years [...] PM EST TH Visit (TeleHealth) [place] [address] Inga Jameson MD [facility] [place] [address] documented as of this encounter Visit Diagnoses Not on filedocumented in this encounter Care Teams Director Of Cath Lab Relationship Specialty Start Date End Date Génesis Mann MD [address] [place] [address] PCP - General Family Medicine 02/07/19 documented as of this encounter
--- OUTSIDE RECORDS SUMMARY | 2024-05-30 22:10 | XMS_ITS | Encounter Summary ---
Author Organization [facility] [place] [address] Care Team Providers Care Movie Machine Operator Name Role Phone Clive Shi Primary Care Provider [phone] Reason for Visit * Auth/Cert Specialty Diagnoses / Procedures Referred By Contac t Referred To Contact Diagnoses GERD, esophageal ring, hx H. pylori. Dilation and biopsies please. Procedures PRO UPPER GI ENDOSCOPY, DIAGNOSTIC EGD, UPPER GI ENDOSCOPY Referral ID Status Reason Start Date Expiration Date Visits Re quested Visits Authorized [id number] 1 1 Encounter Details Date Type Department Care Team (Latest Contact Info) Description 09/30/2016 9:00 AM EDT - 09/30/2016 12:11 PM EDT Hospital Encounter [place] [address] Christiano Kidd MD [facility] [place] [address] Discharge Disposition: Home Social History Tobacco Use [...] through Care Everywhere. * ESOPHAGEAL DILATION: POST-OP (INDIAN) documented in this encounter Medications at Time [...] PM EST TH Visit (TeleHealth) [place] [address] Inga Jameson MD [facility] [place] [address] documented as of this encounter Procedures Procedure [...] Report (09/30/2016 10:37 AM EDT) Final Diagnosis [id number] ?Location: 4; [facility]; A The signing pathologist has (i) [...] sing: (T1) ??gregorio 10/01/2016 11:[address] [facility] GI Biopsy 09/30/2016 10:3 7 AM EDT 09/30/2016 10:37 AM EDT GI Biopsy 09/30/2016 10:3 7 AM EDT 09/30/2016 10:37 AM EDT GI Biopsy 09/30/2016 10:3 7 AM EDT 09/30/2016 10:37 AM EDT Christiano Kidd MD PATHOLOGY/CYTOLOGY O TRACIE [facility] [address] * Specimen to Pathology (surgical or derm) (09/30/2016 10:37 AM EDT) AP Specimen 09/30/2016 10:3 7 AM EDT 09/30/2016 10:[address] [facility] - 09/30/2016 10:37 AM EDT Specimen requisition ordered. ??Separate Pathology report to follow Christiano Kidd MD PATHOLOGY/CYTOLOGY O TRACIE Performing Organization Address [facility] [place] [address] * Specimen to Pathology (surgical or derm) (09/30/2016 10:37 AM EDT) AP Specimen 09/30/2016 10:3 7 AM EDT 09/30/2016 10:[address] [facility] - 09/30/2016 10:37 AM EDT Specimen requisition ordered. ??Separate Pathology report to follow Christiano Kidd MD PATHOLOGY/CYTOLOGY Tony HODGES Performing Organization Address [facility] [place] [address] * Specimen to Pathology (surgical or derm) (09/30/2016 10:37 AM EDT) AP Specimen 09/30/2016 10:3 7 AM EDT 09/30/2016 10:[address] [facility] - 09/30/2016 10:37 AM EDT Specimen requisition ordered. ??Separate Pathology report to follow Christiano Kidd MD PATHOLOGY/CYTOLOGY Tony HODGES Performing Organization Address [facility] [place] [address] * UPPER GI ENDOSCOPY (09/30/2016 9:47 AM EDT) UPPER GI ENDOSCOPY [facility] Endoscopy ___ Procedure Date: 09/30/2016 9:47 AM ? Patient Name: Marcelina Hanna ? Date of : 1960 ? Age: 56 ? Order #: [id number] ? Instrument Name: [id number] ? ___ Procedure: ? Upper GI endoscopy Indications: ? Epigastric abdominal pain, Dyspepsia, ? Dysphagia, Heartburn, currently on qd ? PPI Providers: ? Christiano Kidd MD, Rosy Orr ? Hilda Bateman, Wharf Builder Referring MD: ?Clive Shi, Yessy Tellez ? [...] EDT Clive [facility] Performing Organization Address City/State/[facility] Co de Phone Number [employer] documented in this encounter Visit Diagnoses [...] Rosy Bateman RN)1023 (Given - Provider: Rosy Bateman, RN)1026 (Given - Provider: Rosy Bateman, RN) midazolam (PF) (VERSED) 1 mg/mL multi-dose injection (CANCELED) ONCE PRN, Starting on Thu09/30/16 at 1014, Until Thu09/30/16 at 1411, Intra-Operative (Intra-Procedure), Routine 1014 (Given - Provid er: Rosy Bateman RN)1020 (Given - Provider: Rosy Bateman RN)1023 (Given - Provider: Rosy Bateman RN)1026 (Given - Provider: Rosy Bateman RN) documented in this encounter Care Teams Movie Machine Operator Relationship Specialty Start Date End Date Clive Shi PA [address] [place] [address] PCP - General General Internal Medicine 09/10/1602/06 documented as of this encounter
--- OUTSIDE RECORDS SUMMARY | 2024-05-30 22:10 | XMS_ITS | Encounter Summary ---
Author Organization [facility] [place] [address] Care Team Providers Care Film Sound Engineer Name Role Phone Génesis Mann MD Primary Care Provider [phone] Encounter Details Date Type Department Care Team (Latest Contact Info) Description 10/24/2020 9:11 AM EDT - 10/24/2020 12:02 PM EDT Hospital En[place] [address] Inga Jameson MD [facility] [place] [address] Discharge Disposition: Home Social History Tobacco Use [...] to be checked. 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 Location: 4T; EA10; A The signing pathologist has (i) examined the relevant preparation(s) for the specimen(s) and (ii) rendered or confirmed the diagnosis(es). . ?Surgical Pathology DIAGNOSIS A - 3mm transverse colon polyp, excision: Tubular adenoma. Electronically signed by: ?Angelica HAMILTON PhD, Colette Verified: ??11/01/2020 10:49 ??Pathologist Performed at: ??-[facility] [place], [place], [place] SPECIMEN(S) SUBMITTED A - 3mm transverse [...] AM EDT Inga Jameson MD PATHOLOGY/CYTOLOGY O TRACIE [facility] [place] [address] * COLONOSCOPY (10/24/2020 10:25 AM EDT) COLONOSCOPY [facility] Endoscopy Procedure Date: 10/24/2020 10:25 AM ? Patient Name: Marcelina Hanna ? Date of : 1960 ? Age: 60 ? Order #: [id number] ? Instrument Name: [id number] ? Procedure: ? Colonoscopy Indications: ? Screening [...] preparation was evaluated using ? the BBPS ([place] Bowel Preparation ? Scale) with scores of: [...] Procedure Code(s): ?? --- Professional --- ? 25135, Colonoscopy, flexible; with ? removal of tumor(s), polyp(s), or ? other lesion(s) by snare technique CPT copyright 2019 [employer]. All rights reserved. The codes documented in this report are preliminary and upon architectural project manager review may be revised to meet current compliance requirements. Attending Participation: ? I personally performed the entire procedure. ? Inga Jameson MD Inga Jameson MD 10/24/2020 11:17:24 AM This report has been signed electronically. Number of Addenda: 0 Note Initiated On: 10/24/2020 10:25 AM [employer] 10/24/2020 10:2 5 AM EDT Génesis Mann MD GENERAL SURGICAL ORD ERABLES Performing Organization Address City/State/[facility] Co de Phone Number [employer] documented in [...] RN) documented in this encounter Care Teams Film Sound Engineer Relationship Specialty Start Date End Date Génesis Mann MD [address] [place] [address] PCP - General Family Medicine 02/07/19 documented as of this encounter
--- OUTSIDE RECORDS SUMMARY | 2024-05-30 22:10 | XMS_ITS | Encounter Summary ---
Author Organization [facility] [place] [address] Care Team Providers Care Manager Food Name Role Phone Génesis Mann MD Primary Care Provider Encounter Details Date Type Department Care Team (Late st Contact Info) Description 10/24/2020 10:05 AM EDT - 10/24/2020 10:50 AM EDT Surgery [place] [address] Inga Jameson MD [facility] [place] [address] COLONOSCOPY, DIAGNOSTIC (WRVU 3.36) Social History Tobacco Use Types Packs/Day Years [...] encounter Discharge Instructions * Discharge Instructions* Tiff Herring RN - 10/24/2020 11:19 AM EDT Colonoscopy [...] When should you call for help? Call [phone] anytime you think you may need emergency [...] to be checked. 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 ??Separate Pathology report to follow Inga Jameson MD PATHOLOGY/CYTOLOGY O RDERABLES [facility] [place] [address] * Surgical Pathology Report (10/24/2020 11:05 AM EDT) Final Diagnosis [id number] ? Location: 4T; EA10; A The signing pathologist has (i) examined the relevant preparation(s) for the specimen(s) and (ii) rendered or confirmed the diagnosis(es). . ?Surgical Pathology DIAGNOSIS A - 3mm transverse colon polyp, excision: Tubular adenoma. Electronically signed by: ?Angelica HAMILTON PhD, [place] Verified: ??11/01/2020 10:49 ??Pathologist Performed at: ??-[facility] Dept. of Pathology, [place], [place] SPECIMEN(S) SUBMITTED A - 3mm transverse colon polyp, excision (1) CLINICAL INFORMATION Screening colonoscopy SPECIMEN PROCESSING A - Labeled/Fixativ e: 3 mm transverse colon polyp, formalin. Quantity/Size: Two, 0.2 and 0.3 cm. Tissue Description: Soft, san-pink tissues. Sections/Proces sing: Submitted en toto ??in 1 cassette labeled A1. ??ajw 11/01/2020 10:49 AM EDT [facility] GI Biopsy 10/24/2020 11:0 5 AM EDT 10/24/2020 11:05 AM EDT Inga Jameson MD PATHOLOGY/CYTOLOGY O RDERABLES [facility] [place] [address] * COLONOSCOPY (10/24/2020 10:25 AM EDT) COLONOSCOPY [facility] Endoscopy Procedure Date: 10/24/2020 10:25 AM ? Patient Name: Marcelina Hanna ? Date of : 1960 ? Age: 60 ? Order #: [id number] ? Instrument Name: [id number] ? Procedure: ? Colonoscopy Indications: ? Screening [...] preparation was evaluated using ? the BBPS ([place] Bowel Preparation ? Scale) with scores of: [...] Procedure Code(s): ?? --- Professional --- ? 93960, Colonoscopy, flexible; with ? removal of tumor(s), polyp(s), or ? other lesion(s) by snare technique CPT copyright 2019 [employer]. All rights reserved. The codes documented in this report are preliminary and upon inspector canvas products review may be revised to meet current [...] RN) documented in this encounter Care Teams Manager Food Relationship Specialty Start Date End Date Génesis Mann MD [address] [place] [address] PCP - General Family Medicine 02/07/19 documented as of this encounter
[2024-06-03 12:36] LABS: Helicobacter pylori Ag, Feces Negative (Negative)
== END 2024-05-30 22:03 | disposition home or self-care (01) ==
LOC: LBN 22:02
PROVIDERS: PCP Family Medicine; Visit Provider Internal Medicine
DX: Z86.19 Personal history of other infectious and parasitic diseases (principal)
CPT/HCPCS: 87338

== ENCOUNTER 2024-12-22 08:17 | Outpatient (CLI) | payer MEDICARE, OTHER, SELFPAY ==
--- NOTE | 2024-12-22 08:00 | DI.RAD_ITS ---
Exam(s) XR KNEE RT 3V AP,LAT,ASH EXAM: XR KNEE RT 3V AP,LAT,ASH CLINICAL HISTORY: right knee pain. TECHNIQUE: 2D digital imaging was performed. Three views. COMPARISON: CR XR KNEE LT 3V AP,LAT,ASH from 03/05/2021 FINDINGS: BONES: No acute fracture is present. No bony destructive lesion is seen. Small enthesophyte at upper pole of patella. JOINTS: The knee is normally aligned. The joint spaces are maintained. No joint effusion is seen. SOFT TISSUE: Normal. IMPRESSION: Unremarkable radiographs of the right knee. DATA REPOSITORY: RADIATION DOSE DELIVERED:
== END 2024-12-22 08:18 | disposition home or self-care (01) ==
LOC: DIORS 08:18
PROVIDERS: PCP Family Medicine; Referring Provider Family Medicine; Visit Provider Physician Assistant
DX: M25.561 Pain in right knee (principal); S83.241A Other tear of medial meniscus, current injury, right knee, initial encounter; W10.8XXA Fall (on) (from) other stairs and steps, initial encounter
CPT/HCPCS: 99213; 73562

== ENCOUNTER 2024-12-28 12:18 | Outpatient (REF) | payer MEDICARE, OTHER, SELFPAY ==
[2024-12-28 16:37] LABS: ALT 86 U/L (14-59); AST 73 U/L (15-37); Albumin 3.5 g/dL (3.4-5.0); Alkaline Phosphatase 152 U/L (46-116); Anion Gap 10.3 mmol/L (3-11); BUN 16 mg/dL (7-18); Bilirubin, Total 0.4 mg/dL (0.2-1.0); CO2 21.7 mmol/L (21.0-32.0); Calcium 8.8 mg/dL (8.5-10.1); Calculated LDL 99 mg/dL (<100); Chloride 105 mmol/L (98-107); Cholesterol 174 mg/dL (<200); Estimated GFR 95.32 (mL/min/1.73m2); Glucose 121 mg/dL (74-106); HDL Cholesterol 48 mg/dL (>or=50); Magnesium 2.3 mg/dL (1.8-2.4); Potassium 4.2 mmol/L (3.5-5.1); Sodium 137 mmol/L (136-145); TSH 0.02 uIU/mL (0.36-3.74); Total Protein 7.3 g/dL (6.4-8.2); Triglyceride 138 mg/dL (<150)
[2024-12-28 16:54] LABS: Hemoglobin A1C 5.9 % (<5.7)
== END 2024-12-28 12:19 | disposition home or self-care (01) ==
LOC: NCHCN 12:18
PROVIDERS: PCP Family Medicine; Visit Provider Family Medicine
DX: E03.9 Hypothyroidism, unspecified (principal); R73.03 Prediabetes
CPT/HCPCS: 80053; 80061; 83036; 83735; 84439; 84443

== ENCOUNTER 2025-01-13 13:37 | Outpatient (CLI) | payer MEDICARE, OTHER, SELFPAY ==
--- NOTE | 2025-01-13 06:30 | DI.MRI_ITS ---
Exam(s) MR LOWER JOINT RT WO EXAM: MR LOWER JOINT RT WO CLINICAL HISTORY: PAIN,TEAR MEDIAL MENISCUS RT KNEE, S83.241A. TECHNIQUE: Multiplanar multisequence MRI was performed. COMPARISON: CR XR KNEE RT 3V AP,LAT,ASH from 12/22/2024 FINDINGS: BONES: There is no evidence of a fracture. There is mild marrow edema seen in the anterior lateral aspect of the proximal tibia which may represent a contusion. JOINTS: There is mild thinning of the articular cartilage overlying the patella particularly medially. There is also mild thinning of the articular cartilage overlying the medial femoral condyle. No effusion is present. TENDONS: Extensor mechanism: Unremarkable. Medial retinaculum: Unremarkable. Lateral retinaculum: Unremarkable. Popliteus: Unremarkable. MUSCLES: Unremarkable. MENISCI: The medial meniscus is unremarkable. The lateral meniscus is unremarkable. SOFT TISSUES: Unremarkable. LIGAMENTS: Anterior Cruciate: The ACL the fibers appear intact. There is mild hyperintense signal seen within the tendon which may represent a sprain. Posterior Cruciate: Unremarkable. Medial Collateral:Unremarkable. Lateral Collateral: Unremarkable. OTHER: IMPRESSION: 1. ACL sprain. 2. There is no evidence of a meniscal tear. 3. Small probable contusion involving the anterior lateral aspect of the proximal tibia. 4. No evidence of a fracture. DATA REPOSITORY:
== END 2025-01-13 13:57 ==
LOC: DI 01-26 13:38
PROVIDERS: PCP Family Medicine; Visit Provider Student in an Organized Health Care Education/Training Program
DX: S83.241A Other tear of medial meniscus, current injury, right knee, initial encounter (principal); X58.XXXA Exposure to other specified factors, initial encounter
CPT/HCPCS: 73721

== ENCOUNTER → 2025-02-02 08:53 | Outpatient (BNVA) | payer MEDICARE, OTHER, SELFPAY | PROVIDERS: PCP Family Medicine; Referring Provider Family Medicine; Visit Provider Student in an Organized Health Care Education/Training Program | DX: S83.241A Other tear of medial meniscus, current injury, right knee, initial encounter (principal); X58.XXXA Exposure to other specified factors, initial encounter | CPT/HCPCS: 99213 ==

== ENCOUNTER → 2025-05-18 00:34 | Outpatient (CLI) | payer MEDICARE, OTHER, SELFPAY ==
--- NOTE | 2025-05-18 | DI.MAMMO_ITS ---
Exam(s) MAMMO SCREENING EXAM: MAMMO SCREENING CLINICAL HISTORY: SCREENING, Z12.31 TECHNIQUE: Bilateral full field digital CC and MLO mammographic images were obtained with 3D tomosynthesis and utilizing computer aided detection (CAD). COMPARISON: Comparison is made with prior examinations. FINDINGS: Masses/Architectural Distortion: No suspicious masses or areas of architectural distortion are present. Microcalcifications: No suspicious pleomorphic-type are seen. Skin Thickening/Nipple Retraction: None. IMPRESSION: 1. No significant interval change with no specific features of malignancy noted. 2. Unless there is more urgent need, screening mammography is recommended, as per [place] [employer] guidelines. BI-RADS Category 1 - Negative Breast Density - Category A - The breast are almost entirely fatty. Breast density Category C or D implies that the patient has dense breast tissue. Dense breast tissue can make it harder to find cancer on a mammogram. Dense breast tissue is also associated with an increased risk of breast cancer. This information about the result of the mammogram report was provided to the patient to raise their awareness. Use this report when you speak with the patient about their risks for breast cancer, which includes their family history. At that time, you may recommend additional screening tests (Ultrasound or MRI) as these tests may add significant information. A negative radiographic report should not delay biopsy if a dominant or clinically suspicious mass is present. Up to ten percent of cancers are not identified on mammography. A negative report may reinforce clinical impression. Adenosis and dense breasts may obscure an underlying neoplasm. False positive reports average 6 to 10%. Patient will receive a letter notifying them of these results.
== END ==
LOC: DI 00:34
PROVIDERS: PCP Family Medicine; Visit Provider Family Medicine
DX: Z12.31 Encounter for screening mammogram for malignant neoplasm of breast (principal)
CPT/HCPCS: 77063; 77067